=== PATIENT | female | born 1965 | race Caucasian/White ===

== ENCOUNTER 2020-10-24 18:21 | Emergency (ER) | payer MEDICAID, SELFPAY ==
[2020-10-24 18:26] VITALS: BP 116/57; PULSE 87; RESP 16; TEMP 36.3; O2SAT 95; BMI 22.6
--- NOTE | 2020-10-24 18:36 | XRR_ITS ---
PROCEDURE INFORMATION: Exam: XR Left Knee Exam date and time: 10/24/2020 6:36 PM Age: 55 years old Clinical indication: Injury or trauma; Fall; Sprain or strain; Patella or knee; Left TECHNIQUE: Imaging protocol: XR Left knee. Views: 3 views. COMPARISON: No relevant prior studies available. FINDINGS: Bones/joints: There is possibly a mildly displaced fracture lucency of anterior tibial eminence. Joint effusion present. Diffuse osseous demineralization changes. Moderate severity diffuse joint space narrowing. Soft tissues: Normal. Vasculature: Scattered atherosclerosis. Other findings: Tibiofemoral alignment is unremarkable. XR/XR knee LT 3V* [id number] IMPRESSION: 1. Fracture of the tibial plateau is suspected in the region of the tibial eminence. 2. CT left knee recommended.
--- NOTE | 2020-10-24 18:46 | W.ED.EXTPRO ---
HPI - Extremity Problem General: Chief complaint: Extremity Injury, Lower Stated complaint: Twisted L. Knee Time Seen by Provider: 10/24/20 18:36 History of Present Illness: HPI Narrative: 55-year-old female comes in today with complaints of left knee injury. On exam patient has tenderness along the lateral medial joint line. Patient is able to manipulate the knee but has some decrease in extension. Patient reports she was getting up and she twisted her knee. Patient does have a history of a left hip replacement. Patient appears well. Patient appears no acute distress. MD Complaint: joint pain Onset (ago): hour(s) Location: left (knee) Quality: sharp Relieving factors: rest Exacerbating factors: weight bearing Review of Systems General: Reports: 10 or more systems reviewed and unremarkable except in HPI and below Musc: Reports: other (twisted left knee) Physical Exam Const: COMMON NORMALS: no acute distress and patient oriented x3 GENERAL APPEARANCE: cooperative HENMT: COMMON NORMALS: normocephalic and Normal external nose present HEAD & SCALP: normal to inspection and normocephalic NOSE: Normal external nose present Eye: GENERAL EYE: appearance normal, both eyes and all related structures Neck/C-Spine: COMMON NORMALS: full ROM Chest: COMMONS NORMALS: normal inspection of the chest Resp: COMMON NORMALS: normal respiratory effort EFFORT & INSPECTION: Yes able to speak in complete sentences Cardio: COMMON NORMALS: regular rate and regular rhythm RATE: regular rate RHYTHM: regular rhythm Extremity: NARRATIVE EXTREMITY EXAM: Varicose veins, tenderness of the joint line of the left knee with minimal swelling. Distal pulses are intact. Skin is warm and dry. Decrease in extension. No obvious deformity. Patient is able to lift the leg off the floor and manipulated. Stable joint with pressure tests along each of the axis. Neuro: COMMON NORMALS: patient oriented x3 and moves all extremities Psych: COMMON NORMALS: mental status grossly normal and cooperative Skin: COMMON NORMALS: no rashes or lesions noted GENERAL SKIN EXAM: no rashes or lesions noted Course Vital Signs: Vital signs: Vital Signs Temperature 97.3 F L 10/24/20 18:26 Pulse Rate 87 10/24/20 19:00 Respiratory Rate 16 10/24/20 19:00 Blood Pressure 119/90 10/24/20 19:00 Pulse Oximetry 98 10/24/20 19:00 MDM - Extremity (Nontraumatic) MDM Narrative: Medical decision making narrative: Patient comes in today for complaints of injury to the left knee. On exam patient has tenderness to the joint line of the knee. Some decrease in the extension. Minimal swelling. No sign of redness or inflammation. Differential diagnosis includes sprain, cartilage or meniscal injury, fracture. X-ray was normal. Reviewed exam with patient with recommendations for treatment and follow-up. Patient reported understanding agreed to plan. Discharge Plan Discharge Patient Disposition: Home Clinical Impression: Injury of knee, left Qualifiers: Encounter type: initial encounter Qualified Code(s): S89.92XA - Unspecified injury of left lower leg, initial encounter Condition: Stable Prescriptions: New diclofenac potassium 50 mg tablet 50 mg PO TID PRN (Reason: pain) Qty: 12 RF: 0 Discharge Orders: Discharge ED (Routine); Ordered 10/24/20 Ordered By: Benito Tang Discharge Diet: Usual diet Discharge Activity: Increase activity as tolerated Patient Instructions: Knee Sprain (ED), Opioid Safety Activity Restrictions/Additional Instructions: Take medication as directed. Use ice on the knee on and off for the first 48 hours. After that use heat or ice either for comfort. Use an elastic bandage as needed for comfort. Increase activity to the knee as tolerated. Use crutches for ambulation if unable to bear weight on it. Follow-up with primary care in 1 week for recheck. Return to the emergency department for new concerns. Coding Level of Care Code ED Automatic Spinning Lathe Operator for Chuyita Fwruth Exam Comprehensive
[2020-10-24 19:00] VITALS: BP 119/90; PULSE 87; RESP 16; O2SAT 98
--- NOTE | 2020-10-25 11:20 | PC.NURSE ---
Attempted to call pt in regards to XR results per Dr Barreto request. Unable to reach pt, message left.
--- NOTE | 2020-10-25 11:29 | PC.NURSE ---
Pt contacted and notified that she needs to return to ED for further evaluation.
== END 2020-10-24 19:49 | disposition home or self-care (01) ==
PROVIDERS: Emergency Provider Nurse Practitioner Family
DX: S89.92XA Unspecified injury of left lower leg, initial encounter (principal); X50.1XXA Overexertion from prolonged static or awkward postures, initial encounter
CPT/HCPCS: 73562; 99283; E0114

== ENCOUNTER 2020-10-25 15:01 | Emergency (ER) | payer MEDICAID, SELFPAY ==
--- NOTE | 2020-10-25 15:08 | CT_ITS ---
WS: [id number] Exam: CT knee LT wo con* [id number] Date/Time of Exam: 10/25/2020 3:40 PM Reason For Exam: possible tibeal plateau fracture DLP: 153.[address] scans at [facility] use at least one of these dose optimization techniques: automat ed exposure control; mA and/or kV adjustment per patient size (includes targeted exams where dose is matched to clinical indication); or iterative reconstruction. Knees evaluated in the axial plane with sagittal and coronal reformatted images. A mildly depressed comminuted fracture of the lateral tibial plateau is noted. Fractures also extend into the central proximal tibia in the region of the tibial spines. The anterior tibial spine is avul sed and slightly . The distal femur is intact. There is hemarthrosis. Diffuse osteopenia. Th e fibula is intact. CT/CT knee LT wo con* [id number] IMPRESSION: 1. Comminuted slightly depressed fracture of the lateral tibial plateau. 2. Comminuted fracture of the tibial eminence with avulsion of the anterior tib ial spine. Nondisplaced fracture of the posterior tibial spine also noted. 3. Hemarthrosis.
[2020-10-25 15:20] VITALS: BP 156/80; PULSE 75; RESP 18; TEMP 36.9; O2SAT 99; BMI 22.6
--- NOTE | 2020-10-25 15:37 | ED_ITS ---
HPI - Extremity Problem General: Chief complaint: Extremity Injury, Lower Stated complaint: RECHECK FROM LAST NIGHT PER [facility]IA Time Seen by Provider: 10/25/20 15:27 History of Present Illness: HPI Narrative: Patient presents with follow-up on left knee were possibly sustained a fracture of the tibial plateau radiology recommend a CT done. Complaint: extremity pain Onset (ago): hour(s) Pain Consistency: constant Location: left and knee Severity scale (1-10): 6 Quality: aching Relieving factors: immobilization Exacerbating factors: weight bearing Associated symptoms: Reports no associated symptoms; Deny fever(s) Review of Systems Const: Denies: fever(s) or chills Musc: Reports: joint pain Psych: Denies: anxiety Physical Exam Const: COMMON NORMALS: no acute distress Extremity: LEFT LOWER EXTREMITY: Yes knee joint (Swelling pain) Psych: COMMON NORMALS: mental status grossly normal Course Vital Signs: Vital signs: Vital Signs Temperature 98.5 F 10/25/20 15:20 Pulse Rate 75 10/25/20 15:20 Respiratory Rate 18 10/25/20 15:20 Blood Pressure 156/80 10/25/20 15:20 Pulse Oximetry 99 10/25/20 15:20 Discharge Plan Discharge Prescriptions: No Action diclofenac potassium 50 mg tablet 50 mg PO TID PRN (Reason: pain) Qty: 12 RF: 0 Coding Level of Care Code ED Examiner Of Currency for Chuyita Parsons
--- NOTE | 2020-10-28 08:07 | DCPLANNER ---
game breeding farm manager had message to schedule a follow up appointment scheduled for patient with ortho. game breeding farm manager called the ortho clinic, spoke with Juani, gave clinic patients information to clinic. game breeding farm manager was told that patients information would be printed and reviewed. Clinic will call patient with appointment information.
--- NOTE | 2020-11-15 07:22 | DCPLANNER ---
Patient had a follow up appointment scheduled for 10.29.[address] Bowie at [facility] - patient did attend appointment.
== END 2020-10-25 16:57 | disposition home or self-care (01) ==
PROVIDERS: Emergency Provider Nurse Practitioner Family
DX: M25.562 Pain in left knee (principal)
CPT/HCPCS: 29530; 73700; 99283

== ENCOUNTER → 2020-11-26 13:57 | Outpatient (BNVA) | payer MEDICAID, SELFPAY | PROVIDERS: Visit Provider Orthopaedic Surgery | DX: S82.115A Nondisplaced fracture of left tibial spine, initial encounter for closed fracture (principal); X58.XXXA Exposure to other specified factors, initial encounter | CPT/HCPCS: 73562 ==

== ENCOUNTER → 2021-01-30 08:02 | Outpatient (BNVA) | payer MEDICAID, SELFPAY | PROVIDERS: PCP Nurse Practitioner Family; Referring Provider Orthopaedic Surgery; Visit Provider Specialist | DX: R20.0 Anesthesia of skin (principal); R20.2 Paresthesia of skin; M79.604 Pain in right leg; M79.605 Pain in left leg; F17.200 Nicotine dependence, unspecified, uncomplicated | CPT/HCPCS: 95886; 95909; 99202 ==

== ENCOUNTER 2021-02-20 18:19 | Emergency (ER) | payer MEDICAID, SELFPAY ==
[2021-02-20 18:25] VITALS: BP 149/105; PULSE 90; RESP 19; TEMP 35.9; O2SAT 99; BMI 22.6
[2021-02-20] MEDS: sodium chloride 0.9% 1,000 ML 999 ML IV ×2 (19:05→20:26)
--- NOTE | 2021-02-20 19:05 | ED_ITS ---
HPI - General Adult General: Chief complaint: General Medical Stated complaint: ETOH INTOX Time Seen by Provider: 02/20/21 18:31 History of Present Illness: HPI narrative: This patient presents to the emergency department via EMS. She states she is here because she thinks she needs some fluids to help with her detox and sobering up. She states she has been drinking alcohol daily for the last several days. She states she desires to quit drinking. She has had a longstanding history of recurrent drinking but not to this level. She has no thoughts of harming herself. She denies any other constitutional complaints at this time. Associated symptoms: Reports vomiting; Deny chest pain, dyspnea, headache(s), rash or palpitations Review of Systems Const: Denies: fever(s) or chills Eyes: Reports: blind spots; Denies: change in vision, blurry vision or eye discomfort ENMT: Denies: throat pain, odynophagia or nasal obstruction Card: Denies: chest pain, palpitations, irregular heart rhythm or edema Resp: Denies: dyspnea or productive cough GI: Reports: vomiting; Denies: abdominal pain, hematemesis or coffee ground emesis : Denies: flank pain, difficulty voiding or dysuria Musc: Denies: neck pain, back pain or extremity pain Skin/Breast: Denies: rash or pruritus Neuro: Denies: headache(s), numbness in extremities or sensory changes Psych: Denies: depression, mood swings, panic attacks, sleeping less, sleeping more, change in appetite, irritability, visual hallucinations, auditory hallucinations, tactile hallucinations, suicidal ideation or homicidal ideation [facility] ED PFSH: Social History Smoking and tobacco status: current some day smoker (occassionally) Physical Exam Const: COMMON NORMALS: no acute distress and patient oriented x3 OTHER: She makes good eye contact. She is very loquacious but goal-directed in her speech. HENMT: THROAT: posterior oropharynx normal Eye: COMMON NORMALS: Equal, round and reactive pupils present and EOMs intact bilaterally CONJUNCTIVA: Yes conjunctival abnormal (Injected) PUPIL: Yes Equal, round and reactive pupils present Neck/C-Spine: COMMON NORMALS: full ROM and no lymphadenopathy Chest: COMMONS NORMALS: normal inspection of the chest Resp: COMMON NORMALS: normal respiratory effort, No retractions and clear to auscultation bilaterally AUSCULTATION: clear to auscultation bilaterally Cardio: COMMON NORMALS: regular rhythm and No murmurs present (Cardio) RHYTHM: regular rhythm GI: COMMON NORMALS: Normal to inspection, nondistended, normoactive bowel sounds present, Soft to palpation and non-tender PALPATION: Yes Soft to palpation : COMMON NORMALS: Yes no CVA tenderness BLADDER/KIDNEY EXAM: Yes no CVA tenderness and Yes CVA tenderness Back/Pelvis: COMMON NORMALS: no CVA tenderness, thoracic and lumbar spine normal to inspection, no thoracic nor lumbar tenderness and thoraco-lumbar ROM normal GENERAL BACK: Yes CVA tenderness Extremity: COMMON NORMALS: normal to inspection, full ROM, capillary refill normal, no joint enlargement and no calf tenderness Neuro: COMMON NORMALS: patient oriented x3, moves all extremities, no focal motor deficits, no sensory deficits noted and gait normal CRANIAL NERVES: Yes CN normal except as noted Skin: COMMON NORMALS: no rashes or lesions noted and no wounds GENERAL SKIN EXAM: no rashes or lesions noted Course Reevaluation(s): Reevaluation #1: The patient is desires to leave the emergency department. I advised her there is probably a good idea for us to give her a little bit of fluids as well as some Pepcid to make her feel subjectively improved. We will also start her on course of Librium to help her withdrawal from alcohol. She again is stable and has had no thoughts of harming herself and her ultimate desires to go home with family. Vital Signs: Vital signs: Vital Signs Temperature 96.6 F L 02/20/21 18:25 Pulse Rate 90 02/20/21 18:25 Respiratory Rate 19 H 02/20/21 18:25 Blood Pressure 149/105 02/20/21 18:25 Pulse Oximetry 99 02/20/21 18:25 Discharge Plan Discharge Prescriptions: No Action diclofenac potassium 50 mg tablet 50 mg PO TID PRN (Reason: pain) Qty: 12 RF: 0 hydrocodone-acetaminophen 5-325 mg tablet 1 tab PO TID PRN (Reason: pain) Qty: 14 RF: 0 Coding Level of Care Code ED Mowing Machine Operator for Chg Fwd Exam Comprehensive
[2021-02-20] MEDS: famotidine 20 mg/2 mL INJ IVP (19:08)
[2021-02-20] MEDS: chlordiazePOXIDE 25 mg Capsule PO (19:27)
[2021-02-20 19:28] LABS: Basophils # 0.1 10^3/uL (0.0-0.1); Basophils % 0.7 %; Eosinophils # 0.2 10^3/uL (0.0-0.8); Eosinophils % 2.3 %; Hematocrit 43.3 % (37.0-47.0); Hemoglobin 14.6 g/dL (11.5-15.3); Lymphocytes # 3.6 10^3/uL (0.8-4.8); Lymphocytes % 41.7 %; Mean Corpuscular HGB Conc 33.7 g/dL (30.0-36.0); Mean Corpuscular Volume 91.9 fl (81-99); Mean Platelet Volume 10.2 fL (7.4-10.4); Monocytes # 0.5 10^3/uL (0.2-0.9); Monocytes % 5.5 %; Neutrophils # 4.24 10^3/uL (1.8-7.7); Neutrophils % 49.3 %; Nucleated Red Blood Cells % 0 %; Platelet Count 256 10^3/cmm (130-400); Red Blood Count 4.71 10^6/uL (4.1-5.3); Red Cell Distribution Width 15.2 % (12.1-15.1); White Blood Count 8.6 10^3/uL (4.0-10.0)
[2021-02-20 19:51] LABS: Alanine Aminotransferase 16 U/L (0-33); Albumin Level 4.3 g/dL (3.5-5.2); Alkaline Phosphatase 94 IU/L (35-105); Anion Gap 15.6 (5-19); Aspartate Amino Transferase 31 U/L (0-32); Blood Urea Nitrogen 10 mg/dL (6-20); Calcium 8.6 mg/dL (8.5-10.5); Carbon Dioxide 26 mmol/L (22-29); Chloride 104 mmol/L (98-107); Globulin 2.7 g/dL (1.3-4.6); Glomerular Filtration Rate 86.6 mL/min (90-130); Glucose 106 mg/dL (65-115); Magnesium 2.4 mg/dL (1.7-2.3); Osmolality Calculated 293 mOsm/kg (285-295); Potassium 3.6 mmol/L (3.5-5.1); Sodium 142 mmol/L (136-145); Total Bilirubin 0.3 mg/dL (0.15-1.2)
[2021-02-20 21:05] VITALS: BP 142/98
[2021-02-20 21:09] VITALS: BP 142/84; RESP 20; O2SAT 94
== END 2021-02-20 21:10 | disposition home or self-care (01) ==
PROVIDERS: Emergency Provider Emergency Medicine; PCP Nurse Practitioner Family
DX: F10.129 Alcohol abuse with intoxication, unspecified (principal); F17.210 Nicotine dependence, cigarettes, uncomplicated
CPT/HCPCS: 80053; 83735; 85025; 96361; 96374; 99283; J3490; J7030

== ENCOUNTER → 2021-03-20 14:09 | Outpatient (BNVA) | payer MEDICAID, SELFPAY | PROVIDERS: PCP Nurse Practitioner Family; Visit Provider Orthopaedic Surgery | DX: M79.604 Pain in right leg (principal); M79.605 Pain in left leg; M54.50 Low back pain, unspecified | CPT/HCPCS: 72100; 73562 ==

== ENCOUNTER 2021-04-13 16:46 | Emergency (ER) | payer MEDICAID, SELFPAY ==
[2021-04-13 16:55] VITALS: BP 152/84; PULSE 85; RESP 16; TEMP 36.7; O2SAT 97
--- NOTE | 2021-04-13 17:01 | ECG_ITS ---
[facility] Test Date: 2021-04-13 Pat Name: Tomeka Morrison Department: Room: Gender: Female Mva Reactor Operator Head: : 1965 Requested By: Amena Lawton Order Number: [id number] Misha MD: Andrea Figueredo M.D. Measurements Intervals [place] Rate: 82 P: 16 IA: 130 QRS: 121 QRSD: 116 T: -7 QT: 422 QTc: 494 Interpretive Statements SINUS RHYTHM LEFT ATRIAL ENLARGEMENT [-0.15mV P-WAVE IN V1/V2] LEFT POSTERIOR FASCICULAR BLOCK [QRS AXIS > 109, INFERIOR Q] PROBABLE INFERIOR MYOCARDIAL INFARCTION , OF INDETERMINATE AGE [35 ms Q WAVE IN II/aVF] No previous ECG available for comparison Electronically Signed On 04-14-2021 17:10:26 RETAIL ROUTE SUPERVISOR by Andrea Figueredo M.D. [id number]
--- NOTE | 2021-04-13 17:26 | ED_ITS ---
Documented by User: Amena Lawton MD 04/13/21 17:33 HPI - General Adult General: Chief complaint: Abdominal Pain Stated complaint: UPPER ABD PAIN: N/V/D Time Seen by Provider: 04/13/21 16:58 History of Present Illness: HPI narrative: Patient is a 56-year-old female with history of CAD s/p stent x2, irritable bowel syndrome followed by Dr. Spencer presenting to emergency room with worsening mid epigastric Silvestre pain. Patient tells me the last 2 months she has had intermittent abdominal cramps, with occasional constipation and diarrhea. Patient denies any melena or hematochezia. Earlier today, patient drink significant alcohol has had midepigastric dull pain. Patient describes as gnarly abdominal pain associated nausea and vomiting. Patient presents emergency room for evaluation of pain. Patient states that she has yet to follow-up with a GI doctor for further evaluation of her symptoms. Denies any chest pain, shortness breath, diaphoresis, exertional dyspnea or chest pain. Patient has no pleuritic chest pain. No extremity surgery immobilization, denies hemoptysis. No history of DVT/PE or family or personal history aneurysm in the past. Onset: chronically 2 month, currently 6 hrs Duration:ongoing Location:home Severity:moderate Review of Systems Narrative: Constitutional: No fever, no chills. HEENT: No vision changes CV: No chest pain, no palpitations PULM: no cough, no dyspnea. GI: +rachel-epigstric abdominal pain, no N/V/D. : No dysuria MSKEL: No muscle pain SKIN: No new rashes, no lesions. NEURO: No headache, no focal weakness. HEME: No visible bruises PSYCH: Normal mood PFSH ED PFSH: Medical History Abdominal cramping GERD (gastroesophageal reflux disease) Smoker Social History Smoking and tobacco status: current every day smoker Physical Exam Narrative: EXAM NARRATIVE: Head: Atraumatic Eyes: PERRL, conjunctiva without injection ENT: Mucous membrane moist NECK: Supple, ROM intact LUNGS: LCTAB, no crackles/rhonchi CV: RRR ABDOMEN: Soft, +mild epigastric/LUQ/RLQ abdominal TTP. NO guarding rebound, guarding, rigidity. No CVA tenderness to percussion. Neg Grey/Neg McBurney's point tenderness, no suprabupic tenderness to palpation. EXTREMITY: Normal ROM SKIN: No rash or erythema NEURO: Awake and alert, no focal motor deficits PSYCH: Normal mood and affect Course Vital Signs: Vital signs: Vital Signs Temperature 98.1 F 04/13/21 16:55 Pulse Rate 79 04/13/21 18:02 Respiratory Rate 20 H 04/13/21 18:02 Blood Pressure 124/76 04/13/21 18:02 Pulse Oximetry 98 04/13/21 18:02 MDM - General Adult MDM Narrative: Medical decision making narrative: 56-year-old female history of CAD s/p stents x2, IBS presenting to emergency room with acute onset of midepigastric gabriele pain. On exam, patient is afebrile, hemodynamically stable with mild tenderness palpation upper quadrants. No Grey sign. Present time, do not suspect outflow stone pathology. Work-up including CBC CM P, lipase, troponin x2, EKG Interventions include IVF, Zofran, GI cocktail, and PO challenge Case signed out to Dr. Pacheco pending workup and reassessment Lab Data: Labs: Lab Results 04/13/21 04/13/21 04/13/21 17:42 17:42 17:42 WBC 8.4 10^3/uL 10^3/ uL (4.0-10.0) RBC 4.15 10^6/uL 10^6 /uL (4.1-5.3) Hgb 13.5 g/dL g/dL (11.5-15.3) Hct 40.1 % % (37.0-47.0) MCV 96.6 fl fl (81-99) MCH 32.5 pg pg (28.0-34.0) MCHC 33.7 g/dL g/dL (30.0-36.0) RDW 16.6 % H % (12.1-15.1) Plt Count 226 10^3/cmm 10^3 /cmm (130-400) MPV 9.9 fL fL (7.4-10.4) Neut % (Auto) 57.0 % % Lymph % (Auto) 35.3 % % [place] % (Auto) 6.1 % % Eos % (Auto) 0.8 % % Baso % (Auto) 0.4 % % Neut # (Auto) 4.81 10^3/uL 10^3 /uL (1.8-7.7) Lymph # (Auto) 3.0 10^3/uL 10^3/ uL (0.8-4.8) [place] # (Auto) 0.5 10^3/uL 10^3/ uL (0.2-0.9) Eos # (Auto) 0.1 10^3/uL 10^3/ uL (0.0-0.8) Baso # (Auto) 0.0 10^3/uL 10^3/ uL (0.0-0.1) Nucleated RBC % (a uto) 0 % % Nucleated RBCs # 0.0 /100WBC /100W BC Sodium 144 mmol/L mmol/L (136-145) Potassium 3.0 mmol/L L mmol /L (3.5-5.1) Chloride 102 mmol/L mmol/L (98-107) Carbon Dioxide 26 mmol/L mmol/L (22-29) Anion Gap 19.0 (5-19) BUN 5 mg/dL L mg/dL (6-20) Creatinine 0.6 mg/dL mg/dL (0.5-0.9) GFR Calculation 103.0 mL/min mL/m in (90-130) Glucose 100 mg/dL mg/dL (65-115) Calculated Osmolal ity 295 mOsm/kg mOsm/ kg (285-295) Calcium 7.6 mg/dL L mg/dL (8.5-10.5) Magnesium Total Bilirubin 0.3 mg/dL mg/dL (0.15-1.2) AST 155 U/L H U/L (0-32) ALT 26 U/L U/L (0-33) Alkaline Phosphata se 105 IU/L IU/L (35-105) Troponin T Gen 5 n g/L 8 ng/L ng/L (0-10) Total Protein 5.9 g/dL L g/dL (6.6-8.7) Albumin 3.8 g/dL g/dL (3.5-5.2) Globulin 2.1 g/dL g/dL (1.3-4.6) Lipase 162 U/L H U/L (13-60) Urine Color Urine Appearance Urine pH Ur Specific Gravit y Urine Protein Urine Glucose (UA) Urine Ketones Urine Blood Urine Nitrate Urine Bilirubin Urine Urobilinogen Ur Leukocyte Bisi ase Urine Opiates Scre en Ur Barbiturates Sc reen Ur Phencyclidine S crn Ur Amphetamines Sc reen U Benzodiazepines Scrn Urine Cocaine Scre en U Marijuana (THC) Screen Ethyl Alcohol 04/13/21 04/13/21 04/13/21 17:42 18:01 18:01 WBC RBC Hgb Hct MCV MCH MCHC RDW Plt Count MPV Neut % (Auto) Lymph % (Auto) [place] % (Auto) Eos % (Auto) Baso % (Auto) Neut # (Auto) Lymph # (Auto) [place] # (Auto) Eos # (Auto) Baso # (Auto) Nucleated RBC % (a uto) Nucleated RBCs # Sodium Potassium Chloride Carbon Dioxide Anion Gap BUN Creatinine GFR Calculation Glucose Calculated Osmolal ity Calcium Magnesium 1.6 mg/dL L mg/dL (1.7-2.3) Total Bilirubin AST ALT Alkaline Phosphata se Troponin T Gen 5 n g/L Total Protein Albumin Globulin Lipase Urine Color Yellow (Yellow) Urine Appearance Clear (CLEAR) Urine pH 7 (5-7) Ur Specific Gravit y 1.005 (1.005-1.030) Urine Protein Neg (Negative) Urine Glucose (UA) Norm (Normal) Urine Ketones Negative (Negative) Urine Blood Neg (Negative) Urine Nitrate Negative (Negative) Urine Bilirubin Neg (Negative) Urine Urobilinogen Norm mg/dL mg/dL (Negative) Ur Leukocyte Bisi ase Negative (Negative) Urine Opiates Scre en Negative ng/mL ng /mL (Negative) Ur Barbiturates Sc reen Negative ng/mL ng /mL (Negative) Ur Phencyclidine S crn Negative ng/mL ng /mL (Negative) Ur Amphetamines Sc reen Negative ng/mL ng /mL (Negative) U Benzodiazepines Scrn Negative ng/mL ng /mL (Negative) Urine Cocaine Scre en Negative ng/mL ng /mL (Negative) U Marijuana (THC) Screen Negative ng/mL ng /mL (Negative) Ethyl Alcohol 316 mg/dL H* mg/d L (0-10) Discharge Plan Discharge Patient Disposition: Home Clinical Impression: Abdominal pain, Nausea & vomiting, Gastritis Condition: Stable Prescriptions: New Zofran 4 mg tablet 4 mg PO TID PRN (Reason: nausea and vomiting) 4 Days Qty: 12 RF: 0 Pepcid 20 mg tablet 20 mg PO BID PRN (Reason: abdominal pain) 10 Days Qty: 20 RF: 0 Maalox Advanced 1,000-60 mg tablet,chewable 1 tab PO TID PRN (Reason: abdominal pain) 7 Days Qty: 21 RF: 0 No Action metoprolol tartrate 25 mg tablet 25 mg PO BID RF: 0 pantoprazole 20 mg tablet,delayed release (DR/EC) 20 mg PO DAILY Qty: 30 RF: 0 atorvastatin 40 mg tablet 40 mg PO DAILY Qty: 30 RF: 0 aspirin [Adult Aspirin Regimen] 81 mg tablet,delayed release (DR/EC) 81 mg PO DAILY Qty: 60 RF: 0 montelukast 10 mg tablet 10 mg PO DAILY Qty: 30 RF: 0 dicyclomine 20 mg tablet 20 mg PO .q8 Qty: 30 RF: 1 Discharge Orders: Discharge ED (Routine); Ordered 04/13/21 Ordered By: Reyes Pacheco Referrals: Miguel Kunz MD [Physician] - 4-7 days Zazueta,PILAR Connors [Primary Care Provider] - 1-3 days Discharge Diet: Advance as tolerated Discharge Activity: Resume usual activity Patient Instructions: Abdominal Pain (ED) Activity Restrictions/Additional Instructions: Please come back if you have any worsening abdominal pain, fever or chills, nausea or vomiting, diarrhea, blood in the stool, inability hold down liquid or solids, or any new concerning complaints. Our director of casework department will have you follow-up with Surgery [facility] to see if an endoscopy is needed to look at your stomach. Medications as directed. Coding Level of Care Code ED Compliance Monitor for Chg Fwd Documented by User: Reyes Pacheco DO 04/13/21 19:33 HPI - General Adult General: Chief complaint: Abdominal Pain Stated complaint: UPPER ABD PAIN: N/V/D Time Seen by Provider: 04/13/21 16:58 PFSH ED PFSH: Medical History Abdominal cramping GERD (gastroesophageal reflux disease) Smoker Social History Smoking and tobacco status: current every day smoker Course Vital Signs: Vital signs: Vital Signs Temperature 98.1 F 04/13/21 16:55 Pulse Rate 79 04/13/21 18:02 Respiratory Rate 20 H 04/13/21 18:02 Blood Pressure 124/76 04/13/21 18:02 Pulse Oximetry 98 04/13/21 18:02 MDM - General Adult MDM Narrative: Medical decision making narrative: 56-year-old female checked out to me by Dr. Lawton at shift change. This lady is a daily drinker of late. She has epigastric pain, improved with GI cocktail. She was given Zofran, and has not vomited here. Her potassium is 3.0, calcium is low. Magnesium is mildly low. Urine drug screen is negative. Alcohol is 315. She has no leukocytosis or fever. No significant elevation in her liver enzymes save a mildly elevated AST from drinking. She has a mildly elevated lipase questionably from vomiting versus alcoholic pancreatitis. She will be allowed home on liquid diet, to abstain from alcohol, Carafate and PPI for treatment as well as Zofran for nausea. She needs to follow-up with an endoscopist. Lab Data: Labs: Lab Results 04/13/21 04/13/21 04/13/21 17:42 17:42 17:42 WBC 8.4 10^3/uL 10^3/ uL (4.0-10.0) RBC 4.15 10^6/uL 10^6 /uL (4.1-5.3) Hgb 13.5 g/dL g/dL (11.5-15.3) Hct 40.1 % % (37.0-47.0) MCV 96.6 fl fl (81-99) MCH 32.5 pg pg (28.0-34.0) MCHC 33.7 g/dL g/dL (30.0-36.0) RDW 16.6 % H % (12.1-15.1) Plt Count 226 10^3/cmm 10^3 /cmm (130-400) MPV 9.9 fL fL (7.4-10.4) Neut % (Auto) 57.0 % % Lymph % (Auto) 35.3 % % [place] % (Auto) 6.1 % % Eos % (Auto) 0.8 % % Baso % (Auto) 0.4 % % Neut # (Auto) 4.81 10^3/uL 10^3 /uL (1.8-7.7) Lymph # (Auto) 3.0 10^3/uL 10^3/ uL (0.8-4.8) [place] # (Auto) 0.5 10^3/uL 10^3/ uL (0.2-0.9) Eos # (Auto) 0.1 10^3/uL 10^3/ uL (0.0-0.8) Baso # (Auto) 0.0 10^3/uL 10^3/ uL (0.0-0.1) Nucleated RBC % (a uto) 0 % % Nucleated RBCs # 0.0 /100WBC /100W BC Sodium 144 mmol/L mmol/L (136-145) Potassium 3.0 mmol/L L mmol /L (3.5-5.1) Chloride 102 mmol/L mmol/L (98-107) Carbon Dioxide 26 mmol/L mmol/L (22-29) Anion Gap 19.0 (5-19) BUN 5 mg/dL L mg/dL (6-20) Creatinine 0.6 mg/dL mg/dL (0.5-0.9) GFR Calculation 103.0 mL/min mL/m in (90-130) Glucose 100 mg/dL mg/dL (65-115) Calculated Osmolal ity 295 mOsm/kg mOsm/ kg (285-295) Calcium 7.6 mg/dL L mg/dL (8.5-10.5) Magnesium Total Bilirubin 0.3 mg/dL mg/dL (0.15-1.2) AST 155 U/L H U/L (0-32) ALT 26 U/L U/L (0-33) Alkaline Phosphata se 105 IU/L IU/L (35-105) Troponin T Gen 5 n g/L 8 ng/L ng/L (0-10) Total Protein 5.9 g/dL L g/dL (6.6-8.7) Albumin 3.8 g/dL g/dL (3.5-5.2) Globulin 2.1 g/dL g/dL (1.3-4.6) Lipase 162 U/L H U/L (13-60) Urine Color Urine Appearance Urine pH Ur Specific Gravit y Urine Protein Urine Glucose (UA) Urine Ketones Urine Blood Urine Nitrate Urine Bilirubin Urine Urobilinogen Ur Leukocyte Bisi ase Urine Opiates Scre en Ur Barbiturates Sc reen Ur Phencyclidine S crn Ur Amphetamines Sc reen U Benzodiazepines Scrn Urine Cocaine Scre en U Marijuana (THC) Screen Ethyl Alcohol 04/13/21 04/13/21 04/13/21 17:42 18:01 18:01 WBC RBC Hgb Hct MCV MCH MCHC RDW Plt Count MPV Neut % (Auto) Lymph % (Auto) [place] % (Auto) Eos % (Auto) Baso % (Auto) Neut # (Auto) Lymph # (Auto) [place] # (Auto) Eos # (Auto) Baso # (Auto) Nucleated RBC % (a uto) Nucleated RBCs # Sodium Potassium Chloride Carbon Dioxide Anion Gap BUN Creatinine GFR Calculation Glucose Calculated Osmolal ity Calcium Magnesium 1.6 mg/dL L mg/dL (1.7-2.3) Total Bilirubin AST ALT Alkaline Phosphata se Troponin T Gen 5 n g/L Total Protein Albumin Globulin Lipase Urine Color Yellow (Yellow) Urine Appearance Clear (CLEAR) Urine pH 7 (5-7) Ur Specific Gravit y 1.005 (1.005-1.030) Urine Protein Neg (Negative) Urine Glucose (UA) Norm (Normal) Urine Ketones Negative (Negative) Urine Blood Neg (Negative) Urine Nitrate Negative (Negative) Urine Bilirubin Neg (Negative) Urine Urobilinogen Norm mg/dL mg/dL (Negative) Ur Leukocyte Bisi ase Negative (Negative) Urine Opiates Scre en Negative ng/mL ng /mL (Negative) Ur Barbiturates Sc reen Negative ng/mL ng /mL (Negative) Ur Phencyclidine S crn Negative ng/mL ng /mL (Negative) Ur Amphetamines Sc reen Negative ng/mL ng /mL (Negative) U Benzodiazepines Scrn Negative ng/mL ng /mL (Negative) Urine Cocaine Scre en Negative ng/mL ng /mL (Negative) U Marijuana (THC) Screen Negative ng/mL ng /mL (Negative) Ethyl Alcohol 316 mg/dL H* mg/d L (0-10) Discharge Plan Discharge Patient Disposition: Home Clinical Impression: Abdominal pain, Nausea & vomiting, Gastritis Condition: Stable Prescriptions: New Zofran 4 mg tablet 4 mg PO TID PRN (Reason: nausea and vomiting) 4 Days Qty: 12 RF: 0 Pepcid 20 mg tablet 20 mg PO BID PRN (Reason: abdominal pain) 10 Days Qty: 20 RF: 0 Maalox Advanced 1,000-60 mg tablet,chewable 1 tab PO TID PRN (Reason: abdominal pain) 7 Days Qty: 21 RF: 0 No Action metoprolol tartrate 25 mg tablet 25 mg PO BID RF: 0 pantoprazole 20 mg tablet,delayed release (DR/EC) 20 mg PO DAILY Qty: 30 RF: 0 atorvastatin 40 mg tablet 40 mg PO DAILY Qty: 30 RF: 0 aspirin [Adult Aspirin Regimen] 81 mg tablet,delayed release (DR/EC) 81 mg PO DAILY Qty: 60 RF: 0 montelukast 10 mg tablet 10 mg PO DAILY Qty: 30 RF: 0 dicyclomine 20 mg tablet 20 mg PO .q8 Qty: 30 RF: 1 Discharge Orders: Discharge ED (Routine); Ordered 04/13/21 Ordered By: Reyes Pacheco Referrals: Miguel Kunz MD [Physician] - 4-7 days Zazueta,PILAR Connors [Primary Care Provider] - 1-3 days Discharge Diet: Advance as tolerated Discharge Activity: Resume usual activity Patient Instructions: Abdominal Pain (ED) Activity Restrictions/Additional Instructions: Please come back if you have any worsening abdominal pain, fever or chills, nausea or vomiting, diarrhea, blood in the stool, inability hold down liquid or solids, or any new concerning complaints. Our director of casework department will have you follow-up with Surgery [facility] to see if an endoscopy is needed to look at your stomach. Medications as directed. Coding Level of Care Code ED Compliance Monitor for Chuyita Parsons
[2021-04-13 17:53] LABS: Basophils % 0.4 %; Eosinophils # 0.1 10^3/uL (0.0-0.8); Eosinophils % 0.8 %; Hematocrit 40.1 % (37.0-47.0); Hemoglobin 13.5 g/dL (11.5-15.3); Lymphocytes % 35.3 %; Mean Corpuscular HGB Conc 33.7 g/dL (30.0-36.0); Mean Corpuscular Hemoglobin 32.5 pg (28.0-34.0); Mean Corpuscular Volume 96.6 fl (81-99); Mean Platelet Volume 9.9 fL (7.4-10.4); Monocytes # 0.5 10^3/uL (0.2-0.9); Monocytes % 6.1 %; Neutrophils # 4.81 10^3/uL (1.8-7.7); Nucleated Red Blood Cells % 0 %; Platelet Count 226 10^3/cmm (130-400); Red Blood Count 4.15 10^6/uL (4.1-5.3); Red Cell Distribution Width 16.6 % (12.1-15.1); White Blood Count 8.4 10^3/uL (4.0-10.0)
[2021-04-13] MEDS: sodium chloride 0.9% 1,000 ML 999 ML IV (17:55)
[2021-04-13] MEDS: ondansetron 2 mg/ML SDV 2 mL 4 MG IVP (17:55)
[2021-04-13 18:02] VITALS: BP 124/76; PULSE 79; RESP 20; O2SAT 98
[2021-04-13 18:20] LABS: Add Urine Microscopic? NO; Charge for UA Resulting for Rev
[2021-04-13 18:23] LABS: Bilirubin Urine Neg (Negative); Blood Urine Neg (Negative); Glucose Urine UA Norm (Normal); Ketones Urine Negative (Negative); Leukocyte Esterase Urine Negative (Negative); Nitrate Urine Negative (Negative); Protein Urine Neg (Negative); Specific Gravity, Urine 1.005 (1.005-1.030); Urine Appearance Clear (CLEAR); Urine Color Yellow (Yellow); Urobilinogen Urine Norm (Negative); pH Urine 7 (5-7)
[2021-04-13 18:24] LABS: Troponin T (5th) Once 8 ng/L (0-10)
[2021-04-13 18:28] LABS: Alanine Aminotransferase 26 U/L (0-33); Albumin Level 3.8 g/dL (3.5-5.2); Alkaline Phosphatase 105 IU/L (35-105); Aspartate Amino Transferase 155 U/L (0-32); Blood Urea Nitrogen 5 mg/dL (6-20); Calcium 7.6 mg/dL (8.5-10.5); Carbon Dioxide 26 mmol/L (22-29); Chloride 102 mmol/L (98-107); Globulin 2.1 g/dL (1.3-4.6); Glucose 100 mg/dL (65-115); Lipase 162 U/L (13-60); Osmolality Calculated 295 mOsm/kg (285-295); Sodium 144 mmol/L (136-145); Total Bilirubin 0.3 mg/dL (0.15-1.2); Total Protein 5.9 g/dL (6.6-8.7)
[2021-04-13 18:50] LABS: Magnesium 1.6 mg/dL (1.7-2.3)
[2021-04-13 18:50] LABS: Amphetamines Screen Urine Negative (Negative); Barbiturates Screen Urine Negative (Negative); Benzodiazepines Screen Urine Negative (Negative); Cocaine Screen Urine Negative (Negative); Opiate Screen Urine Negative (Negative); PCP Screen Urine Negative (Negative); THC Screen Urine Negative (Negative)
[2021-04-13 19:11] LABS: Alcohol Level 316 mg/dL (0-10)
[2021-04-13] MEDS: calcium gluconate 0.1 gm/mL 10% SDV 10mL 1 GM IVP (19:53)
[2021-04-13] MEDS: potassium chloride oral liq 20 mEq/15 mL UDC 40 MEQ PO (19:54)
[2021-04-13 20:01] LABS: Troponin 5 2HR 7.43 ng/L (0-10)
[2021-04-13 20:45] VITALS: BP 122/78; PULSE 80; RESP 18; O2SAT 100
--- NOTE | 2021-04-14 07:31 | DCPLANNER ---
agency development manager had message to schedule a follow up appointment for patient with general surgery. agency development manager emailed patients information to both Valerie and Isabel at [facility] General Surgery / ENT clinic. Patients information will be printed and reviewed. Clinic will call patient with appointment information.
--- NOTE | 2021-04-17 07:58 | DCPLANNER ---
Patient has a follow up appointment scheduled for , April 17, 2021 at 1:[address] Poe, at [facility] General Surgery. Clinic will call patient with appointment information.
--- NOTE | 2021-05-08 14:00 | DCPLANNER ---
Patient had a follow up appointment scheduled with general surgery - patient did attend appointment.
== END 2021-04-13 20:40 | disposition home or self-care (01) ==
PROVIDERS: Emergency Medicine; Emergency Provider Emergency Medicine; PCP Nurse Practitioner Family
DX: K29.70 Gastritis, unspecified, without bleeding (principal); Z79.82 Long term (current) use of aspirin; F17.210 Nicotine dependence, cigarettes, uncomplicated
CPT/HCPCS: 36415; 80053; 80306; 80307; 81003; 83690; 83735; 84484; 85025; 93005; 96361; 96374; 96375; 99284; J0610; J2405; J7030

== ENCOUNTER → 2021-05-26 10:21 | Outpatient (BNVA) | payer MEDICAID, SELFPAY | PROVIDERS: PCP Nurse Practitioner Family; Visit Provider Surgery | DX: Z11.52 Encounter for screening for COVID-19 (principal) | CPT/HCPCS: 87635 ==

== ENCOUNTER 2021-06-24 10:06 | Outpatient (CLI) | payer MEDICAID, SELFPAY ==
--- NOTE | 2021-06-24 10:15 | US_ITS ---
WS: [id number] ULTRASOUND ABDOMEN LIMITED CLINICAL INFORMATION: R10.9 - Unspecified abdominal pain COMPARISON: None. FINDINGS: Liver Size: Upper limits of normal Craniocaudal length: 15.7 cm. Echogenicity: Normal. Surface nodularity: None. Mass (size and location): None. Bile ducts Intrahepatic ducts: Normal. Common bile duct diameter: 0.4 cm. Gallbladder Normal. Gallstones: None. Gallbladder sludge: None. Gallbladder wall thickening: None. Pericholecystic fluid: None. Sonographic Grey sign: Absent. Pancreas Normal as visualized. Right kidney: Normal. Hydronephrosis: None. Size: 10.3 cm x 5.3 cm x 3.9 cm. Abdominal aorta and IVC Visualized portions are normal. Ascites: None. US/US gall bladder 77823 IMPRESSION: 1. Liver size upper limits of normal. 2. Normal gallbladder. Normal common bile duct. 3. No hydronephrosis in RIGHT kidney.
== END 2021-06-24 10:07 | disposition home or self-care (01) ==
LOC: RAD 10:09
PROVIDERS: PCP Family Medicine Adult Medicine; Visit Provider Surgery
DX: R10.9 Unspecified abdominal pain (principal)
CPT/HCPCS: 76705

== ENCOUNTER → 2021-06-26 09:29 | Outpatient (BNVA) | payer MEDICAID, SELFPAY | PROVIDERS: PCP Family Medicine Adult Medicine; Visit Provider Family Medicine Adult Medicine | DX: E83.42 Hypomagnesemia (principal); E78.5 Hyperlipidemia, unspecified; E87.6 Hypokalemia; J86.9 Pyothorax without fistula | CPT/HCPCS: 80053; 80061; 83735; 85025 ==

== ENCOUNTER → 2021-07-07 09:58 | Outpatient (BNVA) | payer MEDICAID, SELFPAY | PROVIDERS: PCP Family Medicine Adult Medicine; Visit Provider Surgery | DX: Z20.822 Contact with and (suspected) exposure to COVID-19 (principal) | CPT/HCPCS: 87635 ==

== ENCOUNTER 2021-07-10 06:05 | Day surgery (SDC) | payer MEDICAID, SELFPAY ==
[2021-07-10 06:41] VITALS: BP 187/117; PULSE 80; RESP 18; TEMP 36.8; O2SAT 99
[2021-07-10] MEDS: sodium chloride 0.9% 1,000 ML 30 ML IV (06:44)
--- NOTE | 2021-07-10 07:00 | ANES.PREANE2 ---
Pre-Anesthetic Assessment Height/Weight: Height 1.63 m Weight 59.874 kg Temp Pulse Resp BP Pulse Ox 98.3 F 80 18 187/117 99 07/10/21 06:41 07/10/21 06:41 07/10/21 06:41 07/10/21 06:41 07/10/21 06:41 Preop Diagnosis: Abdominal pain Operation Date: 07/10/21 07:30 Proposed Procedures p EGD/Colon 86672 K21.9(Not Applicable) - Yaw Poe MD s Colonoscopy 62500 Z12.11(Not Applicable) - Yaw Poe MD Familial anesthetic complications: none Was Beta Carly taken within 24 hours: Yes Was Clonidine taken within 24 hours: N/A Last intake: Intake Last Liquid Date 07/09/21 Last Liquid Time 22:30 Last Solid Date 07/08/21 Last Solid Time 18:00 Social Tobacco 1/2 pack(s) per day 40+ pack years Exam alert, oriented x 3, clear to auscultation bilaterally and regular rate & rhythm Airway Submandibular: within normal limits Cervical ROM: within normal limits Mallampati: Class II Dentition: full Pulmonary Chronic Obstructive Pulmonary Disease and Exertional Dyspnea CV/HEM Coronary Artery Disease (PTCA 2016 x3) and Hypertension None reported Hepatic None reported GI Gastroesophageal Reflux Disease Metabolic None reported Musc/skel Lower Back Pain and Osteoarthritis/DJD Neuropsych Anxiety and Depression Anesthetic Plan ASA status: 3 Anesthesia: MAC Risk of > 500 ml blood loss (7ml/kg in children): No Medications/Allergies Home Medications Medication Instructions Recorded Confirmed Last Taken Type albuterol sulfate 90 mcg/actuation 2 puff INHALATION Q6H PRN #8.5 g 06/26/21 07/08/21 07/09/21 Rx aerosol inhaler (ProAir HFA) aspirin 81 mg tablet,delayed 81 mg PO DAILY #90 tab 06/26/21 07/08/21 07/09/21 Rx release (Adult Aspirin Regimen) atorvastatin 40 mg tablet 40 mg PO DAILY #30 tab 06/26/21 07/08/21 07/09/21 Rx dicyclomine 20 mg tablet 20 mg PO Q8H PRN #30 tab 06/26/21 07/08/21 06/26/21 Rx diphenhydramine HCl 25 mg tablet 25 mg PO TID PRN #90 tab 06/26/21 07/08/21 07/09/21 Rx ipratropium bromide 17 1 puff INHALATION QID PRN #12.9 g 06/26/21 07/08/21 07/09/21 Rx mcg/actuation HFA aerosol inhaler (Atrovent HFA) loratadine 10 mg tablet 10 mg PO DAILY #90 tab 06/26/21 07/08/21 07/09/21 Rx metoprolol tartrate 25 mg tablet 25 mg PO BID #60 tab 06/26/21 07/08/21 07/10/21 03:00 Rx nitroglycerin 0.4 mg sublingual 0.4 mg SUBLINGUAL Q5M PRN #10 tab 06/26/21 07/08/21 Unknown Rx tablet pantoprazole 20 mg tablet,delayed 20 mg PO DAILY PRN #30 tab 06/26/21 07/08/21 07/09/21 Rx release nebulizers #1 ea 06/30/21 07/08/21 07/09/21 Rx Allergies Allergy/AdvReac Type Severity Reaction Status Date / Time No Known Allergies Allergy Verified 06/26/21 08:28 Current Medications Generic Name Dose Route Start Last Admin Trade Name Freq PRN Reason Stop Dose Admin Sodium Chloride 1,000 mls @ 30 mls/hr 07/10/21 06:30 07/10/21 06:44 Sodium Chloride 0.9% IV 30 mls/hr .Q24H MACIEJ Administration PFSH Anesthesia Medical History Abdominal cramping Allergic rhinitis due to allergen CAD, multiple vessel 09/23/2015 3 stents placed Chronic low back pain with bilateral sciatica COPD (chronic obstructive pulmonary disease) Empyema GERD (gastroesophageal reflux disease) Hyperlipidemia Hypokalemia Hypomagnesemia IBS (irritable bowel syndrome) Smoker Surgical History History of lumpectomy of left breast Social History Smoking and tobacco status: current some day smoker Data Anesthesia Cardiac Studies: No Data to Display
--- NOTE | 2021-07-10 07:35 | P.HP_ITS ---
Same Day Surgery H&P Indication for Procedure/HPI DATE OF PROCEDURE: July 10, 2021 CHIEF COMPLAINT/INDICATIONFOR SURGICAL PROCEDURE: Bowel issues PREOP DIAGNOSIS: Abdominal pain PLANNED PROCEDURE: Operation Date: 07/10/21 07:30 Proposed Procedures p EGD/Colon 63870 K21.9(Not Applicable) - Yaw Poe MD s Colonoscopy 97577 Z12.11(Not Applicable) - Yaw Poe MD 04/24/2021 This is a pleasant 56 years old female patient complains of cramping abdominal pain particularly in the center of the abdomen associated with vomiting in the past.? Patient reports history of IBS and she still have her gallbladder.? Denies any other constitutional symptoms.? Per history patient never had a colonoscopy before. 07/10/2021 Patient comes today for EGD and colonoscopy ROS All systems have been reviewed negative except as per the above or per problem list Medications/Allergies* Allergies/Adverse Reactions Allergy/AdvReac Type Severity Reaction Status Date / Time No Known Allergies Allergy Verified 07/10/21 07:36 Current Medications: Generic Name Dose Route Start Last Admin Trade Name Freq PRN Reason Stop Dose Admin Sodium Chloride 1,000 mls @ 30 mls/hr 07/10/21 06:30 07/10/21 06:44 Sodium Chloride 0.9% IV 30 mls/hr .Q24H MACIEJ Administration Pertinent History/Comorbid Conditions* Medical History Abdominal cramping Allergic rhinitis due to allergen CAD, multiple vessel 09/23/2015 3 stents placed Chronic low back pain with bilateral sciatica COPD (chronic obstructive pulmonary disease) Empyema GERD (gastroesophageal reflux disease) Hyperlipidemia Hypokalemia Hypomagnesemia IBS (irritable bowel syndrome) Smoker Surgical History (Updated 06/26/21 @ 07:25 by Duglas Spencer MD) History of lumpectomy of left breast Social History Smoking and tobacco status: current some day smoker Pertinent Exam Findings alert, oriented x 3, regular rate & rhythm and procedure specific exam findings (Abdominal examination nontender nondistended soft) Recommendations Surgery/Procedure today (EGD and colonoscopy with possible biopsy) Coding Level of Care Code Acute Recruiter Account Manager for Yohannesg Jaqueline
[2021-07-10 08:09] VITALS: BP 156/98; PULSE 86; RESP 16; TEMP 36.1; O2SAT 97
[2021-07-10 08:24] VITALS: BP 178/118; PULSE 83; RESP 18; O2SAT 99
--- NOTE | 2021-07-10 19:12 | ANE.PACU2 ---
Inpatient post-anesthesia follow up: Airway intact: Yes Vital signs: Temperature 97 F Pulse Rate 83 Respiratory Rate 18 Blood Pressure 178/118 Pulse Oximetry 99 Oxygen Delivery Me thod Room Air Oxygen Flow Rate Fraction of Inspir ed Oxygen Hydration adequate: Yes Nausea and vomiting: No Pain level: 1 Mental status: Baseline
== END 2021-07-10 08:35 | disposition home or self-care (01) ==
PROVIDERS: PCP Family Medicine Adult Medicine; Visit Provider Surgery
PROC: 0DJ08ZZ Inspection of Upper Intestinal Tract, Via Natural or Artificial Opening Endoscopic (ICD-10-PCS; CPT 43235; principal; 2021-07-10 07:30)
PROC: 0DJD8ZZ Inspection of Lower Intestinal Tract, Via Natural or Artificial Opening Endoscopic (ICD-10-PCS; CPT 45378; 2021-07-10 07:30)
DX: Z12.11 Encounter for screening for malignant neoplasm of colon (principal); K21.9 Gastro-esophageal reflux disease without esophagitis; K57.30 Diverticulosis of large intestine without perforation or abscess without bleeding; K21.00 Gastro-esophageal reflux disease with esophagitis, without bleeding; K44.9 Diaphragmatic hernia without obstruction or gangrene; K29.70 Gastritis, unspecified, without bleeding; K29.80 Duodenitis without bleeding; F17.210 Nicotine dependence, cigarettes, uncomplicated; J44.9 Chronic obstructive pulmonary disease, unspecified; I25.10 Atherosclerotic heart disease of native coronary artery without angina pectoris; Z95.5 Presence of coronary angioplasty implant and graft; I10 Essential (primary) hypertension
CPT/HCPCS: 43239; 45378; 88305; J2704; J7030

== ENCOUNTER → 2021-07-15 11:02 | Outpatient (BNVA) | payer MEDICAID, SELFPAY | PROVIDERS: PCP Family Medicine Adult Medicine; Visit Provider Orthopaedic Surgery | DX: M54.41 Lumbago with sciatica, right side (principal); M54.42 Lumbago with sciatica, left side; G89.29 Other chronic pain; M48.062 Spinal stenosis, lumbar region with neurogenic claudication; M54.50 Low back pain, unspecified | CPT/HCPCS: 72110 ==

== ENCOUNTER → 2021-07-25 13:43 | Outpatient (BNVA) | payer MEDICAID, SELFPAY | PROVIDERS: PCP Family Medicine Adult Medicine; Visit Provider Registered Nurse Neonatal Intensive Care | DX: N39.0 Urinary tract infection, site not specified (principal) | CPT/HCPCS: 81000 ==

== ENCOUNTER 2021-09-09 19:17 | Emergency (ER) | payer MEDICAID, SELFPAY ==
[2021-09-09 19:39] VITALS: BP 147/83; PULSE 102; RESP 16; TEMP 37.2; O2SAT 98; BMI 23.1
[2021-09-09 20:32] LABS: Basophils # 0.1 10^3/uL (0.0-0.1); Basophils % 0.6 %; Eosinophils # 0.2 10^3/uL (0.0-0.8); Eosinophils % 1.9 %; Hematocrit 43.4 % (37.0-47.0); Hemoglobin 14.9 g/dL (11.5-15.3); Lymphocytes # 2.9 10^3/uL (0.8-4.8); Lymphocytes % 27.8 %; Mean Corpuscular HGB Conc 34.3 g/dL (30.0-36.0); Mean Corpuscular Hemoglobin 32.8 pg (28.0-34.0); Mean Corpuscular Volume 95.6 fl (81-99); Mean Platelet Volume 9.6 fL (7.4-10.4); Monocytes # 0.8 10^3/uL (0.2-0.9); Monocytes % 7.3 %; Neutrophils # 6.53 10^3/uL (1.8-7.7); Neutrophils % 61.9 %; Nucleated Red Blood Cells % 0 %; Platelet Count 289 10^3/cmm (130-400); Red Blood Count 4.54 10^6/uL (4.1-5.3); Red Cell Distribution Width 16.8 % (12.1-15.1); White Blood Count 10.5 10^3/uL (4.0-10.0)
[2021-09-09 20:46] LABS: Alanine Aminotransferase 23 U/L (0-33); Albumin Level 4.1 g/dL (3.5-5.2); Alkaline Phosphatase 142 IU/L (35-105); Anion Gap 19.6 (5-19); Aspartate Amino Transferase 66 U/L (0-32); Blood Urea Nitrogen 9 mg/dL (6-20); Calcium 8.9 mg/dL (8.5-10.5); Carbon Dioxide 23 mmol/L (22-29); Chloride 100 mmol/L (98-107); Globulin 3.5 g/dL (1.3-4.6); Glucose 117 mg/dL (65-115); Lipase 126 U/L (13-60); Osmolality Calculated 288 mOsm/kg (285-295); Potassium 3.6 mmol/L (3.5-5.1); Sodium 139 mmol/L (136-145); Total Bilirubin 0.3 mg/dL (0.15-1.2); Total Protein 7.6 g/dL (6.6-8.7)
[2021-09-09 21:16] LABS: Urine Color Yellow (Yellow)
[2021-09-09 21:17] LABS: Bilirubin Urine Neg (Negative); Blood Urine 2+ (Negative); Glucose Urine UA Norm (Normal); Ketones Urine Negative (Negative); Leukocyte Esterase Urine 2+ (Negative); Nitrate Urine Negative (Negative); Protein Urine Neg (Negative); Specific Gravity, Urine 1.005 (1.005-1.030); Urine Appearance SL Hazy (CLEAR); Urobilinogen Urine Norm (Negative); pH Urine 6 (5-7)
[2021-09-09 21:18] LABS: Add Urine Culture? Yes; Add Urine Microscopic? YES; Bacteria Urine 2+ /hpf; RBC Urine 0-4 /hpf (0-2); Squamous Epithelial Cell Urine 0-4 /hpf (0-5); WBC Urine 55-80 /hpf (0-5)
[2021-09-09 21:30] VITALS: BP 145/96; PULSE 99; RESP 16; O2SAT 97
--- NOTE | 2021-09-09 21:36 | CTR_ITS ---
PROCEDURE INFORMATION: Exam: CT Abdomen And Pelvis With Contrast Exam date and time: 09/09/2021 9:56 PM Age: 56 years old Clinical indication: Abdominal pain; Prior surgery; Surgery type: Csection; Patient HX: C/O epigastric pain x 1 week. ; Additional info: Abd pain TECHNIQUE: Imaging protocol: Computed tomography of the abdomen and pelvis with contrast. Radiation optimization: All CT scans at this facility use at least one of these dose optimization techniques: automated exposure control; mA and/or kV adjustment per patient size (includes targeted exams where dose is matched to clinical indication); or iterative reconstruction. Contrast material: OMNI 350; Contrast volume: 95 ml; Contrast route: INTRAVENOUS (IV); COMPARISON: CR XR lumbar spine min 4V [id number] 07/15/2021 11:10 AM RADIATION DOSE METRICS: Total DLP (mGy-cm): 985.07 FINDINGS: Lungs: There is right lower lobe pulmonary cyst. Liver: There is fatty infiltration of the liver. There is a subcentimeter low-attenuation lesion of the liver which is too small to accurately characterize but may represent a cyst. Gallbladder and bile ducts: Gallbladder is normal. Pancreas: Pancreas is normal. Spleen: Spleen is normal. Adrenal glands: Adrenals are normal. Kidneys and ureters: There is a subcentimeter low-attenuation lesion/lesions, of the left kidney which are too small to accurately characterize by CT. Stomach and bowel: There is severe thickening of the 2nd and 3rd portion of the duodenum with Kirsty duodenal fat stranding. There is a nonspecific but nonobstructive bowel gas pattern. Diverticulosis without diverticulitis. Appendix: No evidence of appendicitis. Intraperitoneal space: Unremarkable. No free air. No significant fluid collection. Vasculature: Mild aortic atherosclerosis with mild ectasia. Lymph nodes: Unremarkable. No enlarged lymph nodes. Urinary bladder: Unremarkable as visualized. Reproductive: Unremarkable as visualized. Bones/joints: There is a left hip prosthesis which obscures portions of the pelvis due to streak artifact. Soft tissues: Unremarkable. CT/CT abdomen pelvis w con* [id number] IMPRESSION: 1. Duodenitis of the 2nd and 3rd portions of the duodenum versus neoplastic/lymphoma involvement of the duodenal wall. Impression. 2. Fatty infiltration of the liver. 3. There is a nonspecific but nonobstructive bowel gas pattern. 4. Diverticulosis without diverticulitis. COMMENTS: Consistent with the [employer]'s Incidental Findings Committee white paper (J Am Shelley Radiol 2018): Any incidental renal lesion less than 1 cm or classified as too small to characterize, or any incidental cystic renal lesion characterized as simple-appearing, is likely benign. No follow-up imaging is recommended for these lesions per consensus recommendations based on imaging criteria.
--- NOTE | 2021-09-09 21:37 | W.ED.ABDPA2 ---
HPI - Abdominal Pain General: Chief Complaint: Abdominal Pain Stated Complaint: Gallbladder attack Time Seen by Provider: 09/09/21 19:48 Source: patient Mode of arrival: ambulatory Limitations: no limitations History of Present Illness: 56-year-old female who states that she is a chronic alcoholic she had an EGD a few months ago that showed an alcoholic gastritis she states that over the last few days she been having epigastric abdominal pain. States been sharp in nature denies any worsening proving factors states pain is currently a 6 out of 10 she is concerned it could be her gallbladder she had no fever no vomiting or diarrhea Associated Symptoms: Denies chills, diarrhea, dysuria, fever(s), nausea and vomiting Review of Systems Const: Denies: fever(s), chills, body aches or change in appetite Eyes: Denies: blurry vision or eye discomfort ENMT: Denies: throat pain or dental pain Card: Denies: chest pain Resp: Denies: dyspnea GI: Denies: abdominal pain, nausea, vomiting or diarrhea : Denies: dysuria Musc: Denies: neck pain or back pain Skin/Breast: Denies: rash Neuro: Denies: headache(s) Psych: Denies: depression Dillon/Lymph: Denies: easy bruising All/Imm: Denies: urticaria PFSH ED PFSH: Medical History Abdominal cramping Allergic rhinitis due to allergen CAD, multiple vessel 09/23/2015 3 stents placed Chronic low back pain with bilateral sciatica COPD (chronic obstructive pulmonary disease) Empyema GERD (gastroesophageal reflux disease) Hyperlipidemia Hypokalemia Hypomagnesemia IBS (irritable bowel syndrome) Smoker Surgical History History of colonoscopy History of esophagogastroduodenoscopy History of lumpectomy of left breast Social History Smoking and tobacco status: current some day smoker Physical Exam Const: COMMON NORMALS: no acute distress, patient oriented x3 and healthy appearing HENMT: COMMON NORMALS: normocephalic and atraumatic HEAD & SCALP: normocephalic and atraumatic Eye: COMMON NORMALS: Equal, round and reactive pupils present and EOMs intact bilaterally PUPIL: Yes Equal, round and reactive pupils present Neck/C-Spine: COMMON NORMALS: full ROM and supple Chest: COMMONS NORMALS: normal inspection of the chest and normal palpation of entire chest wall Resp: COMMON NORMALS: normal respiratory effort, No retractions, No use of accessory muscles and clear to auscultation bilaterally AUSCULTATION: clear to auscultation bilaterally Cardio: COMMON NORMALS: regular rate, regular rhythm and No murmurs present (Cardio) RATE: regular rate RHYTHM: regular rhythm GI: COMMON NORMALS: Normal to inspection, nondistended, normoactive bowel sounds present, Soft to palpation and no masses PALPATION: Yes Soft to palpation OTHER: epigastric tenderness Extremity: COMMON NORMALS: normal to inspection and full ROM Neuro: COMMON NORMALS: patient oriented x3, moves all extremities and no focal motor deficits Psych: COMMON NORMALS: mental status grossly normal, Normal thought process present and cooperative THOUGHT PROCESS: Normal thought process present Skin: COMMON NORMALS: no rashes or lesions noted and no wounds GENERAL SKIN EXAM: no rashes or lesions noted Course Vital Signs: Vital signs: Vital Signs Temperature 98.9 F 09/09/21 19:39 Pulse Rate 92 09/09/21 22:30 Respiratory Rate 17 09/09/21 22:30 Blood Pressure 136/83 09/09/21 22:30 Pulse Oximetry 92 09/09/21 22:30 MDM - Abdominal Pain Medical Decision Making Patient presents here with abdominal pain likely has an alcoholic gastritis along with a duodenitis. Increase her Protonix to 40 start her on clarithromycin pain meds nausea medicine I did not instruct her to stop drinking she is to follow-up with Dr. Poe again return if worsening she understands agrees to plan. Lab Data : 09/09/21 20:05 09/09/21 20:05 Labs/Radiology: Radiology Impressions Abdomen/Pelvis CT 09/09/21 21:36 IMPRESSION: 1. Duodenitis of the 2nd and 3rd portions of the duodenum versus neoplastic/lymphoma involvement of the duodenal wall. Impression. 2. Fatty infiltration of the liver. 3. There is a nonspecific but nonobstructive bowel gas pattern. 4. Diverticulosis without diverticulitis. COMMENTS: Consistent with the [employer]'s Incidental Findings Committee white paper (J Am Shelley Radiol 2018): Any incidental renal lesion less than 1 cm or classified as too small to characterize, or any incidental cystic renal lesion characterized as simple-appearing, is likely benign. No follow-up imaging is recommended for these lesions per consensus recommendations based on imaging criteria. Laboratory Results WBC 10.5 10^3/uL (4.0-10.0) H 09/09/21 20:05 RBC 4.54 10^6/uL (4.1-5.3) 09/09/21 20:05 Hgb 14.9 g/dL (11.5-15.3) 09/09/21 20:05 Hct 43.4 % (37.0-47.0) 09/09/21 20:05 MCV 95.6 fl (81-99) 09/09/21 20:05 MCH 32.8 pg (28.0-34.0) 09/09/21 20:05 MCHC 34.3 g/dL (30.0-36.0) 09/09/21 20:05 RDW 16.8 % (12.1-15.1) H 09/09/21 20:05 Plt Count 289 10^3/cmm (130-400) 09/09/21 20:05 MPV 9.6 fL (7.4-10.4) 09/09/21 20:05 Neut % (Auto) 61.9 % 09/09/21 20:05 Lymph % (Auto) 27.8 % 09/09/21 20:05 Armstrong % (Auto) 7.3 % 09/09/21 20:05 Eos % (Auto) 1.9 % 09/09/21 20:05 Baso % (Auto) 0.6 % 09/09/21 20:05 Neut # (Auto) 6.53 10^3/uL (1.8-7.7) 09/09/21 20:05 Lymph # (Auto) 2.9 10^3/uL (0.8-4.8) 09/09/21 20:05 Armstrong # (Auto) 0.8 10^3/uL (0.2-0.9) 09/09/21 20:05 Eos # (Auto) 0.2 10^3/uL (0.0-0.8) 09/09/21 20:05 Baso # (Auto) 0.1 10^3/uL (0.0-0.1) 09/09/21 20:05 Nucleated RBC % (auto) 0 % 09/09/21 20:05 Nucleated RBCs # 0.0 /100WBC 09/09/21 20:05 Sodium 139 mmol/L (136-145) 09/09/21 20:05 Potassium 3.6 mmol/L (3.5-5.1) 09/09/21 20:05 Chloride 100 mmol/L (98-107) 09/09/21 20:05 Carbon Dioxide 23 mmol/L (22-29) 09/09/21 20:05 Anion Gap 19.6 (5-19) H 09/09/21 20:05 BUN 9 mg/dL (6-20) 09/09/21 20:05 Creatinine 0.6 mg/dL (0.5-0.9) 09/09/21 20:05 GFR Calculation 103.0 mL/min (90-130) 09/09/21 20:05 Glucose 117 mg/dL (65-115) H 09/09/21 20:05 Calculated Osmolality 288 mOsm/kg (285-295) 09/09/21 20:05 Calcium 8.9 mg/dL (8.5-10.5) 09/09/21 20:05 Total Bilirubin 0.3 mg/dL (0.15-1.2) 09/09/21 20:05 AST 66 U/L (0-32) H 09/09/21 20:05 ALT 23 U/L (0-33) 09/09/21 20:05 Alkaline Phosphatase 142 IU/L (35-105) H 09/09/21 20:05 Total Protein 7.6 g/dL (6.6-8.7) 09/09/21 20:05 Albumin 4.1 g/dL (3.5-5.2) 09/09/21 20:05 Globulin 3.5 g/dL (1.3-4.6) 09/09/21 20:05 Lipase 126 U/L (13-60) H 09/09/21 20:05 Urine Color Yellow (Yellow) 09/09/21 20:05 Urine Appearance Sl hazy (CLEAR) 09/09/21 20:05 Urine pH 6 (5-7) 09/09/21 20:05 Ur Specific [place] 1.005 (1.005-1.030) 09/09/21 20:05 Urine Protein Neg (Negative) 05/03/22 20:05 Urine Glucose (UA) Norm (Normal) 09/09/21 20:05 Urine Ketones Negative (Negative) 09/09/21 20:05 Urine Blood 2+ (Negative) H 09/09/21 20:05 Urine Nitrate Negative (Negative) 09/09/21 20:05 Urine Bilirubin Neg (Negative) 09/09/21 20:05 Urine Urobilinogen Norm mg/dL (Negative) 09/09/21 20:05 Ur Leukocyte Esterase 2+ (Negative) H 09/09/21 20:05 Urine RBC 0-4 /hpf (0-2) H 09/09/21 20:05 Urine WBC 55-80 /hpf (0-5) H 09/09/21 20:05 Ur Squamous Epith Cells 0-4 /hpf (0-5) H 09/09/21 20:05 Amorphous Sediment Not Reportable 09/09/21 20:05 Urine Bacteria 2+ /hpf (NONE) H 09/09/21 20:05 Ethyl Alcohol 304 mg/dL (0-10) H* 09/09/21 20:05 Discharge Plan Discharge Patient Disposition: Home Clinical Impression: Duodenitis Condition: Stable Prescriptions: New hydrocodone-acetaminophen 5-325 mg tablet 1 tab PO Q6H PRN (Reason: pain) Qty: 14 0RF ondansetron 4 mg tablet,disintegrating 4 mg PO Q6H PRN (Reason: nausea and vomiting) Qty: 14 0RF clarithromycin 500 mg tablet 500 mg PO BID 10 Days Qty: 20 0RF Discontinued pantoprazole 20 mg tablet,delayed release (DR/EC) 20 mg PO DAILY PRN (Reason: esophagitis) Qty: 30 5RF No Action Atrovent HFA 17 mcg/actuation HFA aerosol inhaler 1 puff inhalation QID PRN (Reason: shortness of breath or wheezing) Qty: 12.9 5RF albuterol sulfate [ProAir HFA] 90 mcg/actuation HFA aerosol inhaler 2 puff inhalation Q6H PRN (Reason: shortness of breath or wheezing) Qty: 8.5 5RF aspirin [Adult Aspirin Regimen] 81 mg tablet,delayed release (DR/EC) 81 mg PO DAILY Qty: 90 3RF Hold Instructions: Resume on 07/15/21. atorvastatin 40 mg tablet 40 mg PO DAILY Qty: 30 5RF dicyclomine 20 mg tablet 20 mg PO Q8H PRN (Reason: abdominal cramps) Qty: 30 3RF metoprolol tartrate 25 mg tablet 25 mg PO BID Qty: 60 11RF diphenhydramine HCl 25 mg tablet 25 mg PO TID PRN (Reason: allergies or itching) Qty: 90 3RF Rx Instructions: 1 or two tabs at bedtime loratadine 10 mg tablet 10 mg PO DAILY Qty: 90 1RF nitroglycerin 0.4 mg tablet, sublingual 0.4 mg sublingual Q5M PRN (Reason: chest pain) Qty: 10 0RF Rx Instructions: do not exceed 3 doses per episode nitrofurantoin monohyd/m-cryst [Macrobid] 100 mg capsule 100 mg PO Q12H 5 Days Qty: 10 0RF Rx Instructions: must administer with a meal/food (DME) nebulizers Misc See Rx Instructions .Route Qty: 1 0RF Rx Instructions: As directed, use every 4-6 hours, as needed. Discharge Orders: Discharge ED (Routine); Ordered 09/09/21 Ordered By: Shefali Canseco Referrals: Duglas Spencer MD [Primary Care Provider] - Yaw Poe MD [Physician] - 1-3 days Discharge Diet: Advance as tolerated Discharge Activity: Resume usual activity Patient Instructions: Duodenitis (ED), Opioid Safety Coding Level of Care Code ED Studio Designer for g Fwd Exam Comprehensive
[2021-09-09] MEDS: iohexol 350 mg/mL 100 mL Btl IV (21:54)
[2021-09-09 22:05] VITALS: RESP 17; O2SAT 99
[2021-09-09] MEDS: ondansetron 2 mg/ML SDV 2 mL 4 MG IVP (22:05)
[2021-09-09] MEDS: morphine 4 mg/mL SDV 1 mL IVP (22:05)
[2021-09-09] MEDS: lidocaine 2% viscous 15 ML, aluminum-mag hydrox-simethicon 30 ML, sucralfate oral liq 1 GM PO (22:05)
[2021-09-09 22:25] LABS: Alcohol Level 304 mg/dL (0-10)
[2021-09-09 22:30] VITALS: BP 136/83; PULSE 92; RESP 17; O2SAT 92
[2021-09-09 23:08] VITALS: BP 116/72; PULSE 108; RESP 17; O2SAT 97
--- NOTE | 2021-09-10 15:58 | DCPLANNER ---
Addendum entered by Cha Sanders 09/25/21 14:24: Patient had a follow u appointment scheduled with general surgery - patient did attend appointment. Original Note: molding manager had message to schedule a follow up appointment for patient with general surgery. molding manager sent patients information to the front office staff at general surgery. Patients information will be printed and reviewed. Clinic will call patient with appointment information.
== END 2021-09-09 23:10 | disposition home or self-care (01) ==
PROVIDERS: Physician Assistant; Emergency Provider Emergency Medicine; PCP Family Medicine Adult Medicine
DX: K29.80 Duodenitis without bleeding (principal); Z79.82 Long term (current) use of aspirin; F10.20 Alcohol dependence, uncomplicated; Y90.8 Blood alcohol level of 240 mg/100 ml or more
CPT/HCPCS: 74177; 80053; 80307; 81001; 83690; 85025; 87086; 96374; 96375; 99284; J2270; J2405; Q9967

== ENCOUNTER → 2021-09-17 11:26 | Outpatient (BNVA) | payer MEDICAID, SELFPAY | PROVIDERS: PCP Family Medicine Adult Medicine; Visit Provider Surgery | DX: Z09 Encounter for follow-up examination after completed treatment for conditions other than malignant neoplasm (principal); R10.13 Epigastric pain | CPT/HCPCS: 99213 ==

== ENCOUNTER → 2021-10-22 08:08 | Outpatient (BNVA) | payer MEDICAID, SELFPAY | PROVIDERS: PCP Family Medicine Adult Medicine; Visit Provider Surgery | DX: R10.9 Unspecified abdominal pain (principal) | CPT/HCPCS: 99213 ==

== ENCOUNTER → 2021-11-04 10:34 | Outpatient (BNVA) | payer MEDICAID, SELFPAY | PROVIDERS: PCP Family Medicine Adult Medicine; Visit Provider Internal Medicine Cardiovascular Disease | DX: I25.10 Atherosclerotic heart disease of native coronary artery without angina pectoris (principal); E78.5 Hyperlipidemia, unspecified; J44.9 Chronic obstructive pulmonary disease, unspecified; K21.9 Gastro-esophageal reflux disease without esophagitis; F10.10 Alcohol abuse, uncomplicated; F17.200 Nicotine dependence, unspecified, uncomplicated | CPT/HCPCS: 93005; 99204 ==

== ENCOUNTER 2021-12-05 09:05 | Outpatient (CLI) | payer MEDICAID, SELFPAY ==
--- NOTE | 2021-12-05 10:00 | NM_ITS ---
WS: [id number] NUCLEAR MEDICINE HIDA SCAN WITH GALLBLADDER EJECTION FRACTION HISTORY: R10.9 - Unspecified abdominal pain COMPARISON: CT 09/09/2021 TECHNIQUE: The patient was intravenously injected with 7.3 mCi of TC99m Mebrofenin. Immediate imaging over the right upper quadrant was followed by 5 minute image and additional images for a total of 60 minutes. Normal uptake of radiotracer throughout the liver. Activity identified in the gallbladder at 30 minutes and well distended by 60 minutes. Activity in the proximal small bowel was seen by 15 minutes. Good washout of the radiotracer from the liver by 60 minutes. The patient then drank 8 ounces of Ensure Plus. Ejection fraction at 73 minutes was 73%. Normal GB ej ection fraction is 35-75%. Post fatty meal symptoms: None. NM/NM hepatobiliary w phar* [id number] IMPRESSION: 1. Normal HIDA scan. 2. Normal gallbladder ejection fraction.
== END 2021-12-05 09:06 | disposition home or self-care (01) ==
LOC: RAD 09:11
PROVIDERS: PCP Family Medicine Adult Medicine; Visit Provider Surgery
DX: R10.9 Unspecified abdominal pain (principal)
CPT/HCPCS: 78227; A9537

== ENCOUNTER → 2021-12-29 15:40 | Outpatient (BNVA) | payer MEDICAID, SELFPAY | PROVIDERS: PCP Family Medicine Adult Medicine; Visit Provider Obstetrics & Gynecology | DX: Z12.4 Encounter for screening for malignant neoplasm of cervix (principal); Z12.39 Encounter for other screening for malignant neoplasm of breast; Z01.419 Encounter for gynecological examination (general) (routine) without abnormal findings | CPT/HCPCS: 87624 ==

== ENCOUNTER → 2021-12-31 10:46 | Outpatient (BNVA) | payer MEDICAID, SELFPAY | PROVIDERS: PCP Family Medicine Adult Medicine; Visit Provider Surgery | DX: Z09 Encounter for follow-up examination after completed treatment for conditions other than malignant neoplasm (principal); R10.9 Unspecified abdominal pain | CPT/HCPCS: 99213 ==

== ENCOUNTER 2022-01-01 12:48 | Outpatient (CLI) | payer MEDICAID, SELFPAY ==
--- NOTE | 2022-01-01 13:30 | USCV_ITS ---
Tomeka Morrison Age: 56 Gender: F : 1965 Exam Date: 01/01/2022 13:51 Ordering Phys: Yaw Poe MD Technologist: Exam Location: [facility] [place] Indication: abd pain post eating Type of Exam: Mesenteric Artery 12 Ounces Of ensure Time of Ingestion: Minutes Post-Prandial: Pre-Prandial Post-Prandial SUPERIOR MESENTERIC ARTERY Aorta @ SMA: 71 cm/s 71 cm/s Celiac Artery: 75 cm/s 154 cm/s Hepatic Artery: 65 cm/s 201 cm/s SMA Prox 171 cm/s 254 cm/s SMA Mid: 191 cm/s 221 cm/s SMA Distal: 191 cm/s 199 cm/s ARISTIDES Prox: 104 cm/s 199 cm/s Findings: The resting velocities in the celiac, superior mesenteric and inferior mesenteric arteries are less than 200 cm/s, in the proximal segment of this arteries. The postprandial velocities in these arteries are found to be greater than 20% of the resting velocities, at the proximal segments of these arteries. Mid and distally SMA were found to have less than 20% increase in the resting velocities Conclusions Possibly no significant stenosis in the proximal segments of the celiac, SMA and ARISTIDES arteries. Blunted postprandial velocity response in the mid and distal segment of the superior mesenteric artery may suggest hemodynamically significant stenosis. However since the resting velocities were in the near normal range, the significance of this is questionable. Consider CTA to better evaluate the mesenteric arteries, if clinically indicated Dr Robert Bowen MD FAC (Electronically Signed) Final Date: 02 January 2022 11:39 S
== END 2022-01-01 12:49 | disposition home or self-care (01) ==
LOC: RAD 12:49
PROVIDERS: PCP Family Medicine Adult Medicine; Visit Provider Surgery
DX: R10.9 Unspecified abdominal pain (principal)
CPT/HCPCS: 93975

== ENCOUNTER 2022-01-09 12:01 | Outpatient (CLI) | payer MEDICAID, SELFPAY ==
--- NOTE | 2022-01-09 12:10 | MM_ITS ---
WS: [id number] VIEWS: MLO and CC views both breasts. 3D digital tomosynthesis is also included in this exam. No priors. Findings: 1 cm nodular density seen in the anterior medial left breast. There may be microcalcifications in thi s lesion. No architectural distortion. No other discrete lesions were identified in either breast. T he breasts are heterogeneously dense. Compression spot views with regional ultrasound of the left jasmin ast would be indicated for further workup. MM/[place] [id number] Impression: BI-RADS: 0-Incomplete: Need additional imaging evaluation FOLLOW-UP: See Report This mammogram was also analyzed by the Computer Aided Detection System R2 Imag e General Road Supervisor.
== END 2022-01-09 12:02 | disposition home or self-care (01) ==
PROVIDERS: PCP Family Medicine Adult Medicine; Visit Provider Obstetrics & Gynecology
DX: Z12.31 Encounter for screening mammogram for malignant neoplasm of breast (principal)
CPT/HCPCS: 77063; 77067

== ENCOUNTER → 2022-02-13 13:35 | Outpatient (BNVA) | payer MEDICAID, SELFPAY | PROVIDERS: PCP Family Medicine Adult Medicine; Visit Provider Obstetrics & Gynecology | DX: R87.610 Atypical squamous cells of undetermined significance on cytologic smear of cervix (ASC-US) (principal); R87.810 Cervical high risk human papillomavirus (HPV) DNA test positive | CPT/HCPCS: 88305 ==

== ENCOUNTER 2022-02-16 | Outpatient (CLI) | payer MEDICAID, SELFPAY | END 2022-02-16 23:00 | disposition home or self-care (01) | LOC: RAD 03-10 01:30 | PROVIDERS: PCP Family Medicine Adult Medicine; Visit Provider Obstetrics & Gynecology | DX: Z09 Encounter for follow-up examination after completed treatment for conditions other than malignant neoplasm (principal) | CPT/HCPCS: 99212 ==

== ENCOUNTER → 2022-02-17 11:16 | Outpatient (BNVA) | payer MEDICAID, SELFPAY | PROVIDERS: PCP Family Medicine Adult Medicine; Visit Provider Internal Medicine Cardiovascular Disease | DX: I25.10 Atherosclerotic heart disease of native coronary artery without angina pectoris (principal); E78.5 Hyperlipidemia, unspecified; J44.9 Chronic obstructive pulmonary disease, unspecified; K21.9 Gastro-esophageal reflux disease without esophagitis; I10 Essential (primary) hypertension; F17.200 Nicotine dependence, unspecified, uncomplicated | CPT/HCPCS: 99213; 99214 ==

== ENCOUNTER → 2022-04-07 09:44 | Outpatient (BNVA) | payer MEDICAID, SELFPAY | PROVIDERS: PCP Family Medicine Adult Medicine; Visit Provider Family Medicine Adult Medicine | DX: I10 Essential (primary) hypertension (principal); I25.10 Atherosclerotic heart disease of native coronary artery without angina pectoris; F10.10 Alcohol abuse, uncomplicated; E78.5 Hyperlipidemia, unspecified; J30.9 Allergic rhinitis, unspecified; R10.9 Unspecified abdominal pain; J44.9 Chronic obstructive pulmonary disease, unspecified; G47.00 Insomnia, unspecified | CPT/HCPCS: 80053; 80061; 84443; 85025 ==

== ENCOUNTER → 2022-04-09 10:25 | Outpatient (BNVA) | payer MEDICAID, SELFPAY | PROVIDERS: PCP Family Medicine Adult Medicine; Visit Provider Orthopaedic Surgery | DX: M48.062 Spinal stenosis, lumbar region with neurogenic claudication (principal); M47.816 Spondylosis without myelopathy or radiculopathy, lumbar region | CPT/HCPCS: 72110; 99213 ==

== ENCOUNTER 2022-12-17 08:31 | Outpatient (RCR) | payer MEDICAID, SELFPAY | END 2023-01-07 23:59 | disposition home or self-care (01) | LOC: SPT 08:31 | PROVIDERS: Visit Provider Orthopaedic Surgery | DX: M54.50 Low back pain, unspecified (principal); G89.29 Other chronic pain | CPT/HCPCS: 97161 ==

== ENCOUNTER 2023-02-07 06:00 | Outpatient (RCR) | payer MEDICAID, SELFPAY | END 2023-03-09 23:59 | disposition home or self-care (01) | LOC: SPT 06:00 | PROVIDERS: PCP Family Medicine Adult Medicine; Visit Provider Orthopaedic Surgery | DX: M54.50 Low back pain, unspecified (principal); G89.29 Other chronic pain | CPT/HCPCS: 97110 ==

== ENCOUNTER 2023-03-10 06:00 | Outpatient (RCR) | payer MEDICAID, SELFPAY | END 2023-03-16 23:59 | disposition home or self-care (01) | LOC: SPT 06:00 | PROVIDERS: PCP Family Medicine Adult Medicine; Visit Provider Orthopaedic Surgery | DX: M54.50 Low back pain, unspecified (principal); G89.29 Other chronic pain | CPT/HCPCS: 97110 ==

== ENCOUNTER → 2023-03-16 11:31 | Outpatient (BNVA) | payer MEDICAID, SELFPAY | PROVIDERS: PCP Family Medicine Adult Medicine; Visit Provider Internal Medicine Cardiovascular Disease | DX: I25.10 Atherosclerotic heart disease of native coronary artery without angina pectoris (principal); I10 Essential (primary) hypertension; E78.5 Hyperlipidemia, unspecified; J44.9 Chronic obstructive pulmonary disease, unspecified; F17.200 Nicotine dependence, unspecified, uncomplicated | CPT/HCPCS: 99214 ==

== ENCOUNTER → 2023-04-15 08:34 | Outpatient (BNVA) | payer MEDICAID, SELFPAY | PROVIDERS: PCP Family Medicine Adult Medicine; Visit Provider Family Medicine Adult Medicine | DX: K92.1 Melena (principal); F10.10 Alcohol abuse, uncomplicated; I25.10 Atherosclerotic heart disease of native coronary artery without angina pectoris; E78.5 Hyperlipidemia, unspecified; I10 Essential (primary) hypertension; F33.2 Major depressive disorder, recurrent severe without psychotic features; J43.1 Panlobular emphysema; F17.200 Nicotine dependence, unspecified, uncomplicated | CPT/HCPCS: 80053; 80061; 84443; 85025 ==

== ENCOUNTER 2023-04-16 08:46 | Outpatient (CLI) | payer MEDICAID, SELFPAY ==
[2023-04-16 09:19] VITALS: BMI 21.4
--- NOTE | 2023-04-16 09:19 | ECG_ITS ---
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 Interpretive Statements NAME OF STUDY: EXERCISE SESTAMIBI STRESS TEST INDICATION: Athrosclerotic Heart Disease PROCEDURE: The baseline electrocardiogram showed sinus tachycardia with a rate of [address]-T changes. At the baseline, the patient's blood pressure was 162/92 mm Hg with a heart rate of 114. The patient exercised for 4 minutes and 52 seconds on a standard Asaf protocol. Patient attained a maximum heart rate of 168 beats per minute(104% of the maximum predicted heart rate) with a blood pressure at the peak exercise of 180/90 mm Hg. The EKG at the peak exercise revealed more prominent, diffuse ST-T changes. Patient did not have any chest pain or any significant arrhythmis with the exercise Sestamibi was injected 1 minute prior to the peak exercise During the recovery phase, there were no new changes. Blood pressure at the end of the recovery phase was 142/93 mm Hg with a heart rate of 99 per minute. CONCLUSION: 1. Nonspecific ST-T changes with the treadmill exercise 2. No exercise-induced chest pain or cardiac arrhythmia 3. Impaired exercise tolerance, attained a maximum of 7.0 METs 4. Sestamibi/Sestamibi perfusion results pending; see separate report. Electronically Signed On 04-23-2023 11:15:11 SURGICAL AIDE by Robert Bowen M.D. [id number]
--- NOTE | 2023-04-16 09:20 | NMCV_ITS ---
NM gracie perf SPECT r/s* [id number] Tomeka Morrison Age: 58 Gender: F : 1965 Exam Date: 04/16/2023 10:23 Ordering Phys: Robert Bowen MD ([email or web address]) Technologist: SHAHIDA Wilson Exam Location: [facility] Indications: ATHEROSCLEROTIC HEART DISEASE STRESS TEST Please [facility] for [facility] IMAGE PROTOCOL Rest/Stress 1 Exercise Day Radiopharmaceutical Dose (mCi) Administration Site Administered by Rest: Tc-99m 10.4 IV SHAHIDA Harvey Sestamibi Stress:Tc-99m 32.5 IV SHAHIDA Harvey Sestamimadhu Rest: 16-Apr-2023 60 Discovery 630 Stress: 16-Apr-2023 15 Discovery 630 Radiopharmaceutical was injected at 98 % maximum heart rate. Images obtained in supine and prone position. SPECT RESULTS Technical Quality: Excellent Raw Data Analysis: Normal Image Corrections: No attenuation or motion correction applied Summed Stress Score: 5 Summed Rest Score: 0 Summed Difference Score: 5 PERFUSION FINDINGS Moderate area of moderately decreased tracer uptake was noted in the basal and mid inferolateral and mid anterolateral region. FUNCTIONAL RESULTS (calculated via Gated SPECT) Stress Image LV EF (%): 67 Stress EDV (mL):70 TID: 1.14 Stress ESV (mL):23 FUNCTIONAL FINDINGS: Segmental wall motion analysis revealing no gross wall motion abnormalities. The transient ischemic dilatation ratio was slightly elevated to 1.14 IMPRESSIONS 1. Myocardial perfusion imaging revealing moderate area of reversible defect involving the inferolateral knee and anterolateral region, suggestive of ischemia in the distribution of the left circumflex artery. 2. Normal LV ejection fraction of 67%. 3. LV wall motion analysis revealing no gross wall motion abnormalities. 4. Normal LV volume No similar previous studies are available for comparison Dr Robert Bowen MD [facility] (Electronically Signed) Final Date: 16 April 2023 13:58 S
[2023-04-16] MEDS: metoprolol tartrate 1 mg/1 mL SDV 5 mL 5 MG IV (11:13)
[2023-04-16 11:19] VITALS: BP 142/90; PULSE 99
== END 2023-04-16 08:47 | disposition home or self-care (01) ==
PROVIDERS: PCP Family Medicine Adult Medicine; Visit Provider Internal Medicine Cardiovascular Disease
DX: I25.10 Atherosclerotic heart disease of native coronary artery without angina pectoris (principal)
CPT/HCPCS: 36415; 78452; 93017; 96375; A9500; J3490

== ENCOUNTER → 2023-04-22 10:05 | Outpatient (BNVA) | payer MEDICAID, SELFPAY | PROVIDERS: PCP Family Medicine Adult Medicine; Visit Provider Internal Medicine Cardiovascular Disease | DX: I25.118 Atherosclerotic heart disease of native coronary artery with other forms of angina pectoris (principal); M79.604 Pain in right leg; M79.605 Pain in left leg; F17.200 Nicotine dependence, unspecified, uncomplicated; E78.2 Mixed hyperlipidemia; I10 Essential (primary) hypertension; R06.02 Shortness of breath | CPT/HCPCS: 99214 ==

== ENCOUNTER 2023-04-29 14:16 | Outpatient (CLI) | payer MEDICAID, SELFPAY ==
--- NOTE | 2023-04-29 14:30 | MR_ITS ---
WS: [id number] MRI LUMBAR SPINE NONCONTRAST HISTORY: M48.062 - Spinal stenosis, lumbar region with neurogenic ... COMPARISON: None available. TECHNIQUE: Sagittal and axial multisequence imaging is submitted. Central disc protrusion at C5-6 encroaching upon the ventral thecal sac. Straightening of the normal lumbar lordosis. 3 mm retrolisthesis of L2 and L3. Disc spaces are diffusely desiccated. No marrow edema or fracture. Conus terminates normally at L1-2 disc level. L1-L2: Mild annular disc bulging. No stenosis. L2-L3: Mild annular disc bulging encroaching upon the subarticular recesses. Slightly greater contact on the traversing LEFT L3 nerve root. Mild facet arthritis. L3-L4: Moderate RIGHT paracentral disc protrusion with encroachment and deformity of the RIGHT latera l thecal sac and nerve root contact. Greatest contact involving the traversing RIGHT L4 nerve root. T here is additional central and mild LEFT subarticular recess encroachment and facet arthritis. Mild c entral, subarticular recess and bilateral foraminal stenosis. L4-L5: Mild annular disc bulging encroaching upon the ventral thecal sac and subarticular recesses. M oderate ligamentum flavum and facet arthritis. Fluid in the facet joints. Disc contacts the traversin g L5 nerve roots. Mild central, subarticular recess and bilateral foraminal stenosis. L5-S1: Mild annular disc bulging with facet arthritis. Mild disc encroachment upon the exiting RIGHT L5 nerve root. Infrarenal abdominal aortic aneurysm 3.1 cm. IMPRESSION: 1. L3-4: Moderate sized RIGHT paracentral disc protrusion contacting the RIGHT lateral thecal sac and the traversing RIGHT L4 nerve root. 2. L3-4: Mild central, bilateral subarticular recess and foraminal stenosis. 3. L4-5: Mild central, subarticular recess and bilateral foraminal stenosis. Mild disc contact on the traversing L5 nerve roots. 4. Mild disc encroachment upon the exiting RIGHT L5 nerve root. 5. Infrarenal abdominal aortic aneurysm 3.1 cm.
== END 2023-04-29 14:17 | disposition home or self-care (01) ==
LOC: RAD 14:16
PROVIDERS: PCP Family Medicine Adult Medicine; Visit Provider Orthopaedic Surgery
DX: M48.062 Spinal stenosis, lumbar region with neurogenic claudication (principal); M51.26 Other intervertebral disc displacement, lumbar region
CPT/HCPCS: 72148

== ENCOUNTER 2023-05-04 09:01 | Outpatient (CLI) | payer MEDICAID, SELFPAY ==
--- NOTE | 2023-05-04 09:15 | USCV_ITS ---
Tomeka Morrison Age: 58 Gender: F : 1965 Exam Date: 05/04/2023 09:13 Ordering Phys: Robert Bowen MD ([email or web address]) Technologist: Gray Owusu Exam Location: [facility] [place] Indication: leg pain Risk Factors: ex smoker Previous Vascular Surgery: RIGHT LEFT BP: 140.0 / 80.00 BP: 140.0/ 80.00 0 0 Waveform Velocity (cm/s) Velocity (cm/s) Waveform Biphasic 85.4 Iliac Prox 75.3 Biphasic Biphasic Iliac Mid Biphasic 87.8 71.7 Biphasic 74.6 Iliac Distal 66.7 Biphasic Biphasic 83.9 PACKER DENTURE 78.8 Biphasic Biphasic 88.9 SFA Prox 80.9 Biphasic Biphasic 79.7 SFA Mid 82.4 Biphasic Biphasic 91.6 SFA Dist 80.9 Biphasic Biphasic 59.5 POP 51.1 Biphasic Biphasic 54.0 SMELTER OPERATOR 36.8 Biphasic Biphasic 55.4 DPA 50.1 Biphasic 1.0 LYNNE 1.0 FINDINGS Intimal thickening the iliac and femoral arteries bilaterally. Biphasic arterial Doppler waveforms bilaterally. Normal arterial Doppler flow velocities bilaterally Resting LYNNE 1.0 bilaterally. CONCLUSIONS No evidence of any significant arterial obstruction, based on the above findings. Dr Robert Bowen MD [facility] (Electronically Signed) Final Date: 05 May 2023 00:01 S
--- NOTE | 2023-05-04 11:00 | USCV_ITS ---
Tomeka Morrison Age: 58 Gender: F : 1965 Exam Date: 05/04/2023 09:38 Ordering Phys: Robert Bowen MD ([email or web address]) Technologist: Gray Owusu [place] [facility] [place]: sob BP: 140 / 80 HR: 70 Rhythm: Sinus Technical Quality: Adequate MEASUREMENTS (Male / Female) Normal Values 2D ECHO LV Diastolic Diameter PLAX 3.5 cm 4.2 - 5.9 / 3.9 - 5.3 cm LV Systolic Diameter PLAX 2.0 cm IVS Diastolic Thickness 1.5 cm 0.6 - 1.0 / 0.6 - 0.9 cm IVS Systolic Thickness 1.3 cm LVPW Diastolic Thickness 1.6 cm 0.6 - 1.0 / 0.6 - 0.9 cm LVPW Systolic Thickness 1.4 cm LVOT Diameter 2.0 cm LV Ejection Fraction 2D Teich 76.4 % LV Ejection Fraction MOD 2C 59.2 % LV Ejection Fraction 2C AL 59.1 % LA Diameter 3.5 cm IVC Diameter 2.0 cm DOPPLER AV Peak Velocity 136.0 cm/s LVOT Peak Velocity 112.0 cm/s AV Area Cont Eq vti 2.7 cm squared AV Area Cont Eq pk 2.5 cm squared MV Area PHT 3.3 cm squared Mitral E to A Ratio 1.3 MV E' Velocity 68.5 cm/s Mitral E to MV E' Ratio 8.9 Mitral E to LV E' Lateral Ratio 9.5 Mitral E to LV E' Septal Ratio 8.4 TR Peak Velocity 217.3 cm/s TR Peak Gradient 18.9 mmHg Right Atrial Pressure 3.0 mmHg Pulmonary Artery Systolic Pressu 21.9 mmHg RV Acceleration Time 0.2 s FINDINGS Left Ventricle Normal left ventricular size and systolic function, EF 63 %. Mild to moderate left ventricular hypertrophy. No regional wall motion abnormalities. Grade III/IV diastolic dysfunction (restrictive filling pattern), severely elevated filling pressures. Right Ventricle The right ventricle is normal in size and function. Right Atrium The right atrium is normal in size. Left Atrium Mildly increased left atrial size. Mitral Valve Mild mitral valve regurgitation. Thickened mitral valve. Aortic Valve No gross abnormalities noted Tricuspid Valve No gross abnormalities noted Pulmonic Valve Pulmonic valve not well visualized. Pericardium Normal pericardium without effusion. Aorta Normal ascending aorta dimension. IVC The inferior vena cava appears normal. CONCLUSIONS Normal left ventricular size and systolic function, EF 63 %. Mild to moderate left ventricular hypertrophy. No regional wall motion abnormalities. Grade III/IV diastolic dysfunction (restrictive filling pattern), severely elevated filling pressures. Mildly increased left atrial size. Mild mitral valve regurgitation. Thickened mitral valve. There is no pericardial effusion. There are no intracardiac masses. No similar previous studies are available for comparison Dr Robert Bowen MD [facility] (Electronically Signed) Final Date: 05 May 2023 00:12 S
== END 2023-05-04 09:02 | disposition home or self-care (01) ==
LOC: RAD 09:01
PROVIDERS: PCP Family Medicine Adult Medicine; Visit Provider Internal Medicine Cardiovascular Disease
DX: R07.9 Chest pain, unspecified (principal); R06.02 Shortness of breath; R06.09 Other forms of dyspnea; I73.9 Peripheral vascular disease, unspecified; I05.9 Rheumatic mitral valve disease, unspecified; I05.1 Rheumatic mitral insufficiency; M79.605 Pain in left leg; M79.604 Pain in right leg
CPT/HCPCS: 93306; 93925

== ENCOUNTER 2023-06-29 05:50 | Outpatient (CLI) | payer MEDICAID, SELFPAY ==
[2023-06-29] VITALS (13 sets, daily range): BP systolic 107–133; BP diastolic 63–89; PULSE 66–98; RESP 13–19; TEMP 36.7–36.8; O2SAT 93–99; BMI 21.9
--- NOTE | 2023-06-29 06:00 | XACV_ITS ---
Exam Room: 2 Gender: Female : 1965 Any Known Allergies: No known allergies Exam Priority: Routine Procedure(s): Procedure Description: Diagnostic procedure Procedure Description: PCI procedure Procedure Description: Left Heart Catheterization Procedure Description: PTCA Procedure Description: Miscellaneous Procedure Description: ACT Procedure Description: Coronary Angiography Andrés BEAVER; Diagnostic Cath Status: Elective Diagnostic Findings * The left main is a medium caliber short vessel with no significant stenotic lesions. * The left anterior descending artery is a medium caliber vessel which appears to wrap around the LV apex. Proximal patient requires at least 2 midnights stay, for further evaluation and management of his condition segment of the artery was found to have diffuse irregular narrowing of 20 to 30%. Just distal to the second diagonal branch, there was a and segmental narrowing of around 40%. The first and the second diagonal branch es were found to have 40 to 50% diffuse tubular narrowing in the proximal segments. * The left circumflex artery is a small to medium caliber nondominant vessel which was found to have around 40% tubular narrowing involving the ostium. The distal artery appears to bifurcate. Just before the bifurcation, there was a segmental narrowing of around 50%. One of the terminal bifurcation branches also was found to have 30 to 40% tubular narrowing distally. * The right coronary artery is a medium to large caliber dominant vessel which was found to have long since stented area involving the proximal and mid segment of the artery. Right after the first RV branch, there was a high-grade in-stent stenosis of around 95%. The distal stented segment was found to have 20 to 30% diffuse irregular narrowing. The PLV branch of the artery was found to have an area of high-grade stenosis of around 90% at the mid segment. PCI Status: Elective PCI Indication: Other Interventional Findings * Mid Right Coronary Artery:95% in-stent restenosis treated with a MDT NC EUPHORA RX 3.63H29ZX BALLOON. 0% residual stenosis, ARNOL: 3 flow. * PLV: 90% stenosis treated with a AB TREK 2.25X12 RX BALLOON. 0% residual stenosis, ARNOL: 3 flow. * Procedure details: We engaged RCA with JR4 guide catheter. IV heparin was administered to maintain anticoagulation. 0.014 run-through guidewire was used to cross the stenosis and was put in distal vessel. First dilated PLV stenosis with 2.25 x 12 mm semicompliant balloon. As it is small caliber vessel, we decided not to put a stent. We then turned our attention to severe mid RCA in-stent restenosis. We used 3.75 x 15 mm NC balloon to dilate the ISR at high pressure. This resulted in excellent stent expansion and no residual stenosis. We decided not to restent the vessel. Guidewire and guide catheter were removed. Patient left the Security Operations Analyst in a stable condition.. Conclusions 1. 58-year-old white female with history of coronary disease, status post multiple PCI's of the right coronary artery, present with increasing episodes of chest pains. She had a Myocardial perfusion imaging which revealed a moderate area of reversible defect in the inferolateral region. In view of the patient's ongoing symptoms, in order to further evaluate her coronary status, a cardiac catheterization was recommended. She underwent left heart catheterization with left and right coronary angiogram today. The findings are as follows. 2. 1. High-grade in-stent stenosis of around 95% in the mid RCA and another high-grade lesion of around 90% at the mid segment of the PLV branch of the right coronary artery. Mild to moderate diffuse disease in the other vessels. LVEDP 23 mmHg. 3. Based on the above angiographic findings, it was thought to be appropriate to consider PCI of the RCA lesions. I reviewed and discussed the case with Dr. Figueredo. Dr. Figueredo concurred with the plan. At this point, Dr. Figueredo took cover further management of this patient. 4. S/p successful revascularization of severe mid RCA ISR with balloon angioplasty and of severe PLV stenosis with balloon angioplasty. 5. PLV was treated with a Balloon. 6. Mid Right Coronary Artery was treated with a Balloon. Recommendations * Dual antiplatetelet therapy with aspirin and plavix. * High intenisty statin therapy. * Outpatient cardiology follow up in 2-4 weeks. Interventional RX Recommendation: PCI w/o planned CABG Diagnostic RX Recommendation: PCI w/o planned CABG Anticoagulation: Heparin LV EDP: 23 mmHg Left Ventriculography Findings: * LV gram was not performed since the patient had normal LV ejection fraction by echocardiogram. LVEDP was 23 mmHg. Pressures Phase:Rest AO : 104 / 63 ( 81 ) @ 7:32:00 AM 102 / 62 ( 81 ) @ 7:41:00 AM 138 / 107 ( 100 ) @ 7:43:00 AM 139 / 59 ( 86 ) @ 7:43:00 AM 137 / 78 ( 102 ) @ 7:56:00 AM 122 / 80 ( 98 ) @ 8:04:00 AM 126 / 77 ( 97 ) @ 8:08:00 AM LV : 136 / 8 / 23 @ 7:43:00 AM 137 / 7 / 23 @ 7:43:00 AM Valves Phase:DefaultPhase AV : 0.0 @ 8:18:44 AM 0.0 @ 8:18:44 AM AV Mean Gradient: 0.0 @ 8:18:44 AM 0.0 @ 8:18:44 AM Clinical Evaluation EBL: 5mL-10mL Procedural Details Procedure Consent Obtained. Admit Source: Out Patient. Pre-Procedure Time Out. Identified patient by full name and date of as verbalized by the patient/guarantor. Does the consent match the physician's order: Yes. Accurate & Complete Informed Consent: Yes. Inpatient/Outpatient History & Physical on Chart: Yes. If H&P is completed, is and addenduem needed: Yes; If yes, is the addendum complete: Yes. Visualize and Verify Site with Patient/Guarantor: N/A. Relevant Radiology Images available: N/A. Pre-op teaching completed and patient verbalized understanding. The risks, benefits, and alternatives of sedation and/or procedure were discussed by physician. The patient agrees to continue. Procedure started. [facility] Clinical Fraility Score: 3: Managing Well. Security Operations Analyst Indications: Worsening Angina. Chest Pain Symptom Assessment: Typical Angina Symptoms. Cardiovascular Instability: Yes, if yes, Persistant Ischemic Symptoms. Correct patient, site and procedure confirmed by cath team. Current diagnosis: Chest Pain. PERRLA. Strong, equal hand tools administrator bilaterally. Lungs clear x 5 lobes. IV Site on Arrival: 20 gauge in the left forearm. IV Fluids: 0.9% NaCl at KVO. 0 mL infused prior to photographic laboratory supervisor. Pre Procedural Pulses: right radial was 3+. Pre Procedural Pulses: bilateral dorsalis pedis was 2+. Oxygen started at 2liters/min via nasal canula. right groin was prepped with chloroprep then draped in the usual sterile fashion. right radial was prepped with chloroprep then draped in the usual sterile fashion. Baseline sample Acquired. HR: 82 BPM. Physician notified. Physician arrived. Physician scrubbed in. Immediate Pre-Procedure Time Out. Correct Patient: Yes; Correct Procedure: Yes; Correct Site: Yes; Correct Patient Position: Yes; Correct Supplies: Yes; Dried Flammable Prep: Yes; Blood Products Available: N/A;. Lidocaine 1% infiltrated to the right radial. Arterial access obtained. A 5 omani Ray catheter in over exchange wire. Multiple views taken of left coronary artery. Catheter redirected to the RCA. Catheter removed over the exchange wire. A 5 omani JR4 catheter in over wire. EDP Sample taken: LV 136/8,23; HR: 77 BPM; SpO2: 100%. Pullback taken: LV 137/7,23; AO 138/107(100); Mean: 0mmHg, Peak to Peak: 0mmHg, SEP: 17sec/min; HR: 75 BPM; SpO2: 100%. Catheter advanced across the LV. Catheter out. Side port of sheath flushed periodically to maintain patency. Dr Figueredo arrived to reivew films. Dr. Figueredo scrubbed in to perform intervention. 6 omani JR 4 guide catheter was inserted over the wire. Runthrough guidewire was advanced through the guide catheter to lesion in the PLV. Balloon inserted to lesion in the PLV. Inflation number : 1 A AB TREK 2.25X12 RX BALLOON was prepped and advanced across the PLV , then inflated to 6 JANELLE for 0:16 seconds. Inflation number: 2 The AB TREK 2.25X12 RX BALLOON was reinflated across the PLV, to 6 JANELLE for 0:11 seconds. Inflation number: 3 The AB TREK 2.25X12 RX BALLOON was reinflated across the PLV, to 8 JANELLE for 0:16 seconds. Inflation number: 4 The AB TREK 2.25X12 RX BALLOON was reinflated across the PLV, to 12 JANELLE for 0:15 seconds. Balloon out. Results checked. Balloon inserted to lesion in the mid RCA. Inflation number : 1 A MDT NC EUPHORA RX 3.54I35KR BALLOON was prepped and advanced across the Mid RCA , then inflated to 16 JANELLE for 0:24 seconds. Inflation number: 2 The MDT NC EUPHORA RX 3.15X46ZP BALLOON was reinflated across the Mid RCA, to 16 JANELLE for 0:12 seconds. Results checked. Balloon out. Results checked. Wire out. Results checked. ACT drawn. Results 351 seconds. Therapeutic limits - pre-heparin administration 90-150 seconds and monitoring heparin during a vascular procedure >250 seconds. Guide catheter out. Physician scrubbed out. A TR Band was successful obtaining hemostatsis at the Right Radial artery insertion site. Post Procedure: Pulses reassessed and unchanged. PERRLA. Strong, equal hand tools administrator bilaterally. No VTE prophylaxis required. Medication's Wasted: Other = Fentanyl 50 mcg. Medication's Wasted: Nitro = 49.9 mg. Medication's Wasted: Lidocaine 1% = 3 mL. Total IV fluids: 300 mL. Post-op diagnosis: Severe ISR of Mid RCA S/P successful balloon angioplasty, Severe PLV stenosis S/P successful ballon angioplasty. Complications: none. Estimated blood loss: 5mL-10mL. Responsiveness - Normal response to verbal stimuli; alert and oriented, PERRLA. Airway - Unaffected, no intervention required; spontaneous ventilation. Circulation: W/N/L, pulses unchanged. Nausea/Vomiting: No. Procedure completed. Patient transferred by wheelchair to CPRU. Vital chart was stopped. Access Site Site: Right Radial artery Sheath Size: 6 Fr Hemostasis Method: TR Band Hemostasis Success: Successful Procedure Medications Start: 7:21 AM Stop: 7:21 AM Medication: Fentanyl Amount: 25 mcg Route: I.V. Start: 7:24 AM Stop: 7:24 AM Medication: Versed Amount: 1 mg Route: I.V. Start: 7:29 AM Stop: 7:29 AM Medication: Verapamil Amount: 5 mg Route: I.A. Start: 7:29 AM Stop: 7:29 AM Medication: Nitrogylcerin Amount: 100 mcg Route: I.A. Start: 7:30 AM Stop: 7:30 AM Medication: 0.9% Saline Amount: 250 ml Route: I.V. bolus Start: 7:35 AM Stop: 7:35 AM Medication: Heparin Amount: 5000 units Route: I.V. Start: 7:36 AM Stop: 7:36 AM Medication: Versed Amount: 1 mg Route: I.V. Start: 7:43 AM Stop: 7:43 AM Medication: Fentanyl Amount: 25 mcg Route: I.V. Start: 7:56 AM Stop: 7:56 AM Medication: Heparin Amount: 1000 units Route: I.V. Start: 8:15 AM Stop: 8:15 AM Medication: Plavix Amount: 600 mg Route: P.O. I, the attending physician, have reviewed and verified all procedure medications. Yes, all medications given per verbal order History/Risk Factors Hypertension: Yes Dyslipidemia: Yes Peripheral Arterial Disease (PAD): No Myocardial Infarction (NH): No Obesity: No Renal Disease: No Tobacco Use: Current/Recent(w/in 1 year) Prior Interventions PCI: Yes CABG: No Valve Surgery: No Report Signatures Interventional Workflow Finalized by Andrea Figueredo MD on 07/04/2023 11:58 AM Diagnostic Workflow Finalized by Dr Robert Bowen MD [facility] on 06/30/2023 08:21 AM
[2023-06-29] MEDS: diphenhydrAMINE 50 mg Capsule PO (06:15)
[2023-06-29 06:17] LABS: Basophils # 0.1 10^3/uL (0.0-0.1); Basophils % 0.4 %; Eosinophils # 1.1 10^3/uL (0.0-0.8); Eosinophils % 8.2 %; Hematocrit 38.5 % (36-47); Lymphocytes # 1.8 10^3/uL (0.8-4.8); Lymphocytes % 13.2 %; Mean Corpuscular HGB Conc 33.2 g/dL (30-55); Mean Corpuscular Hemoglobin 32.7 pg (27-33); Mean Corpuscular Volume 98.5 fl (85-98); Mean Platelet Volume 8.8 fL (7.4-10.4); Monocytes # 0.8 10^3/uL (0.2-0.9); Neutrophils # 9.84 10^3/uL (1.8-7.7); Neutrophils % 71.3 %; Nucleated Red Blood Cells % 0 %; Platelet Count 745 10^3/cmm (157-399); Red Blood Count 3.91 10^6/uL (3.85-5.65); White Blood Count 13.82 10^3/uL (3.29-11.43)
[2023-06-29 06:35] LABS: Anion Gap 16.9 (5-19); Blood Urea Nitrogen 8 mg/dL (6-20); Calcium 9.4 mg/dL (8.5-10.5); Carbon Dioxide 26 mmol/L (22-29); Chloride 100 mmol/L (98-107); Glomerular Filtration Rate 102.3 mL/min (90-130); Glucose 93 mg/dL (65-115); Osmolality Calculated 286 mOsm/kg (285-295); Potassium 3.9 mmol/L (3.5-5.1); Sodium 139 mmol/L (136-145)
--- NOTE | 2023-06-29 07:08 | PM.HP ---
Providers/Chief Complaint Admitting Physician: JEREMIAS Bowen MD Primary Care Provider: Duglas Spencer MD Chief Complaint: R94.39 History of Present Illness Tomeka Morrison is a 58 year old female with a history of atherosclerotic heart diseas, status post PCI with multiple stents in the right coronary artery, presents with complaints of chest pain. She had a Myocardial perfusion imaging in April which revealed a moderate area of reversible defect in the distribution of the left circumflex artery. Her LV ejection fraction was normal. Patient is known to have high blood pressure, dyslipidemia, COPD, GERD and diverticulitis. In view of her recurrent episodes of ongoing chest symptoms, in order to further evaluate her coronary status, a cardiac catheterization was recommended. She denies any fever or chills. No cough. She has some symptoms of ulcerative colitis. Her most recent coronary angiogram was done in 2015 and was found to have a total occlusion of the right coronary artery with a fairly good collaterals. She also was found to have a 60 to 70% lesion in the left anterior descending artery. Review of Systems Narrative: CONSTITUTIONAL: No fever or chills. EYES: No blurring of vision or other visual disturbances lately. ENT: No hoarseness of voice, auditory disturbances or sore throat. CARDIOVASCULAR: As mentioned above. RESPIRATORY: History of COPD GASTROINTESTINAL: History of ulcerative colitis and irritable bowel syndrome. GENITOURINARY: No dysuria or hematuria. INTEGUMENTARY: No skin rashes or history of skin cancer. NEURO: No transient ischemic attacks or amaurosis. PSYCHIATRIC: No history of psychosis or major depression. HEMATOLOGIC: No bleeding disorders or significant anemia. ENDOCRINE: No history of polyuria or polydipsia. MUSCULOSKELETAL: No recent joint pain or swelling. ALLERGY/IMMUNOLOGY: As mentioned above. Medications/Allergies Home Medications Medication Instructions Recorded Confirmed Last Taken Type aspirin 81 mg tablet,delayed 81 mg PO DAILY circulation #90 tabs 06/26/21 06/28/23 06/29/23 03:30 Rx release (Adult Aspirin Regimen) nebulizers #1 ea 06/30/21 06/28/23 07/09/21 Rx lisinopril 40 mg tablet 40 mg PO DAILY #90 tabs 12/16/22 06/29/23 06/29/23 03:30 Rx metoprolol tartrate 25 mg tablet 25 mg PO BID #180 tabs 01/15/23 06/28/2324 05:20 Rx pantoprazole 40 mg granules 40 mg PO BID acid reflux #60 ea 02/03/23 06/28/23 06/29/23 05:20 Rx delayed-release for susp in packet trazodone 100 mg tablet 100 mg PO DAILY PRN insomnia 30 02/03/23 06/28/23 Unknown Rx days #30 tabs nitroglycerin 0.4 mg sublingual 0.4 mg sublingual Q5M PRN chest 03/16/23 06/28/23 Unknown Rx tablet pain #50 tabs isosorbide mononitrate 30 mg 30 mg PO DAILY #30 tabs 04/22/23 06/28/23 06/29/23 05:20 Rx tablet,extended release 24 hr amlodipine 2.5 mg tablet 2.5 mg PO DAILY #30 tabs 06/04/23 06/28/23 06/29/23 05:20 Rx albuterol sulfate 90 mcg/actuation 2 puff inhalation Q6H PRN 06/17/23 06/28/23 Unknown Rx aerosol inhaler (ProAir HFA) shortness of breath or wheezing #8.5 grams atorvastatin 40 mg tablet 40 mg PO DAILY cholesterol 06/17/23 06/28/23 06/29/23 03:30 Rx medication #30 tabs dicyclomine 20 mg tablet 20 mg PO QID PRN abdominal 06/17/23 06/29/23 06/29/23 05:20 Rx discomfort #120 tabs ipratropium 0.5 mg-albuterol 3 mg 3 ml inhalation Q8H PRN shortness 06/17/23 06/28/23 Unknown Rx (2.5 mg base)/3 mL nebulization of breath or wheezing #180 mL soln ipratropium bromide 17 1 puff inhalation QID PRN 06/17/23 06/28/23 Unknown Rx mcg/actuation HFA aerosol inhaler shortness of breath or wheezing (Atrovent HFA) #12.9 grams Allergies Allergy/AdvReac Type Severity Reaction Status Date / Time No Known Allergies Allergy Verified 06/28/23 12:19 PFSH Acute PFSH: Medical History Elevated blood pressure reading with diagnosis of hypertension Hematochezia Lumbar stenosis with neurogenic claudication Abdominal cramping MDD (major depressive disorder), recurrent severe, without psychosis Chronic intestinal ischemic syndrome smoker Alcohol abuse Allergic rhinitis due to allergen Hyperlipidemia COPD (chronic obstructive pulmonary disease) CAD, multiple vessel 09/23/2015 3 stents placed Empyema IBS (irritable bowel syndrome) GERD (gastroesophageal reflux disease) Smoker Surgical History H/O section x2 History of lung surgery right History of PTCA History of colonoscopy Dr Poe EGD-Colon 02/2022 History of esophagogastroduodenoscopy 02/2022 Dr. Poe History of lumpectomy of left breast Family History Father CAD (coronary artery disease) Hypertension Heart disease Mother CAD (coronary artery disease) massive [place] at 65 - Hypertension Grandmother Dementia Brother Heart disease Denies family history of Colon cancer Ovarian cancer Diabetes Clotting disorder Hyperlipidemia Chronic kidney disease (CKD) Breast cancer Suicide Anesthesia complication Bleeding disorder Lung disease Cancer Uterine cancer Thyroid disease Stroke Social History Smoking and tobacco/nicotine status: current every day tobacco/nicotine user Substance/Drug Use: never Vitals/I&O/Wt Last Vital Signs Temp 98.0 F 06/29/23 06:20 Pulse 98 06/29/23 06:20 Resp 17 06/29/23 06:20 BP 125/89 06/29/23 06:20 Pulse Ox 99 06/29/23 06:20 O2 Del Method Room Air 06/29/23 06:20 Weight last 48 hrs Weight 128 lb Physical Exam Narrative: GENERAL: The patient is alert and oriented times three. Not in any acute distress. HEENT: No significant pallor, icterus or lymphadenopathy.Oral cavity: There are no mucous membrane lesions. NECK: Trachea appears to be central. No masses noted. No JVD or thyromegaly appreciated. RESPIRATORY: Chest is symmetrical. No intercostals muscle retraction or any accessory muscle activation. There is no chest wall tenderness. Breath sounds are heard bilaterally. No rales or rhonchi heard. No evidence of any consolidation. BREASTS: Deferred. HEART: The heart sounds are normal. No S3 or S4. No significant murmurs. No pericardial rub ABDOMEN: No vessel pulsations or distention. No tenderness. No organomegaly appreciated. Bowel sounds are normally heard. : Deferred. RECTAL: Deferred. LYMPHATIC: No lymphadenopathy noted in the neck. EXTREMITIES: No edema or cyanosis. No clubbing. MUSCULOSKELETAL: No acute joint deformities or swelling SKIN: There are no significant rashes or ecchymosis NEUROPSYCHIATRIC: The patient is alert and oriented x3. Appears to be in a good mood. No tremors or rigidity noted. Data 06/29/23 06:07 06/29/23 06:07 Other Labs: Laboratory Last Values WBC 13.82 10^3/uL (3.29-11.43) H 06/29/23 06:07 RBC 3.91 10^6/uL (3.85-5.65) 06/29/23 06:07 Hgb 12.80 g/dL (11.27-16.99) 06/29/23 06:07 Hct 38.5 % (36-47) 06/29/23 06:07 MCV 98.5 fl (85-98) H 06/29/23 06:07 MCH 32.7 pg (27-33) 06/29/23 06:07 MCHC 33.2 g/dL (30-55) 06/29/23 06:07 RDW 18.0 % (12.1-15.1) H 06/29/23 06:07 Plt Count 745 10^3/cmm (157-399) H 06/29/23 06:07 MPV 8.8 fL (7.4-10.4) 06/29/23 06:07 Neut % (Auto) 71.3 % 06/29/23 06:07 Lymph % (Auto) 13.2 % 06/29/23 06:07 [place] % (Auto) 6.0 % 06/29/23 06:07 Eos % (Auto) 8.2 % 06/29/23 06:07 Baso % (Auto) 0.4 % 06/29/23 06:07 Neut # (Auto) 9.84 10^3/uL (1.8-7.7) H 06/29/23 06:07 Lymph # (Auto) 1.8 10^3/uL (0.8-4.8) 06/29/23 06:07 [place] # (Auto) 0.8 10^3/uL (0.2-0.9) 06/29/23 06:07 Eos # (Auto) 1.1 10^3/uL (0.0-0.8) H 06/29/23 06:07 Baso # (Auto) 0.1 10^3/uL (0.0-0.1) 06/29/23 06:07 Nucleated RBC % (auto) 0 % 06/29/23 06:07 Nucleated RBCs # 0.0 /100WBC 06/29/23 06:07 Sodium 139 mmol/L (136-145) 06/29/23 06:07 Potassium 3.9 mmol/L (3.5-5.1) 06/29/23 06:07 Chloride 100 mmol/L (98-107) 06/29/23 06:07 Carbon Dioxide 26 mmol/L (22-29) 06/29/23 06:07 Anion Gap 16.9 (5-19) 06/29/23 06:07 BUN 8 mg/dL (6-20) 06/29/23 06:07 Creatinine 0.6 mg/dL (0.5-0.9) 06/29/23 06:07 GFR Calculation 102.3 mL/min (90-130) 06/29/23 06:07 Glucose 93 mg/dL (65-115) 06/29/23 06:07 Calculated Osmolality 286 mOsm/kg (285-295) 06/29/23 06:07 Calcium 9.4 mg/dL (8.5-10.5) 06/29/23 06:07 Other data: Echocardiogram on 05/05/2023 Normal left ventricular size and systolic function, EF 63 %. Mild to moderate left ventricular hypertrophy. No regional wall motion abnormalities. Grade III/IV diastolic dysfunction (restrictive filling pattern), severely elevated filling pressures. Mildly increased left atrial size. Mild mitral valve regurgitation. Thickened mitral valve. There is no pericardial effusion. There are no intracardiac masses. No similar previous studies are available for comparison Myocardial perfusion imaging ordered 04/16/2023 1. Myocardial perfusion imaging revealing moderate area of reversible defect involving the inferolateral knee and anterolateral region, suggestive of ischemia in the distribution of the left circumflex artery. 2. Normal LV ejection fraction of 67%. 3. LV wall motion analysis revealing no gross wall motion abnormalities. 4. Normal LV volume No similar previous studies are available for comparison A&P Assessment and plan (1) Atherosclerotic heart disease of [place] coronary artery with other forms of angina pectoris: In view of the patient's ongoing symptoms, abnormal Myocardial perfusion imaging and multiple risk factors, in order to further evaluate the coronary status, a repeat cardiac realization would be appropriate. The risk of bleeding, hematoma, vascular injury, myocardial infarction, myocardial perforation, malignant cardiac arrhythmias ,CVA, renal failure and other concomitant complications were explained in detail. Patient understood this well and consented to proceed. (2) Elevated blood pressure reading with diagnosis of hypertension: Currently normotensive. Will continue on the current medication. (3) Hyperlipidemia: May continue on the current medications. Qualifiers: Hyperlipidemia type: mixed hyperlipidemia Qualified Code(s): E78.2 - Mixed hyperlipidemia (4) Smoker: Once again patient is strongly advised to quit smoking (5) IBS (irritable bowel syndrome): Patient has been having a abdominal pain lately. No hematemesis or melena. Qualifiers: Irritable bowel syndrome type: unspecified Qualified Code(s): K58.9 - Irritable bowel syndrome without diarrhea (6) Diverticulosis large intestine w/o perforation or abscess w/bleeding: This might be causing the elevated white cell count and the platelet count. Symptoms are stable. Plan Based on the angiogram findings, further management decisions will be made. She will be kept on the current medication for the time being. Her labs from this morning was reviewed. She has an elevated white cell count of 13.82 thousand most likely from the ulcerative colitis. She also has an elevated platelet count. These were discussed with the patient. Attestations Medical Necessity Statement*: Patient may require a midnight stay for further management of her condition. Coding Level of Care Code Acute Code for [facility] Diagnoses Atherosclerotic heart disease of [place] coronary artery with other forms of angina pectoris I25.118 Elevated blood pressure reading with diagnosis of hypertension I10 Mixed hyperlipidemia E78.2 Hyperlipidemia type: mixed hyperlipidemia Smoker F17.200 Irritable bowel syndrome, unspecified type K58.9 Irritable bowel syndrome type: unspecified Diverticulosis large intestine w/o perforation or abscess w/bleeding K57.31
--- NOTE | 2023-06-29 07:15 | W.PM.OPSUD ---
Surgery/Procedure H&P Update DATE OF PROCEDURE: June 29, 2023 DATE H&P PERFORMED: 06/29/23 H&P UPDATE INFORMATION: I have reviewed H&P completed within last 30 days, I have examined patient prior to procedure and No changes to prior documentation PREOP DIAGNOSIS: Atherosclerotic heart disease PRIMARY INDICATION FOR PROCEDURE: Ongoing chest pain, abnormal Myocardial perfusion imaging, multiple PCI's. PLANNED PROCEDURE: Operation Date: 06/29/23 07:00 Proposed Procedures p [facility] [id number],R07.9,R07.9,R94.39(Left) - Robert Bowen MD PATIENT REASSESSED PRIOR TO SEDATION, WITH NO CHANGE NOTED: Yes PHYSICAL EXAM: alert, oriented x 3, clear to auscultation bilaterally and regular rate & rhythm AIRWAY EVAL/ANESTHESIA PLAN: normal airway, see other exam findings, ASA III, Monitored Anesthesia, Local Anesthesia, Risks, benefits & alternatives of sedation and/or procedure discussed and Patient agrees to continue as planned
[2023-06-29] MEDS: atorvastatin 40 mg Tablet PO (09:39)
[2023-06-29] MEDS: pantoprazole DR 40 mg Tablet PO ×2 (09:39→17:37)
[2023-06-29] MEDS: dicyclomine 20 mg Tablet PO ×3 (09:39→20:53)
--- NOTE | 2023-06-29 10:07 | PC.NURSE ---
Patient did not want to take her morning medications: Amlodipine, Lisinopril, metoprolol, aspirin, and Isosorbide, that were on her MAR because she took them this morning at home prior to coming into cath lab radiology technician.
--- NOTE | 2023-06-29 14:57 | PC.NURSE ---
Patient presented to [facility] from [facility] with a right radial TR-band. Air is removed from the TR-band as follows: 1ml at 1045, 2ml's at 1110, 2ml's at 1130, 2ml's at 1200, 2ml's at 1220, 2ml's 1330, 2ml's at 1400. TR-band is removed at 1445 and a 2 x 2 and occusive dressing is applied. No hematoma is noted. Patient tolerated well.
--- NOTE | 2023-06-29 16:33 | PC.NURSE ---
Dr Bowen is notified that patient is having abdominal pain from her diverticulitis. She normally will take a Tylenol and Ibuprofen together if the pain get moderate to severe. Dr Bowen ordered for Tylenol 325mg and Ibuprofen 400mg Q6H PRN abdominal pain. Orders entered.
[2023-06-29] MEDS: ibuprofen 200 mg Tablet 400 MG PO ×2 (16:41→20:53)
[2023-06-29] MEDS: acetaminophen 325 mg Tablet PO ×2 (16:41→20:53)
[2023-06-29] MEDS: metoprolol tartrate 25 mg Tablet PO (17:38)
[2023-06-29] MEDS: trazodone 100 mg Tablet PO (20:53)
[2023-06-30 02:08] VITALS: BP 140/79; PULSE 83; RESP 20; O2SAT 94
[2023-06-30] MEDS: dicyclomine 20 mg Tablet PO ×2 (04:01→09:10)
[2023-06-30] MEDS: ibuprofen 200 mg Tablet 400 MG PO ×2 (04:02→09:10)
[2023-06-30 06:00] VITALS: PULSE 79
[2023-06-30 06:13] VITALS: BP 152/67; PULSE 73; RESP 18; TEMP 36.6; O2SAT 96
[2023-06-30] MEDS: pantoprazole DR 40 mg Tablet PO (06:32)
[2023-06-30] MEDS: lisinopril 20 mg Tablet 40 MG PO (06:32)
[2023-06-30] MEDS: aspirin 81 mg EC Tablet PO (06:32)
[2023-06-30] MEDS: clopidogrel 75 mg Tablet PO (09:03)
[2023-06-30] MEDS: isosorbide mononitrate ER 30 mg Tablet PO (09:03)
[2023-06-30] MEDS: amlodipine 5 mg Tablet 2.5 MG PO (09:03)
[2023-06-30] MEDS: metoprolol tartrate 25 mg Tablet PO (09:03)
[2023-06-30 09:14] VITALS: BP 131/60; PULSE 96; TEMP 36.6
--- NOTE | 2023-06-30 09:49 | P.PN_ITS ---
Subjective 2 Subjective: Patient is admitted to hospital following the coronary intervention for close monitoring and management. Patient underwent cardiac realization followed by PCI of the right coronary artery lesions. Post procedure course was uneventful. She did not have any hematoma bleeding from the radial arterial puncture site. The vital signs remained stable. Has not had any recurrence of chest pain. She had some stomach issues because of the ulcerative colitis. Currently her symptoms are much better. Medications: Medication Review Details: Current Medications Acetaminophen (Acetaminophen 325 Mg Tablet) 325 mg PO Q6H PRN PRN Reason: MILD PAIN Last Admin: 06/29/23 20:53 Dose: 325 mg Albuterol/Ipratropium (Ipratropium-Albuterol 3 Ml Neb) 3 ml INHALATION Q8H PRN PRN Reason: shortness of breath or wheezing Amlodipine Besylate (Amlodipine 5 Mg Tablet) 2.5 mg PO DAILY [facility] Last Admin: 06/30/23 09:03 Dose: 2.5 mg Aspirin (Aspirin 81 Mg Ec Tablet) 81 mg PO DAILY [facility] Last Admin: 06/30/23 06:32 Dose: 81 mg Atorvastatin Calcium (Atorvastatin 40 Mg Tablet) 40 mg PO DAILY [facility] Last Admin: 06/30/23 09:04 Dose: Not Given Clopidogrel Bisulfate (Clopidogrel 75 Mg Tablet) 75 mg PO DAILY [facility] Last Admin: 06/30/23 09:03 Dose: 75 mg Dicyclomine HCl (Dicyclomine 20 Mg Tablet) 20 mg PO QID PRN PRN Reason: abdominal discomfort Last Admin: 06/30/23 09:10 Dose: 20 mg Ibuprofen (Ibuprofen 200 Mg Tablet) 400 mg PO Q6H PRN PRN Reason: MODERATE PAIN Last Admin: 06/30/23 09:10 Dose: 400 mg Isosorbide Mononitrate (Isosorbide Mononitrate Er 30 Mg Tablet) 30 mg PO DAILY [facility] Last Admin: 06/30/23 09:03 Dose: 30 mg Lisinopril (Lisinopril 20 Mg Tablet) 40 mg PO DAILY [facility] Last Admin: 06/30/23 06:32 Dose: 40 mg Metoprolol Tartrate (Metoprolol Tartrate 25 Mg Tablet) 25 mg PO BID [facility] Last Admin: 06/30/23 09:03 Dose: 25 mg Nitroglycerin (Nitroglycerin 0.4 Mg Sublingual Tablet) 0.4 mg SUBLINGUAL Q5M PRN PRN Reason: chest pain Pantoprazole Sodium (Pantoprazole Dr 40 Mg Tablet) 40 mg PO BID [facility] Last Admin: 06/30/23 06:32 Dose: 40 mg Trazodone HCl (Trazodone 100 Mg Tablet) 100 mg PO DAILY PRN PRN Reason: insomnia Last Admin: 06/29/23 20:53 Dose: 100 mg Vitals/I&O/Wt Last Vital Signs Temp 97.9 F 06/30/23 09:14 Pulse 96 06/30/23 09:14 Resp 18 06/30/23 06:13 BP 131/60 06/30/23 09:14 Pulse Ox 96 06/30/23 06:13 O2 Del Method Room Air 06/29/23 16:15 Weight last 48 hrs Weight 128 lb Physical Exam 2 Narrative: GENERAL: The patient is alert and oriented times three. Not in any acute distress. HEENT: No significant pallor, icterus or lymphadenopathy.Oral cavity: There are no mucous membrane lesions. NECK: Trachea appears to be central. No masses noted. No JVD or thyromegaly appreciated. RESPIRATORY: Chest is symmetrical. No intercostals muscle retraction or any accessory muscle activation. There is no chest wall tenderness. Breath sounds are heard bilaterally. No rales or rhonchi heard. No evidence of any consolidation. BREASTS: Deferred. HEART: The heart sounds are normal. No S3 or S4. No significant murmurs. No pericardial rub ABDOMEN: No vessel pulsations or distention. No tenderness. No organomegaly appreciated. Bowel sounds are normally heard. : Deferred. RECTAL: Deferred. LYMPHATIC: No lymphadenopathy noted in the neck. EXTREMITIES: No hematoma at the radial arterial puncture site. Good radial pulse. MUSCULOSKELETAL: No acute joint deformities or swelling SKIN: There are no significant rashes or ecchymosis NEUROPSYCHIATRIC: The patient is alert and oriented x3. Appears to be in a good mood. No tremors or rigidity noted. Data 06/29/23 06:07 06/29/23 06:07 A&P Assessment and plan (1) Atherosclerotic heart disease of [place] coronary artery with other forms of angina pectoris: Patient went cardiac colorization yesterday. She was found to have high-grade lesions in the right coronary artery as mentioned before. She had a mild to moderate diffuse disease in the other vessels. LVEDP was 23 mmHg. She underwent PCI of the RCA lesions. Currently remaining stable. (2) Elevated blood pressure reading with diagnosis of hypertension: Currently normotensive. Will continue on the current medication. (3) Hyperlipidemia: May continue on the current medications. Qualifiers: Hyperlipidemia type: mixed hyperlipidemia Qualified Code(s): E78.2 - Mixed hyperlipidemia (4) Smoker: Once again patient is strongly advised to quit smoking (5) IBS (irritable bowel syndrome): Patient has been having a abdominal pain lately. No hematemesis or melena. Qualifiers: Irritable bowel syndrome type: unspecified Qualified Code(s): K58.9 - Irritable bowel syndrome without diarrhea (6) Diverticulosis large intestine w/o perforation or abscess w/bleeding: This might be causing the elevated white cell count and the platelet count. Symptoms are stable. Plan Patient advised to continue taking the Plavix. [facility] will [facility]. Patient will be seen byme as scheduled Patient is advised to continue the medications as mentioned above. The importance of compliance to diet, medications and exercise were discussed. In the event of the patient developing chest pain ,unusual palpitations or any new symptoms, is advised to contact me or come to the hospital. Attestations 2 Medical Necessity Statement*: Discharge home today Coding Level of Care Code 60897 Diagnoses Atherosclerotic heart disease of [place] coronary artery with other forms of angina pectoris I25.118 Elevated blood pressure reading with diagnosis of hypertension I10 Mixed hyperlipidemia E78.2 Hyperlipidemia type: mixed hyperlipidemia Smoker F17.200 Irritable bowel syndrome, unspecified type K58.9 Irritable bowel syndrome type: unspecified Diverticulosis large intestine w/o perforation or abscess w/bleeding K57.31
--- NOTE | 2023-06-30 09:53 | PC.NURSE ---
pt stated she has chronic abdominal cramps and pains and takes bentyl with ibuprofen.
[2023-06-30 10:20] LABS: Anion Gap 9.5 (5-19); Blood Urea Nitrogen 7 mg/dL (6-20); Calcium 8.4 mg/dL (8.5-10.5); Carbon Dioxide 25 mmol/L (22-29); Chloride 103 mmol/L (98-107); Glomerular Filtration Rate 126.3 mL/min (90-130); Glucose 138 mg/dL (65-115); Osmolality Calculated 278 mOsm/kg (285-295); Potassium 3.5 mmol/L (3.5-5.1); Sodium 134 mmol/L (136-145)
[2023-06-30 11:40] VITALS: BP 103/61; PULSE 69; RESP 16; TEMP 36.6; O2SAT 96
== END 2023-06-30 11:41 | disposition home or self-care (01) ==
LOC: CCL 05:51 → CSU 09:04
PROVIDERS: Internal Medicine; PCP Family Medicine Adult Medicine; Visit Provider Internal Medicine Cardiovascular Disease
DX: I25.118 Atherosclerotic heart disease of native coronary artery with other forms of angina pectoris (principal); I10 Essential (primary) hypertension; E78.2 Mixed hyperlipidemia; F17.200 Nicotine dependence, unspecified, uncomplicated; K58.9 Irritable bowel syndrome, unspecified; K57.31 Diverticulosis of large intestine without perforation or abscess with bleeding; Z95.5 Presence of coronary angioplasty implant and graft; J44.9 Chronic obstructive pulmonary disease, unspecified; Z79.82 Long term (current) use of aspirin
CPT/HCPCS: 36415; 80048; 85025; 85347; 92920; 93458; 96365; 96367; 96376; 99152; 99153; C1725; C1769; C1887; C1894; J1644; J2250; J3010; J3490; J7030; Q0163; Q9967

== ENCOUNTER → 2023-07-05 10:14 | Outpatient (BNVA) | payer MEDICAID, SELFPAY | PROVIDERS: PCP Family Medicine Adult Medicine; Visit Provider Internal Medicine Cardiovascular Disease | DX: I25.118 Atherosclerotic heart disease of native coronary artery with other forms of angina pectoris (principal); I10 Essential (primary) hypertension; E78.2 Mixed hyperlipidemia; F17.200 Nicotine dependence, unspecified, uncomplicated | CPT/HCPCS: 36415; 80048; 80061; 99213 ==

== ENCOUNTER 2023-07-29 09:35 | Emergency (ER) | payer MEDICAID, SELFPAY ==
[2023-07-29] VITALS (8 sets, daily range): BP systolic 98–121; BP diastolic 61–87; PULSE 81–102; RESP 17–18; TEMP 36.7; O2SAT 93–98; BMI 21.1
[2023-07-29] MEDS: ondansetron 2 mg/ML SDV 2 mL 4 MG IVP (11:16)
[2023-07-29] MEDS: sodium chloride 0.9% 1,000 ML 999 ML IV (11:16)
[2023-07-29 11:35] LABS: Basophils # 0.1 10^3/uL (0.0-0.1); Basophils % 0.4 %; Eosinophils # 0.5 10^3/uL (0.0-0.8); Eosinophils % 3.7 %; Hematocrit 38.1 % (36-47); Lymphocytes # 1.5 10^3/uL (0.8-4.8); Lymphocytes % 10.8 %; Mean Corpuscular HGB Conc 33.1 g/dL (30-55); Mean Corpuscular Hemoglobin 31.1 pg (27-33); Mean Corpuscular Volume 94.1 fl (85-98); Mean Platelet Volume 8.5 fL (7.4-10.4); Monocytes # 0.8 10^3/uL (0.2-0.9); Monocytes % 5.5 %; Neutrophils # 10.69 10^3/uL (1.8-7.7); Neutrophils % 78.5 %; Nucleated Red Blood Cells % 0 %; Platelet Count 859 10^3/cmm (157-399); Red Blood Count 4.05 10^6/uL (3.85-5.65); Red Cell Distribution Width 16.2 % (12.1-15.1); White Blood Count 13.63 10^3/uL (3.29-11.43)
--- NOTE | 2023-07-29 11:46 | ED_ITS ---
HPI - Abdominal Pain 2 General: Chief Complaint: Abdominal Pain Stated Complaint: abd pain Time Seen by Provider: 07/29/23 10:39 History of Present Illness: Patient been having diffuse abdominal pain sometimes on her left sometimes on her right she has been having bloating cramping and tightness all for about the last 2 weeks. Patient says she does have a history of diverticulitis. She reports bloating and needing to pass gas but being unable to. Patient has good bowel sounds present patient is recently had 3 cardiac stents placed by Dr. Bowen. Review of Systems 2 General: Reports: 10 or more systems reviewed and unremarkable except in HPI and below PFSH ED 2 PFSH: Medical History Lumbar stenosis with neurogenic claudication Abdominal cramping Diverticulosis large intestine w/o perforation or abscess w/bleeding 07/10/2021 EGD gastritis duodenitis and hiatal hernia. Colonoscopy showed diverticulosis. Gastritis and duodenitis 07/10/2021 EGD gastritis duodenitis and hiatal hernia. Colonoscopy showed diverticulosis. 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 Poe History of lumpectomy of left breast Family History Father CAD (coronary artery disease) Hypertension Heart disease Mother CAD (coronary artery disease) massive [place] at 65 - Hypertension Grandmother Dementia Brother Heart disease Denies family history of Colon cancer Ovarian cancer Diabetes Clotting disorder Hyperlipidemia Chronic kidney disease (CKD) Breast cancer Suicide Anesthesia complication Bleeding disorder Lung disease Cancer Uterine cancer Thyroid disease Stroke Social History Smoking and tobacco/nicotine status: current every day tobacco/nicotine user Substance/Drug Use: never Physical Exam 2 Const: COMMON NORMALS: no acute distress, average body habitus, patient oriented x3, no limitations, healthy appearing, alert and well nourished HENMT: COMMON NORMALS: normocephalic, atraumatic, hearing grossly normal bilaterally, external ears normal, Normal external nose present, moist oral mucous membranes and oropharynx normal HEAD & SCALP: normocephalic and atraumatic NOSE: Normal external nose present EXTERNAL EAR: Yes external ears normal Neck/C-Spine: COMMON NORMALS: no JVD Chest: COMMONS NORMALS: normal inspection of the chest and normal palpation of entire chest wall Resp: COMMON NORMALS: normal respiratory effort, No retractions, No use of accessory muscles and clear to auscultation bilaterally AUSCULTATION: clear to auscultation bilaterally Cardio: COMMON NORMALS: no JVD, regular rate, regular rhythm, S1 normal heart sound present, S2 normal heart sound present, No gallops present (Cardio), No clicks present (Cardio) and No rub (Cardio) RATE: regular rate RHYTHM: r egular rhythm HEART SOUNDS: S1 normal heart sound present and S2 normal heart sound present GI: COMMON NORMALS: Normal to inspection, nondistended, normoactive bowel sounds present, Soft to palpation, No hepatosplenomegaly present and no masses; negative for non-tender (Mildly diffusely tender) PALPATION: Yes Soft to palpation and Yes No hepatosplenomegaly present Neuro: COMMON NORMALS: patient oriented x3 SENSORIUM/ORIENTATION: Yes alert Course 2 Vital Signs: Vital signs: Vital Signs Temperature 98.0 F 07/29/23 09:52 Pulse Rate 102 H 07/29/23 14:45 Respiratory Rate 18 07/29/23 11:32 Blood Pressure 113/74 07/29/23 14:45 Pulse Oximetry 96 07/29/23 14:45 Oxygen Delivery Me thod Room Air 07/29/23 14:30 MDM - Abdominal Pain Medical Decision Making Patient had blood work that included CBC CMP lipase. Patient's white count was elevated at 13.6 platelets 859, lipase is about 900, abdomen pelvis CT scan with contrast showed numerous masses most likely cystic involving head of the pancreas suggestive of acute or chronic pancreatitis also showed lung infiltrates and effusions. These results was discussed with the patient. Patient was given Toradol Zofran and fluid bolus was feeling much better. Patient be discharged home to follow-up with PCP and repeat CT scan of abdomen pelvis. Differential Diagnosis Likely abdominal pain; Unlikely acute appendicitis, calculus of kidney, constipation, diverticulitis, endometriosis, gastroenteritis, pancreatitis or small bowel obstruction Medical Records I reviewed the patient's medical records. Lab Data I reviewed the patient's lab results. 07/29/23 11:18 07/29/23 11:18 Labs/Radiology: Radiology Impressions Abdomen/Pelvis CT 07/29/23 12:21 IMPRESSION: 1. Numerous masses mostly cystic involving the head of the pancreas with pancreatic calcifications. There is biliary dilatation as well as pancreatic ductal dilatation. Edema and fluid surrounding the pancreas extending into the pelvis. Thickening of the proximal duodenum. These findings are possibly related to pancreatitis likely both acute and chronic with the fluid collections likely being pseudocysts and/or abscesses. However, extensive adenopathy as well as soft tissue density surrounding the upper mesenteric vessels could be indicative of a neoplastic process. 2. Thickening of the medial diaphragmatic crura bilaterally. This could be due to inflammatory changes in infection although neoplastic involvement cannot be excluded. 3. Lung infiltrates and effusions. Laboratory Results WBC 13.63 10^3/uL (3.29-11.43) H 07/29/23 11:18 RBC 4.05 10^6/uL (3.85-5.65) 07/29/23 11:18 Hgb 12.60 g/dL (11.27-16.99) 07/29/23 11:18 Hct 38.1 % (36-47) 07/29/23 11:18 MCV 94.1 fl (85-98) 07/29/23 11:18 MCH 31.1 pg (27-33) 07/29/23 11:18 MCHC 33.1 g/dL (30-55) 07/29/23 11:18 RDW 16.2 % (12.1-15.1) H 07/29/23 11:18 Plt Count 859 10^3/cmm (157-399) H 07/29/23 11:18 MPV 8.5 fL (7.4-10.4) 07/29/23 11:18 Neut % (Auto) 78.5 % 07/29/23 11:18 Lymph % (Auto) 10.8 % 07/29/23 11:18 Ocean % (Auto) 5.5 % 07/29/23 11:18 Eos % (Auto) 3.7 % 07/29/23 11:18 Baso % (Auto) 0.4 % 07/29/23 11:18 Neut # (Auto) 10.69 10^3/uL (1.8-7.7) H 07/29/23 11:18 Lymph # (Auto) 1.5 10^3/uL (0.8-4.8) 07/29/23 11:18 Ocean # (Auto) 0.8 10^3/uL (0.2-0.9) 07/29/23 11:18 Eos # (Auto) 0.5 10^3/uL (0.0-0.8) 07/29/23 11:18 Baso # (Auto) 0.1 10^3/uL (0.0-0.1) 07/29/23 11:18 Nucleated RBC % (auto) 0 % 07/29/23 11:18 Nucleated RBCs # 0.0 /100WBC 07/29/23 11:18 Sodium 135 mmol/L (136-145) L 07/29/23 11:18 Potassium 4.1 mmol/L (3.5-5.1) 07/29/23 11:18 Chloride 95 mmol/L (98-107) L 07/29/23 11:18 Carbon Dioxide 27 mmol/L (22-29) 07/29/23 11:18 Anion Gap 17.1 (5-19) 07/29/23 11:18 BUN 11 mg/dL (6-20) 07/29/23 11:18 Creatinine 0.5 mg/dL (0.5-0.9) 07/29/23 11:18 GFR Calculation 126.3 mL/min (90-130) 07/29/23 11:18 Glucose 102 mg/dL (65-115) 07/29/23 11:18 Calculated Osmolality 280 mOsm/kg (285-295) L 07/29/23 11:18 Calcium 8.7 mg/dL (8.5-10.5) 07/29/23 11:18 Magnesium 1.8 mg/dL (1.7-2.3) 07/29/23 11:18 Total Bilirubin 0.3 mg/dL (0.15-1.2) 07/29/23 11:18 AST 13 U/L (0-32) 07/29/23 11:18 ALT 9 U/L (0-33) 07/29/23 11:18 Alkaline Phosphatase 205 U/L (35-105) H 07/29/23 11:18 Total Protein 6.2 g/dL (6.6-8.7) L 07/29/23 11:18 Albumin 3.0 g/dL (3.5-5.2) L 07/29/23 11:18 Globulin 3.2 g/dL (1.3-4.6) 07/29/23 11:18 Lipase 965 U/L (13-60) H 07/29/23 11:18 Urine Color Yellow (Yellow) 07/29/23 12:17 Urine Appearance Sl hazy (CLEAR) A 07/29/23 12:17 Urine pH 7 (5-7) 07/29/23 12:17 Ur Specific Thurmond 1.005 (1.005-1.030) 07/29/23 12:17 Urine Protein Trace (Negative) 07/29/23 12:17 Urine Glucose (UA) Norm (Normal) 07/29/23 12:17 Urine Ketones 1+ (Negative) H 07/29/23 12:17 Urine Blood Neg (Negative) 07/29/23 12:17 Urine Nitrate Negative (Negative) 07/29/23 12:17 Urine Bilirubin Neg (Negative) 07/29/23 12:17 Urine Urobilinogen 1 mg/dL (Negative) H 07/29/23 12:17 Ur Leukocyte Esterase 1+ (Negative) H 07/29/23 12:17 Urine RBC None /hpf (0-2) 07/29/23 12:17 Urine WBC 0-4 /hpf (0-5) H 07/29/23 12:17 Ur Squamous Epith Cells 10-15 /hpf (0-5) H 07/29/23 12:17 Amorphous Sediment Not Reportable 07/29/23 12:17 Urine Bacteria None /hpf (NONE) 07/29/23 12:17 Urine Mucus None /hpf 07/29/23 12:17 All radiology interpretation(s) finalized by discharge Discharge Plan Discharge Patient Disposition: Home Clinical Impression: Acute on chronic pancreatitis Abdominal pain Qualifiers: Abdominal location: upper abdomen, unspecified Qualified Code(s): R10.10 - Upper abdominal pain, unspecified Condition: Stable Prescriptions: New hydrocodone-acetaminophen 5-325 mg tablet 1 tab PO Q6H PRN (Reason: pain) Qty: 14 0RF ondansetron HCl 4 mg tablet 4 mg PO Q8H PRN (Reason: nausea and vomiting) Qty: 14 0RF Bactrim DS 800-160 mg tablet 1 tab PO BID Qty: 14 0RF No Action nitroglycerin 0.4 mg tablet, sublingual 0.4 mg sublingual Q5M PRN (Reason: chest pain) Qty: 50 3RF Rx Instructions: do not exceed 3 doses per episode isosorbide mononitrate 30 mg tablet extended release 24 hr 30 mg PO DAILY Qty: 30 5RF (DME) nebulizers Misc See Rx Instructions .Route Qty: 1 0RF Rx Instructions: As directed, use every 4-6 hours, as needed. lisinopril 40 mg tablet 40 mg PO DAILY Qty: 90 3RF metoprolol tartrate 25 mg tablet 25 mg PO BID Qty: 180 3RF albuterol sulfate [ProAir HFA] 90 mcg/actuation HFA aerosol inhaler 2 puff inhalation Q6H PRN (Reason: shortness of breath or wheezing) Qty: 8.5 5RF dicyclomine 20 mg tablet 20 mg PO QID PRN (Reason: abdominal discomfort) Qty: 120 3RF Atrovent HFA 17 mcg/actuation HFA aerosol inhaler 1 puff inhalation QID PRN (Reason: shortness of breath or wheezing) Qty: 12.9 5RF ipratropium-albuterol 0.5 mg-3 mg(2.5 mg base)/3 mL solution for nebulization 3 ml inhalation Q8H PRN (Reason: shortness of breath or wheezing) Qty: 180 3RF prasugrel [Effient] 10 mg tablet 10 mg PO DAILY Qty: 30 0RF Rx Instructions: please let us know if insurance does not cover pantoprazole 40 mg tablet,delayed release (DR/EC) 40 mg PO BID atorvastatin 40 mg tablet 40 mg PO DAILY PRN (Reason: cholesterol medication) amlodipine 2.5 mg tablet 2.5 mg PO DAILY Adult Aspirin Regimen 81 mg tablet,delayed release (DR/EC) 81 mg PO QAM trazodone 100 mg tablet 100 mg PO BEDTIME PRN (Reason: insomnia) Discharge Orders: Discharge ED (Routine); Ordered 07/29/23 Ordered By: Rafael Buck Referrals: Duglas Spencer MD [Primary Care Provider] - 1 week Patient Instructions: Abdominal Pain (ED), Opioid Safety, Pain Management Activity Restrictions/Additional Instructions: Your lab work in ER revealed an elevated lipase suggestive of pancreatitis, your contrasted CT scan of the abdomen pelvis showed multiple cysts in calcifications in your pancreas suggestive for acute on chronic pancreatitis. Also showed your diaphragm is irritated and he may possibly have a little bit of pneumonia. It is suggested that once treatment for these is finished you have a repeat contrasted CT scan of your abdomen pelvis to make for sure this improves. Otherwise please follow-up with your family practitioner within the next 7 to 10 days for further evaluation and treatment. Coding Level of Care Code ED Basket Person for Chuyita Parsons
[2023-07-29 11:52] LABS: Alanine Aminotransferase 9 U/L (0-33); Alkaline Phosphatase 205 U/L (35-105); Anion Gap 17.1 (5-19); Aspartate Amino Transferase 13 U/L (0-32); Blood Urea Nitrogen 11 mg/dL (6-20); Calcium 8.7 mg/dL (8.5-10.5); Carbon Dioxide 27 mmol/L (22-29); Chloride 95 mmol/L (98-107); Creatinine Clr Calc Pharmacy 105.4491; Globulin 3.2 g/dL (1.3-4.6); Glomerular Filtration Rate 126.3 mL/min (90-130); Glucose 102 mg/dL (65-115); Magnesium 1.8 mg/dL (1.7-2.3); Osmolality Calculated 280 mOsm/kg (285-295); Potassium 4.1 mmol/L (3.5-5.1); Sodium 135 mmol/L (136-145); Total Bilirubin 0.3 mg/dL (0.15-1.2); Total Protein 6.2 g/dL (6.6-8.7)
[2023-07-29] MEDS: ketorolac 30 mg/mL INJ IVP (11:54)
[2023-07-29 11:59] LABS: Lipase 965 U/L (13-60)
--- NOTE | 2023-07-29 12:21 | CTR_ITS ---
PROCEDURE INFORMATION: Exam: CT Abdomen And Pelvis With Contrast Exam date and time: 07/29/2023 12:38 PM Age: 58 years old Clinical indication: Abdominal pain; Generalized; Prior surgery; Surgery date: 6+ months; Surgery type: C sections; Additional info: Abd pain, elevated lipase, HX diverticulitis TECHNIQUE: Imaging protocol: Computed tomography of the abdomen and pelvis with contrast. Radiation optimization: All CT scans at this facility use at least one of these dose optimization techniques: automated exposure control; mA and/or kV adjustment per patient size (includes targeted exams where dose is matched to clinical indication); or iterative reconstruction. Contrast material: OMNI 350; Contrast volume: 100 ml; Contrast route: INTRAVENOUS (IV); COMPARISON: CT abdomen pelvis w con* [id number] 09/09/2021 9:56 PM RADIATION DOSE METRICS: Total DLP (mGy-cm): 358.68 FINDINGS: Lungs: Small bilateral basilar pleural effusions. New infiltrate noted involving the right lower lobe with a stable incompletely seen bullae are cyst involving the right lower lobe measuring least 37 x 15 mm. Mild infiltrate possibly subsegmental atelectasis in the left base. Diaphragm: There is thickening noted of both diaphragmatic crura in their medial aspect. Liver: Fatty minimally enlarged liver at 180 mm. Fatty infiltration of the liver. Gallbladder and bile ducts: There is intrahepatic biliary dilatation as well as extrahepatic biliary dilatation to [address] evidence of gallstones. Pancreas: Pancreatic head calcifications. Spleen: Normal. No splenomegaly. Adrenal glands: Normal. No mass. Kidneys and ureters: Normal. No hydronephrosis. Stomach and bowel: There is diffuse thickening noted of the duodenal bulb and proximal duodenum. Fluid collection volvulus in a process of the pancreas measuring 14 x 12 mm. Diverticula without diverticulitis. Appendix: No evidence of appendicitis. Intraperitoneal space: Diffuse inflammatory changes in the upper abdomen. The pancreas itself has a dilated pancreatic duct measuring up to 7 mm as well as a mass lesion noted involving the head of the pancreas mostly cystic measuring 27 x 23 mm. Fluid is seen in the right paracolic gutter with fluid in the pelvis. Vasculature: Calcifications of a slightly aneurysmal aorta measuring 32 x 33 mm this is increased in size since the previous exam. Soft tissue density is now seen anterior to the proximal aorta in the abdomen surrounding the celiac and less the superior mesenteric artery. Lymph nodes: Numerous lymph nodes are seen surrounding the pancreas head. Urinary bladder: Unremarkable as visualized. Reproductive: Unremarkable as visualized. Bones/joints: Stable spine. Stable left hip replacement. Soft tissues: Unremarkable. CT/CT abdomen pelvis w con* [id number] IMPRESSION: 1. Numerous masses mostly cystic involving the head of the pancreas with pancreatic calcifications. There is biliary dilatation as well as pancreatic ductal dilatation. Edema and fluid surrounding the pancreas extending into the pelvis. Thickening of the proximal duodenum. These findings are possibly related to pancreatitis likely both acute and chronic with the fluid collections likely being pseudocysts and/or abscesses. However, extensive adenopathy as well as soft tissue density surrounding the upper mesenteric vessels could be indicative of a neoplastic process. 2. Thickening of the medial diaphragmatic crura bilaterally. This could be due to inflammatory changes in infection although neoplastic involvement cannot be excluded. 3. Lung infiltrates and effusions.
[2023-07-29] MEDS: iohexol 350 mg/mL 500 mL Btl (per mL) IV (12:39)
[2023-07-29 12:50] LABS: Add Urine Microscopic? YES; Bilirubin Urine Neg (Negative); Blood Urine Neg (Negative); Glucose Urine UA Norm (Normal); Ketones Urine 1+ (Negative); Leukocyte Esterase Urine 1+ (Negative); Nitrate Urine Negative (Negative); Protein Urine Trace (Negative); Specific Gravity, Urine 1.005 (1.005-1.030); Urine Appearance SL Hazy (CLEAR); Urine Color Yellow (Yellow); Urobilinogen Urine 1 mg/dL (Negative); pH Urine 7 (5-7)
[2023-07-29 12:53] LABS: Add Urine Culture? No; WBC Urine 0-4 /hpf (0-5)
== END 2023-07-29 14:46 | disposition home or self-care (01) ==
PROVIDERS: Emergency Provider Emergency Medicine; PCP Family Medicine Adult Medicine
DX: K86.1 Other chronic pancreatitis (principal); R10.10 Upper abdominal pain, unspecified; Z79.82 Long term (current) use of aspirin; Z72.0 Tobacco use; E78.5 Hyperlipidemia, unspecified; J44.9 Chronic obstructive pulmonary disease, unspecified; I25.10 Atherosclerotic heart disease of native coronary artery without angina pectoris
CPT/HCPCS: 74177; 80053; 81001; 83690; 83735; 85025; 96374; 96375; 99285; J1885; J2405; J7030; Q9967

== ENCOUNTER 2023-08-08 16:25 | Emergency (ER) | payer MEDICAID, SELFPAY ==
[2023-08-08 16:47] VITALS: BP 115/72; PULSE 111; RESP 17; TEMP 36.6; O2SAT 100; BMI 19.2
[2023-08-08 16:59] LABS: Basophils # 0.1 10^3/uL (0.0-0.1); Basophils % 0.4 %; Eosinophils # 0.6 10^3/uL (0.0-0.8); Hematocrit 34.3 % (36-47); Lymphocytes # 2.5 10^3/uL (0.8-4.8); Lymphocytes % 12.4 %; Mean Corpuscular HGB Conc 32.7 g/dL (30-55); Mean Corpuscular Hemoglobin 30.4 pg (27-33); Mean Corpuscular Volume 93.2 fl (85-98); Mean Platelet Volume 8.3 fL (7.4-10.4); Monocytes # 1.1 10^3/uL (0.2-0.9); Monocytes % 5.4 %; Neutrophils # 15.61 10^3/uL (1.8-7.7); Neutrophils % 76.4 %; Nucleated Red Blood Cells % 0 %; Platelet Count 1101 10^3/cmm (157-399); Red Blood Count 3.68 10^6/uL (3.85-5.65); White Blood Count 20.42 10^3/uL (3.29-11.43)
[2023-08-08 17:17] LABS: Alanine Aminotransferase 52 U/L (0-33); Albumin Level 3.1 g/dL (3.5-5.2); Anion Gap 18.5 (5-19); Aspartate Amino Transferase 166 U/L (0-32); Blood Urea Nitrogen 14 mg/dL (6-20); Carbon Dioxide 21 mmol/L (22-29); Chloride 98 mmol/L (98-107); Creatinine Clr Calc Pharmacy 63.5199; Globulin 3.6 g/dL (1.3-4.6); Glomerular Filtration Rate 73.4 mL/min (90-130); Glucose 103 mg/dL (65-115); Osmolality Calculated 277 mOsm/kg (285-295); Potassium 4.5 mmol/L (3.5-5.1); Sodium 133 mmol/L (136-145); Total Bilirubin 0.7 mg/dL (0.15-1.2); Total Protein 6.7 g/dL (6.6-8.7)
[2023-08-08 17:43] LABS: Lipase 1614 U/L (13-60)
[2023-08-08 17:44] LABS: Alkaline Phosphatase 1641 U/L (35-105)
--- NOTE | 2023-08-08 18:21 | CTR_ITS ---
PROCEDURE INFORMATION: Exam: CT Abdomen And Pelvis With Contrast Exam date and time: 08/08/2023 6:57 PM Age: 58 years old Clinical indication: Abdominal pain; Prior surgery; Surgery date: 6+ months; Surgery type: RT lung. Lumpectomy. Csection. Qamar. Patient HX: C/O epigastric pain. Recent history of pancreatitis. ; Additional info: Epigastric pain HX of pancreatitis TECHNIQUE: Imaging protocol: Computed tomography of the abdomen and pelvis with contrast. Radiation optimization: All CT scans at this facility use at least one of these dose optimization techniques: automated exposure control; mA and/or kV adjustment per patient size (includes targeted exams where dose is matched to clinical indication); or iterative reconstruction. Contrast material: OMNI 350; Contrast volume: 80 ml; Contrast route: INTRAVENOUS (IV); COMPARISON: CT abdomen pelvis w con* [id number] 07/29/2023 12:38 PM RADIATION DOSE METRICS: Total DLP (mGy-cm): 314.09 FINDINGS: Pleural spaces: Small right-sided pleural effusion. Liver: Normal. No mass. Gallbladder and bile ducts: See Pancreas finding. Pancreas: Multiple cystic structures within the head of the pancreas are again demonstrated measuring up to 2.7 x 3.6 cm, previously 2.8 x 2.0 cm. There is persistent dilatation of the pancreatic duct likely secondary to a large calcification in the pancreatic duct in the head of the pancreas measuring up to 9 mm. There is intrahepatic and extrahepatic biliary ductal dilatation which may be due to obstruction secondary to the pancreatic head cystic mass. Extensive fat stranding adjacent to the pancreas which can be seen the setting of pancreatitis. There is a large irregular loculated fluid collection along the posteromedial aspect of the abdominal pleura measuring at least 13.3 x 5.7 x 1.9 cm concerning for abscess. Spleen: Normal. No splenomegaly. Adrenal glands: Normal. No mass. Kidneys and ureters: Normal. No hydronephrosis. Stomach and bowel: Unremarkable. No obstruction. No mucosal thickening. Appendix: The appendix is not visualized but there are no secondary signs of acute appendicitis. Intraperitoneal space: Unremarkable. No free air. No significant fluid collection. Retroperitoneal space: Extensive retroperitoneal fat stranding and irregular fluid which appears to have progressed since the prior examination. Vasculature: Unremarkable. No abdominal aortic aneurysm. Lymph nodes: Unremarkable. No enlarged lymph nodes. Urinary bladder: Unremarkable as visualized. Reproductive: Unremarkable as visualized. Bones/joints: Unremarkable. No acute fracture. Soft tissues: Unremarkable. CT/CT abdomen pelvis w con* [id number] IMPRESSION: 1. Multiple cystic structures within the head of the pancreas are again demonstrated measuring up to 2.7 x 3.6 cm, previously 2.8 x 2.0 cm. 2. There is persistent dilatation of the pancreatic duct likely secondary to a large calcification in the pancreatic duct in the head of the pancreas measuring up to 9 mm. There is intrahepatic and extrahepatic biliary ductal dilatation which may be due to obstruction secondary to the pancreatic head cystic mass. 3. Extensive fat stranding adjacent to the pancreas which can be seen the setting of pancreatitis. 4. There is a large irregular loculated fluid collection along the posteromedial aspect of the abdominal pleura measuring at least 13.3 x 5.7 x 1.9 cm concerning for abscess.
[2023-08-08] MEDS: ondansetron 2 mg/ML SDV 2 mL 4 MG IVP (18:42)
[2023-08-08] MEDS: morphine 4 mg/mL SDV 1 mL IVP ×2 (18:43→20:56)
--- NOTE | 2023-08-08 18:43 | W.ED.ABDPA2 ---
HPI - Abdominal Pain General: Chief Complaint: Abdominal Pain Stated Complaint: abn pain / N Time Seen by Provider: 08/08/23 18:04 History of Present Illness: 58-year-old female seen previously 1 week ago and diagnosed with pancreatitis. At that point, liver enzymes are normal, and although she was given the option of admission, she elected to try to go home on a liquid diet and antibiotics. She returns with continued pain. She has had some vomiting, which is improved with antiemetics at home. She denies significant fever. She denies diarrhea. Pain is epigastric and radiates around her belly into her back. She has had the symptoms before, but without improvement, wanted to come in for reevaluation. Associated Symptoms: Reports nausea and vomiting; Denies chills and fever(s) Review of Systems Const: Denies: fever(s) or chills Eyes: Denies: change in vision ENMT: Denies: throat pain Card: Denies: chest pain or palpitations Resp: Denies: dyspnea or productive cough GI: Reports: abdominal pain, nausea and vomiting : Denies: difficulty voiding Musc: Reports: back pain Neuro: Denies: headache(s) PFSH ED PFSH: Medical History Diverticulosis large intestine w/o perforation or abscess w/bleeding 07/10/2021 EGD gastritis duodenitis and hiatal hernia. Colonoscopy showed diverticulosis. Pancreatic pseudocyst/cyst Intra-abdominal lymphadenopathy Lumbar stenosis with neurogenic claudication Abdominal cramping Gastritis and duodenitis 07/10/2021 EGD gastritis duodenitis and hiatal hernia. Colonoscopy showed diverticulosis. Hematochezia MDD (major depressive disorder), recurrent severe, without psychosis Chronic intestinal ischemic syndrome smoker Alcohol abuse She states that she stopped in June 2023. Allergic rhinitis due to allergen Hyperlipidemia COPD (chronic obstructive pulmonary disease) CAD, multiple vessel 09/23/2015 3 stents placed, 06/30/2023 angioplasty x 2 Empyema IBS (irritable bowel syndrome) GERD (gastroesophageal reflux disease) Smoker Surgical History H/O section x2 History of lung surgery right History of PTCA History of colonoscopy Dr Poe EGD-Colon 02/2022 History of esophagogastroduodenoscopy 02/2022 Dr. Poe History of lumpectomy of left breast Family History Father CAD (coronary artery disease) Hypertension Heart disease Mother CAD (coronary artery disease) massive [place] at 65 - Hypertension Grandmother Dementia Brother Heart disease Denies family history of Colon cancer Ovarian cancer Diabetes Clotting disorder Hyperlipidemia Chronic kidney disease (CKD) Breast cancer Suicide Anesthesia complication Bleeding disorder Lung disease Cancer Uterine cancer Thyroid disease Stroke Social History Smoking and tobacco/nicotine status: current every day tobacco/nicotine user Substance/Drug Use: never Physical Exam Const: GENERAL APPEARANCE: cooperative and ill appearing ORIENTATION/CONSCIOUSNESS: Yes awake, Yes oriented to person, Yes oriented to place and Yes oriented to time HENMT: COMMON NORMALS: normocephalic, atraumatic and Normal external nose present HEAD & SCALP: normocephalic and atraumatic FACE & SINUS: normal facial exam and face symmetric NOSE: Normal external nose present Eye: COMMON NORMALS: Equal, round and reactive pupils present and EOMs intact bilaterally PUPIL: Yes Equal, round and reactive pupils present Neck/C-Spine: GENERAL: Yes trachea midline Chest: CHEST: Yes Symmetrical chest wall rise Resp: COMMON NORMALS: No retractions, No use of accessory muscles and clear to auscultation bilaterally EFFORT & INSPECTION: Yes tachypneic AUSCULTATION: clear to auscultation bilaterally Cardio: COMMON NORMALS: regular rate and regular rhythm RATE: regular rate RHYTHM: regular rhythm GI: COMMON NORMALS: Normal to inspection, nondistended, normoactive bowel sounds present and Soft to palpation PALPATION: Yes Soft to palpation, Yes Tenderness to palpation present (GI) and Yes Guarding due to palpation present (GI) Extremity: COMMON NORMALS: no pedal edema Neuro: ARNOLD COMA SCALE: document GCS findings Arnold coma scale eye opening: Spontaneous Arnold coma scale verbal response: Orientated Shubert coma scale motor response: Obey commands Arnold coma scale total score: 15 SENSORIUM/ORIENTATION: Yes oriented to person, Yes oriented to place and Yes oriented to time SENSORY EXAM: Yes extremities (intact) Psych: COMMON NORMALS: speech normal SPEECH: Yes normal speech Skin: COMMON NORMALS: no rashes or lesions noted GENERAL SKIN EXAM: no rashes or lesions noted Course Vital Signs: Vital signs: Vital Signs Temperature 97.9 F 08/08/23 16:47 Pulse Rate 91 08/08/23 21:30 Respiratory Rate 16 08/08/23 21:30 Blood Pressure 97/56 08/08/23 21:30 Pulse Oximetry 100 08/08/23 21:30 Oxygen Delivery Me thod Room Air 08/08/23 21:30 MDM - Abdominal Pain Medical Decision Making Patient with a history of pancreatitis recently presents with continued symptoms despite liquid diet, and antibiotics at home. She is afebrile. Vitals have been stable. Heart rate 90s, blood pressure 100s systolic. White blood cell count is 20. Hemoglobin is 11. Platelet count 1000. CRP is significantly elevated at 113. INR is 1. Lactic acid is 1.8. Urinalysis is not remarkable. CT shows a 13 cm irregular loculated fluid collection between the pancreas and right kidney. There is extensive fat stranding adjacent to the pancreas. There is a cystic structure within the head of the pancreas Caroline ring 2.7 x 3.6 cm. She has received a sepsis bolus, Zosyn. She is on maintenance fluid currently. Pain controlled with morphine. We do not have gastroenterology or interventional radiology at this facility. We have had called out to multiple facilities, and the nearest accepting facility capable of taking care of this patient as the [facility]. They have accepted in transfer. She will go tonight if possible. Lab Data 08/08/23 16:45 08/08/23 16:45 Labs/Radiology: Radiology Impressions Abdomen/Pelvis CT 08/08/23 18:21 IMPRESSION: 1. Multiple cystic structures within the head of the pancreas are again demonstrated measuring up to 2.7 x 3.6 cm, previously 2.8 x 2.0 cm. 2. There is persistent dilatation of the pancreatic duct likely secondary to a large calcification in the pancreatic duct in the head of the pancreas measuring up to 9 mm. There is intrahepatic and extrahepatic biliary ductal dilatation which may be due to obstruction secondary to the pancreatic head cystic mass. 3. Extensive fat stranding adjacent to the pancreas which can be seen the setting of pancreatitis. 4. There is a large irregular loculated fluid collection along the posteromedial aspect of the abdominal pleura measuring at least 13.3 x 5.7 x 1.9 cm concerning for abscess. Laboratory Results WBC 20.42 10^3/uL (3.29-11.43) H 03/31/24 16:45 RBC 3.68 10^6/uL (3.85-5.65) L 08/08/23 16:45 Hgb 11.20 g/dL (11.27-16.99) L 08/08/23 16:45 Hct 34.3 % (36-47) L 08/08/23 16:45 MCV 93.2 fl (85-98) 08/08/23 16:45 MCH 30.4 pg (27-33) 08/08/23 16:45 MCHC 32.7 g/dL (30-55) 08/08/23 16:45 RDW 16.0 % (12.1-15.1) H 08/08/23 16:45 Plt Count 1101 10^3/cmm (157-399) H 08/08/23 16:45 MPV 8.3 fL (7.4-10.4) 08/08/23 16:45 Neut % (Auto) 76.4 % 08/08/23 16:45 Lymph % (Auto) 12.4 % 08/08/23 16:45 [place] % (Auto) 5.4 % 08/08/23 16:45 Eos % (Auto) 3.0 % 08/08/23 16:45 Baso % (Auto) 0.4 % 08/08/23 16:45 Neut # (Auto) 15.61 10^3/uL (1.8-7.7) H 08/08/23 16:45 Lymph # (Auto) 2.5 10^3/uL (0.8-4.8) 08/08/23 16:45 [place] # (Auto) 1.1 10^3/uL (0.2-0.9) H 08/08/23 16:45 Eos # (Auto) 0.6 10^3/uL (0.0-0.8) 08/08/23 16:45 Baso # (Auto) 0.1 10^3/uL (0.0-0.1) 08/08/23 16:45 Nucleated RBC % (auto) 0 % 08/08/23 16:45 Nucleated RBCs # 0.0 /100WBC 08/08/23 16:45 PT 13.50 SECONDS (12.1-14.9) 08/08/23 16:40 INR 1.00 (0.8-1.2) 08/08/23 16:40 Sodium 133 mmol/L (136-145) L 08/08/23 16:45 Potassium 4.5 mmol/L (3.5-5.1) 08/08/23 16:45 Chloride 98 mmol/L (98-107) 08/08/23 16:45 Carbon Dioxide 21 mmol/L (22-29) L 08/08/23 16:45 Anion Gap 18.5 (5-19) 08/08/23 16:45 BUN 14 mg/dL (6-20) 08/08/23 16:45 Creatinine 0.8 mg/dL (0.5-0.9) 08/08/23 16:45 GFR Calculation 73.4 mL/min (90-130) L 08/08/23 16:45 Glucose 103 mg/dL (65-115) 08/08/23 16:45 Calculated Osmolality 277 mOsm/kg (285-295) L 08/08/23 16:45 Lactic Acid 1.8 mmol/L (0.5-2.2) 08/08/23 16:40 Calcium 9.0 mg/dL (8.5-10.5) 08/08/23 16:45 Total Bilirubin 0.7 mg/dL (0.15-1.2) 08/08/23 16:45 AST 166 U/L (0-32) H 08/08/23 16:45 ALT 52 U/L (0-33) H 08/08/23 16:45 Alkaline Phosphatase 1641 U/L (35-105) H* 08/08/23 16:45 C-Reactive Protein 113.2 mg/L (0.0-4.9) H 08/08/23 16:40 Total Protein 6.7 g/dL (6.6-8.7) 08/08/23 16:45 Albumin 3.1 g/dL (3.5-5.2) L 08/08/23 16:45 Globulin 3.6 g/dL (1.3-4.6) 08/08/23 16:45 Triglycerides 231 mg/dL (0-150) H 08/08/23 16:40 Cholesterol 193 mg/dL (0-200) 08/08/23 16:40 LDL Cholesterol, Calc 126 mg/dL (50-129) 08/08/23 16:40 HDL Cholesterol 21 mg/dL (60-100) L 08/08/23 16:40 LDL/HDL Ratio 6.00 RATIO (0.00-3.22) H 08/08/23 16:40 Cholesterol/HDL Ratio 9.19 mg/dL (0.0-4.40) H 08/08/23 16:40 Lipase 1614 U/L (13-60) H 08/08/23 16:45 Urine Color Yellow (Yellow) 08/08/23 18:22 Urine Appearance Hazy (CLEAR) A 08/08/23 18:22 Urine pH 5 (5-7) 08/08/23 18:22 Ur Specific [place] 1.010 (1.005-1.030) 08/08/23 18:22 Urine Protein Trace (Negative) 08/08/23 18:22 Urine Glucose (UA) Norm (Normal) 08/08/23 18:22 Urine Ketones 1+ (Negative) H 08/08/23 18:22 Urine Blood Neg (Negative) 08/08/23 18:22 Urine Nitrate Negative (Negative) 08/08/23 18:22 Urine Bilirubin 1+ (Negative) H 08/08/23 18:22 Urine Urobilinogen 4 mg/dL (Negative) H 08/08/23 18:22 Ur Leukocyte Esterase Trace (Negative) H 08/08/23 18:22 Urine RBC 0-4 /hpf (0-2) H 08/08/23 18:22 Urine WBC 0-4 /hpf (0-5) H 08/08/23 18:22 Ur Squamous Epith Cells 15-25 /hpf (0-5) H 08/08/23 18:22 Amorphous Sediment Trace /hpf 08/08/23 18:22 Urine Bacteria 1+ /hpf (NONE) H 08/08/23 18:22 Hyaline Casts 5-10 /lpf H 08/08/23 18:22 Urine Mucus 2+ /hpf 08/08/23 18:22 All radiology interpretation(s) finalized by discharge Critical Care Time Critical Care Time: Critical Care Time: Yes Total Critical Care Time: 40 Attestation: This case had a high probability of a clinically significant, sudden, or life threatening deterioration of this patient's condition which required my full and direct attention, intervention and personal management. Time is independent of any procedures performed. Discharge Plan Discharge Patient Disposition: Xfer Short-Term Hosp Clinical Impression: Pancreatic pseudocyst/cyst, Abscess of pancreas Condition: Serious Prescriptions: No Action ondansetron HCl 4 mg tablet 4 mg PO Q8H PRN (Reason: nausea and vomiting) Qty: 30 0RF nitroglycerin 0.4 mg tablet, sublingual 0.4 mg sublingual Q5M PRN (Reason: chest pain) Qty: 50 3RF Rx Instructions: do not exceed 3 doses per episode isosorbide mononitrate 30 mg tablet extended release 24 hr 30 mg PO DAILY Qty: 30 5RF (DME) nebulizers Misc See Rx Instructions .Route Qty: 1 0RF Rx Instructions: As directed, use every 4-6 hours, as needed. lisinopril 40 mg tablet 40 mg PO DAILY Qty: 90 3RF metoprolol tartrate 25 mg tablet 25 mg PO BID Qty: 180 3RF albuterol sulfate [ProAir HFA] 90 mcg/actuation HFA aerosol inhaler 2 puff inhalation Q6H PRN (Reason: shortness of breath or wheezing) Qty: 8.5 5RF dicyclomine 20 mg tablet 20 mg PO QID PRN (Reason: abdominal discomfort) Qty: 120 3RF Atrovent HFA 17 mcg/actuation HFA aerosol inhaler 1 puff inhalation QID PRN (Reason: shortness of breath or wheezing) Qty: 12.9 5RF ipratropium-albuterol 0.5 mg-3 mg(2.5 mg base)/3 mL solution for nebulization 3 ml inhalation Q8H PRN (Reason: shortness of breath or wheezing) Qty: 180 3RF prasugrel [Effient] 10 mg tablet 10 mg PO DAILY Qty: 30 0RF Rx Instructions: please let us know if insurance does not cover trazodone 100 mg tablet 100 mg PO BEDTIME PRN (Reason: insomnia) Qty: 30 0RF pantoprazole 40 mg tablet,delayed release (DR/EC) 40 mg PO BID atorvastatin 40 mg tablet 40 mg PO DAILY PRN (Reason: cholesterol medication) amlodipine 2.5 mg tablet 2.5 mg PO DAILY Adult Aspirin Regimen 81 mg tablet,delayed release (DR/EC) 81 mg PO QAM hydrocodone-acetaminophen 5-325 mg tablet 1 tab PO Q6H PRN (Reason: pain) Qty: 14 0RF Referrals: Duglas Spencer MD [Primary Care Provider] - Coding Level of Care Code 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
[2023-08-08] MEDS: iohexol 350 mg/mL 500 mL Btl (per mL) IV (18:44)
[2023-08-08 18:58] LABS: Add Urine Microscopic? YES; Bilirubin Urine 1+ (Negative); Blood Urine Neg (Negative); Glucose Urine UA Norm (Normal); Ketones Urine 1+ (Negative); Leukocyte Esterase Urine Trace (Negative); Nitrate Urine Negative (Negative); Protein Urine Trace (Negative); Urine Appearance Hazy (CLEAR); Urine Color Yellow (Yellow); Urobilinogen Urine 4 mg/dL (Negative); pH Urine 5 (5-7)
[2023-08-08 18:59] LABS: Amorphous Sediment Urine TRACE /hpf; Bacteria Urine 1+ /hpf; Mucus Urine 2+ /hpf; RBC Urine 0-4 /hpf (0-2); Squamous Epithelial Cell Urine 15-25 /hpf (0-5); WBC Urine 0-4 /hpf (0-5)
[2023-08-08 19:03] LABS: Lactic Sepsis W/Reflex 1.8 mmol/L (0.5-2.2)
[2023-08-08 19:04] LABS: C Reactive Protein 113.2 mg/L (0.0-4.9); Chol HDL Ratio 9.19 mg/dL (0.0-4.40); Cholesterol 193 mg/dL (0-200); HDL Cholesterol 21 mg/dL (60-100); LDL Cholesterol Calculated 126 mg/dL (50-129); Triglycerides 231 mg/dL (0-150)
[2023-08-08 19:35] VITALS: BP 103/61; PULSE 97; RESP 16; O2SAT 96
[2023-08-08] MEDS: piperacillin-tazobactam 4.5 GM in sodium chloride 0.9% (plus) 50 ML IV (20:00)
[2023-08-08 20:56] VITALS: RESP 16; O2SAT 100
[2023-08-08 21:30] VITALS: BP 97/56; PULSE 91; RESP 16; O2SAT 100
[2023-08-08 22:01] VITALS: BP 126/69; PULSE 96; RESP 14; O2SAT 100
[2023-08-08 22:28] VITALS: BP 126/69; PULSE 96; RESP 14; TEMP 36.6; O2SAT 100
== END 2023-08-08 22:28 | disposition short-term general hospital (02) ==
PROVIDERS: Emergency Medicine; Emergency Provider Emergency Medicine; PCP Family Medicine Adult Medicine
DX: K86.3 Pseudocyst of pancreas (principal); K85.90 Acute pancreatitis without necrosis or infection, unspecified; Z79.82 Long term (current) use of aspirin; Z72.0 Tobacco use; E78.5 Hyperlipidemia, unspecified; J44.9 Chronic obstructive pulmonary disease, unspecified; I25.10 Atherosclerotic heart disease of native coronary artery without angina pectoris
CPT/HCPCS: 36415; 74177; 80053; 80061; 81001; 83605; 83690; 85025; 85610; 86140; 96365; 96375; 96376; 99285; J2270; J2405; J2543; J7030; Q9967

== ENCOUNTER 2023-09-02 10:19 | Emergency (ER) | payer MEDICAID, SELFPAY ==
[2023-09-02 10:24] VITALS: BP 117/71; PULSE 102; RESP 15; TEMP 36.6; O2SAT 100; BMI 18.8
[2023-09-02 10:57] VITALS: BP 117/71; PULSE 98; O2SAT 99
--- NOTE | 2023-09-02 11:00 | CT_ITS ---
WS: [id number] CT ABDOMEN AND PELVIS WITH CONTRAST HISTORY: abdominal pain TECHNIQUE: Imaging performed of the abdomen and pelvis with IV contrast. Single phase imaging of the abdomen. Coronal and sagittal reformats are submitted. All CT scans at [facility] use at [address] one of these dose optimization techniques: automated exposure control; mA and/or kV adjustment per patient size (includes targeted exams where dose is matched to clinical indication); or iterative re construction. IV CONTRAST: Omnipaque 350; 100 mL IV. Oral contrast: No DLP: 335.32 mGy.cm COMPARISON: 07/29/2023 and 09/09/2021 Lower thorax: Small bilateral pleural effusions. Increasing airspace disease at the RIGHT lung base. There is a thick walled cyst at the RIGHT lung base. While is becoming more prominent as there is a d eveloping infection or atelectasis at the lung bases. Heart is normal size. No hiatal hernia. Liver/biliary system: Liver is enlarged. There is intrahepatic duct dilatation which has progressed s clover the most recent study and new since 09/09/2021. Common bile duct measures 1.4 cm and tapers toward s the abnormal pancreatic head. Gallbladder: Mildly hydropic gallbladder. No wall thickening. Pancreas: Markedly abnormal pancreas. Pancreatic duct is dilated throughout its course. There are mul tiple small cystic masses and additional calcifications at the pancreatic head. There is a large calc ification in the pancreatic head which may be associated with the distal common bile duct. There is m arkedly enlarged pancreatic head/duodenum with multiple cysts and calcifications. Pancreatic head and inseparable duodenum measures 5.9 x 5.6 cm. The largest fluid collection in the pancreatic head may be an intrapancreatic pseudocyst. There is extensive peripancreatic edema and additional fluid collec tions. There is an additional subhepatic fluid collection over the RIGHT lobe of the liver adjacent to the d iaphragm measuring 1.3 x 4.2 cm which may be a small pseudocyst or developing abscess or loculated st erile fluid collection. There is marked soft tissue thickening along the diaphragmatic crura and milton g the psoas muscles. There are multiple small peripherally enhancing collections surrounding the panc reas and in the retroperitoneum. Masses involve the RIGHT psoas muscle. There is an additional more c omplex collection in the RIGHT iliac is muscle measuring 3.9 x 1.5 cm. Some of these collections have improved since 08/08/2023 and other collections have progressed. Spleen: Normal size spleen. No mass or infarct. Adrenal glands: Neither adrenal gland is well visualized. Adrenal glands are partially encased by the acute inflammatory process. Right kidney: Normal size kidney. No central obstruction. Mid RIGHT ureter is mildly dilated with per iureteral wall enhancement. Left kidney: Mild enhancement of the LEFT ureter but no obstruction. Aorta: Mild atherosclerosis with no aneurysm. There is marked soft tissue inflammation surrounding th e aorta and the celiac axis and SMA. No thrombus is identified. Mildly ectatic aorta to 3.2 cm. Lymphadenopathy: Numerous small retroperitoneal lymph nodes. Largest lymph node along the LEFT para-a ortic region is 2.0 cm. Free fluid: Small amount of free fluid extending along the paracolic gutters. There is a small amount of fluid in the dependent portion of the pelvis. GI tract: Stomach is not distended. There is mild wall thickening. Abnormal duodenal C-loop. The duod enum is inflamed and inseparable from the pancreatic head. No small bowel obstruction. No colon obstr uction. Abdominal wall: Unremarkable abdominal wall. No hernia. Pelvis: Free fluid in the pelvis. Uterus is present. Negative bladder. Bones: Unremarkable. IMPRESSION: 1. Mild progression since 08/08/2023 of the inflammatory process with fluid and multiple enhancing cy stic masses within the peritoneum and retroperitoneum. This is probably all related to patient's acut e on chronic pancreatitis. Innumerable fluid-filled masses and some of these are enhancing. Cystic ma sses have increased in number. Some of the fluid collections along the RIGHT psoas muscle have decrea sed in size while others have increased. There is a new subhepatic collection near the diaphragm. The se fluid collections may all be pancreatic pseudocyst. Abscess is not completely excluded. 2. Marked intrahepatic and extrahepatic common bile duct dilatation. There are several coarse calcif ications at the pancreatic head. The largest measures 0.9 cm and may be within the distal common bile duct causing obstruction. Intrahepatic duct dilatation is new since 09/09/2021. 3. Small bilateral pleural effusions have slightly increased in size since 08/08/2023. 4. Small amount of free fluid in the pelvis has increased.
[2023-09-02] MEDS: iohexol 350 mg/mL 500 mL Btl (per mL) IV (11:17)
[2023-09-02 11:55] LABS: Basophils # 0.1 10^3/uL (0.0-0.1); Basophils % 0.3 %; Eosinophils # 0.3 10^3/uL (0.0-0.8); Eosinophils % 1.5 %; Hematocrit 28.6 % (36-47); Lymphocytes # 1.3 10^3/uL (0.8-4.8); Lymphocytes % 6.7 %; Mean Corpuscular HGB Conc 32.5 g/dL (30-55); Mean Corpuscular Hemoglobin 28.2 pg (27-33); Mean Corpuscular Volume 86.7 fl (85-98); Mean Platelet Volume 8.5 fL (7.4-10.4); Monocytes # 0.9 10^3/uL (0.2-0.9); Monocytes % 4.6 %; Neutrophils # 16.58 10^3/uL (1.8-7.7); Nucleated Red Blood Cells % 0 %; Platelet Count 1029 10^3/cmm (157-399); Red Cell Distribution Width 17.1 % (12.1-15.1)
[2023-09-02 11:57] VITALS: RESP 18; O2SAT 98
[2023-09-02] MEDS: ondansetron 2 mg/ML SDV 2 mL 4 MG IVP (11:57)
[2023-09-02] MEDS: sodium chloride 0.9% 1,000 ML 999 ML IV (11:57)
[2023-09-02] MEDS: morphine 4 mg/mL SDV 1 mL IVP (11:57)
[2023-09-02 12:08] LABS: INR 1.09 (0.8-1.2)
[2023-09-02 12:17] LABS: Alanine Aminotransferase 14 U/L (0-33); Albumin Level 2.4 g/dL (3.5-5.2); Alkaline Phosphatase 578 U/L (35-105); Anion Gap 15.1 (5-19); Aspartate Amino Transferase 19 U/L (0-32); Blood Urea Nitrogen 7 mg/dL (6-20); Calcium 8.3 mg/dL (8.5-10.5); Carbon Dioxide 26 mmol/L (22-29); Chloride 97 mmol/L (98-107); Creatinine Clr Calc Pharmacy 100.9379; Glomerular Filtration Rate 126.3 mL/min (90-130); Glucose 102 mg/dL (65-115); Lactic Sepsis W/Reflex 1.6 mmol/L (0.5-2.2); Osmolality Calculated 278 mOsm/kg (285-295); Potassium 3.1 mmol/L (3.5-5.1); Sodium 135 mmol/L (136-145); Total Bilirubin 0.3 mg/dL (0.15-1.2); Total Protein 6.4 g/dL (6.6-8.7)
[2023-09-02 12:22] LABS: Add Urine Microscopic? YES; Bilirubin Urine Neg (Negative); Blood Urine Neg (Negative); Glucose Urine UA Norm (Normal); Ketones Urine Negative (Negative); Leukocyte Esterase Urine Negative (Negative); Nitrate Urine Negative (Negative); Protein Urine Neg (Negative); Urine Appearance SL Hazy (CLEAR); Urine Color Yellow (Yellow); Urobilinogen Urine Norm (Negative); pH Urine 7 (5-7)
[2023-09-02 12:22] LABS: Procalcitonin 0.17 ng/mL (0-0.5)
[2023-09-02 12:25] LABS: Lipase 1406 U/L (13-60)
[2023-09-02 12:30] LABS: Add Urine Culture? No; Bacteria Urine TRACE /hpf; Mucus Urine TRACE /hpf; WBC Urine 0-4 /hpf (0-5)
[2023-09-02] MEDS: piperacillin-tazobactam 3.375 GM in sodium chloride 0.9% (plus) 50 ML IV (13:29)
--- NOTE | 2023-09-02 13:29 | ED_ITS ---
HPI - Abdominal Pain 2 General: Chief Complaint: Abdominal Pain Stated Complaint: abd pain, n, v Time Seen by Provider: 09/02/23 10:25 History of Present Illness: 58-year-old female presents emergency de partment with complaints of nausea, epigastric abdominal pain that radiates to the left side of her back. Patient states her pain is a 9 out of 10 constant and aching. She states she was seen here in the emergency department on 08/08/2023 and transferred to the [facility] for pancreatic pseudocyst with significant worsening of her pancreatic cyst. Patient states that she was ultimately discharged from [facility] and was advised to follow-up outpatient she states that when she attempted to make a follow-up appointment she was advised that the physician that was to do her surgery was no longer at the facility and they did not have a physician that was able to provide her specific surgery. She states that she was provided a follow-up appointment at [facility] in [place] and states that she has contacted them to make her follow-up appointment but the pain today became severe and much worse and states that she has not been able to keep any food down at all. Patient states she has history of coronary artery disease and does have cardiac stents and is currently taking apixaban anticoagulation. She states that she has had pancreatitis in the past and is a previous user of alcohol. She states she currently smokes and has a history of COPD. She states she is having intermittent weakness fatigue and chills. Associated Symptoms: Reports chills, fever(s), nausea and vomiting Review of Systems 2 General: Reports: 10 or more systems reviewed and unremarkable except in HPI and below Const: Reports: fever(s), chills, fatigue and malaise GI: Reports: abdominal pain, nausea and vomiting PFSH ED 2 PFSH: Medical History Diverticulosis large intestine w/o perforation or abscess w/bleeding 07/10/2021 EGD gastritis duodenitis and hiatal hernia. Colonoscopy showed diverticulosis. Pancreatic pseudocyst/cyst Intra-abdominal lymphadenopathy Lumbar stenosis with neurogenic claudication Abdominal cramping Gastritis and duodenitis 07/10/2021 EGD gastritis duodenitis and hiatal hernia. Colonoscopy showed diverticulosis. Hematochezia MDD (major depressive disorder), recurrent severe, without psychosis Chronic intestinal ischemic syndrome smoker Alcohol abuse She states that she stopped in June 2023. Allergic rhinitis due to allergen Hyperlipidemia COPD (chronic obstructive pulmonary disease) CAD, multiple vessel 09/23/2015 3 stents placed, 06/30/2023 angioplasty x 2 Empyema IBS (irritable bowel syndrome) GERD (gastroesophageal reflux disease) Smoker Surgical History H/O section x2 History of lung surgery right History of PTCA History of colonoscopy Dr Poe EGD-Colon 02/2022 History of esophagogastroduodenoscopy 02/2022 Dr. Poe History of lumpectomy of left breast Family History Father CAD (coronary artery disease) Hypertension Heart disease Mother CAD (coronary artery disease) massive [place] at 65 - Hypertension Grandmother Dementia Brother Heart disease Denies family history of Colon cancer Ovarian cancer Diabetes Clotting disorder Hyperlipidemia Chronic kidney disease (CKD) Breast cancer Suicide Anesthesia complication Bleeding disorder Lung disease Cancer Uterine cancer Thyroid disease Stroke Social History Smoking and tobacco/nicotine status: current every day tobacco/nicotine user Substance/Drug Use: never Physical Exam 2 Narrative: EXAM NARRATIVE: Constitutional: the patient appears well nourished and of normal development. Vital signs as documented. In obvious pain. Alert and oriented-to person, place, time and situation. Head, eyes, ears, nose, mouth, throat: Normocephalic, atraumatic. Pupils-equal, round, reactive to light. No scleral icterus. Normal-appearing external ears. Normal appearing nasal turbinates, no drainage. No obvious oral lesions, posterior oropharynx without erythema or exudates. Neck: Supple, trachea is midline, no lymphadenopathy, no jugular venous distension, thyromegaly, or carotid bruits. Carotid upstrokes are brisk bilaterally. Lungs: clear to auscultation to all lung forrester. Symmetrical rise and fall of chest, no obvious signs of increased work of breathing at present. Cardiac: Regular rate and rhythm, positive S1, S2. No murmurs, rubs or gallops that I can appreciate Abdomen: Soft, tender to palpation to the epigastric region., normal active bowel sounds to all quadrants. No palpable masses, no organomegaly and abdominal bruits. Extremities: 2+ pulses in the upper extremities that are equal bilaterally, 2+ pulses in the lower extremities that are equal bilaterally. Non-edematous. Moves all extremities well, sensation to all extremities are noted. Skin: Warm, dry, intact. Course 2 Vital Signs: Vital signs: Vital Signs Temperature 97.9 F 09/02/23 10:24 Pulse Rate 89 09/02/23 13:35 Respiratory Rate 16 09/02/23 14:07 Blood Pressure 113/65 09/02/23 13:35 Pulse Oximetry 92 09/02/23 13:35 Oxygen Delivery Me thod Room Air 09/02/23 10:24 MDM - Abdominal Pain Medical Decision Making Physical exam completed and documented, I will obtain laboratory evaluation to include a CBC, CMP, lipase, urinalysis, and a CT scan of the patient's abdomen pelvis to evaluate for possible differential diagnosis of bowel obstruction, possible worsening pancreatitis and necrosis, colitis, diverticulitis. 13: 10 contacted [facility] and discussed with gastroenterology and they advised that they did not have the capabilities to drain the pancreatic pseudocyst and provide appropriate treatment for the patient and declined acceptance of the transfer. 14:03 Dr. Valente at [facility] discussed the patient's presentation with me and at present is unsure if they have the capabilities to provide the necessary treatment for the patient. The transfer center advised that they would call back after verifying the ability for gastroenterology to except and consult on the patient. 14:23 Estrella at the transfer center [facility] return phone call stated that Dr. Valente did except the patient and that [facility] did have the appropriate GI physician for any needed intervention. Medical Records I reviewed the patient's medical records. Lab Data I reviewed the patient's lab results. 09/02/23 11:41 09/02/23 11:41 Labs/Radiology: Laboratory Results WBC 19.50 10^3/uL (3.29-11.43) H 09/02/23 11:41 RBC 3.30 10^6/uL (3.85-5.65) L 09/02/23 11:41 Hgb 9.30 g/dL (11.27-16.99) L 09/02/23 11:41 Hct 28.6 % (36-47) L 09/02/23 11:41 MCV 86.7 fl (85-98) 09/02/23 11:41 MCH 28.2 pg (27-33) 09/02/23 11:41 MCHC 32.5 g/dL (30-55) 09/02/23 11:41 RDW 17.1 % (12.1-15.1) H 09/02/23 11:41 Plt Count 1029 10^3/cmm (157-399) H 09/02/23 11:41 MPV 8.5 fL (7.4-10.4) 09/02/23 11:41 Neut % (Auto) 85.0 % 09/02/23 11:41 Lymph % (Auto) 6.7 % 09/02/23 11:41 [place] % (Auto) 4.6 % 09/02/23 11:41 Eos % (Auto) 1.5 % 09/02/23 11:41 Baso % (Auto) 0.3 % 09/02/23 11:41 Neut # (Auto) 16.58 10^3/uL (1.8-7.7) H 09/02/23 11:41 Lymph # (Auto) 1.3 10^3/uL (0.8-4.8) 09/02/23 11:41 [place] # (Auto) 0.9 10^3/uL (0.2-0.9) 09/02/23 11:41 Eos # (Auto) 0.3 10^3/uL (0.0-0.8) 09/02/23 11:41 Baso # (Auto) 0.1 10^3/uL (0.0-0.1) 09/02/23 11:41 Nucleated RBC % (auto) 0 % 09/02/23 11:41 Nucleated RBCs # 0.0 /100WBC 09/02/23 11:41 PT 14.50 SECONDS (12.1-14.9) 09/02/23 11:41 INR 1.09 (0.8-1.2) 09/02/23 11:41 Sodium 135 mmol/L (136-145) L 09/02/23 11:41 Potassium 3.1 mmol/L (3.5-5.1) L 09/02/23 11:41 Chloride 97 mmol/L (98-107) L 09/02/23 11:41 Carbon Dioxide 26 mmol/L (22-29) 09/02/23 11:41 Anion Gap 15.1 (5-19) 09/02/23 11:41 BUN 7 mg/dL (6-20) 09/02/23 11:41 Creatinine 0.5 mg/dL (0.5-0.9) 09/02/23 11:41 GFR Calculation 126.3 mL/min (90-130) 09/02/23 11:41 Glucose 102 mg/dL (65-115) 09/02/23 11:41 Calculated Osmolality 278 mOsm/kg (285-295) L 09/02/23 11:41 Lactic Acid 1.6 mmol/L (0.5-2.2) 09/02/23 11:41 Calcium 8.3 mg/dL (8.5-10.5) L 09/02/23 11:41 Total Bilirubin 0.3 mg/dL (0.15-1.2) 09/02/23 11:41 AST 19 U/L (0-32) 09/02/23 11:41 ALT 14 U/L (0-33) 09/02/23 11:41 Alkaline Phosphatase 578 U/L (35-105) H 09/02/23 11:41 Total Protein 6.4 g/dL (6.6-8.7) L 09/02/23 11:41 Albumin 2.4 g/dL (3.5-5.2) L 09/02/23 11:41 Globulin 4.0 g/dL (1.3-4.6) 09/02/23 11:41 Lipase 1406 U/L (13-60) H 09/02/23 11:41 Procalcitonin 0.17 ng/mL (0-0.5) 09/02/23 11:41 Urine Color Yellow (Yellow) 09/02/23 12:01 Urine Appearance Sl hazy (CLEAR) A 09/02/23 12:01 Urine pH 7 (5-7) 09/02/23 12:01 Ur Specific Wisdom 1.000 (1.005-1.030) L 09/02/23 12:01 Urine Protein Neg (Negative) 09/02/23 12:01 Urine Glucose (UA) Norm (Normal) 09/02/23 12:01 Urine Ketones Negative (Negative) 09/02/23 12:01 Urine Blood Neg (Negative) 09/02/23 12:01 Urine Nitrate Negative (Negative) 09/02/23 12:01 Urine Bilirubin Neg (Negative) 09/02/23 12:01 Urine Urobilinogen Norm mg/dL (Negative) 09/02/23 12:01 Ur Leukocyte Esterase Negative (Negative) 09/02/23 12:01 Urine RBC None /hpf (0-2) 09/02/23 12:01 Urine WBC 0-4 /hpf (0-5) H 09/02/23 12:01 Ur Squamous Epith Cells 10-15 /hpf (0-5) H 09/02/23 12:01 Amorphous Sediment Not Reportable 09/02/23 12:01 Urine Bacteria Trace /hpf (NONE) 09/02/23 12:01 Urine Mucus Trace /hpf 09/02/23 12:01 Urine Yeast 1+ /hpf H 09/02/23 12:01 All radiology interpretation(s) finalized by discharge Discharge Plan Discharge Patient Disposition: Xfer Short-Term Hosp Clinical Impression: Pancreatic pseudocyst/cyst, Acute on chronic pancreatitis Abdominal pain Qualifiers: Abdominal location: epigastric Qualified Code(s): R10.13 - Epigastric pain Leukocytosis Qualifiers: Leukocytosis type: unspecified Qualified Code(s): D72.829 - Elevated white blood cell count, unspecified Condition: Stable Referrals: Duglas Spencer MD [Primary Care Provider] - Patient Instructions: Abdominal Pain (ED) Coding Level of Care Code ED [employer] for Chuyita Parsons
[2023-09-02 13:35] VITALS: BP 113/65; PULSE 89; O2SAT 92
[2023-09-02 14:07] VITALS: RESP 16
[2023-09-02] MEDS: fentaNYL 50 mcg/mL INJ 2mL IVP (14:07)
[2023-09-02 16:13] VITALS: BP 110/61; PULSE 89; O2SAT 92
== END 2023-09-02 16:16 | disposition short-term general hospital (02) ==
PROVIDERS: Emergency Provider Internal Medicine; PCP Family Medicine Adult Medicine
DX: K86.3 Pseudocyst of pancreas (principal); K86.1 Other chronic pancreatitis; R10.13 Epigastric pain; D72.829 Elevated white blood cell count, unspecified; Z72.0 Tobacco use; E78.5 Hyperlipidemia, unspecified; J44.9 Chronic obstructive pulmonary disease, unspecified; I25.10 Atherosclerotic heart disease of native coronary artery without angina pectoris
CPT/HCPCS: 36415; 74177; 80053; 81001; 83605; 83690; 84145; 85025; 85610; 87040; 96365; 96366; 99285; J2270; J2405; J2543; J3010; J7030; Q9967

== ENCOUNTER 2023-10-17 04:07 | Emergency (ER) | payer MEDICAID, SELFPAY ==
[2023-10-17 04:10] VITALS: BP 107/72; PULSE 132; RESP 17; TEMP 36.6; O2SAT 97; BMI 18.0
--- NOTE | 2023-10-17 04:14 | CTR_ITS ---
PROCEDURE INFORMATION: Exam: CTA Chest With Contrast Exam date and time: 10/17/2023 4:30 AM Age: 58 years old Clinical indication: Other: N/a; Abdominal pain; Shortness of breath; Prior surgery; Surgery date: 6+ months; Surgery type: RT lung. Breast biopsy. Pancreatic/gastric drain/stent. Csection. Patient HX: SOB with tachycardia and epigastric pain. History of recurrent pancreatitis. ; Additional info: Sob/abd pain TECHNIQUE: Imaging protocol: Computed tomographic angiography of the chest with contrast. Exam focused on the arteries. 3D rendering (Not supervised by radiologist): MIP and/or 3D reconstructed images were created by the technologist. Radiation optimization: All CT scans at this facility use at least one of these dose optimization techniques: automated exposure control; mA and/or kV adjustment per patient size (includes targeted exams where dose is matched to clinical indication); or iterative reconstruction. Contrast material: OMNI 350; Contrast volume: 137 ml; Contrast route: INTRAVENOUS (IV); COMPARISON: CR (CHEST, ) 10/17/2023 4:20 AM RADIATION DOSE METRICS: Total DLP (mGy-cm): 701.41 FINDINGS: Pulmonary arteries: No pulmonary emboli. Aorta: There is extensive edema and swelling throughout the posterior mediastinum involving the bilateral lissa and the descending aorta/aortic arch. Trachea: Secretions in the trachea. Lungs: Bibasilar consolidations. Similar cystic opacity in the right lower lobe, may reflect bronchiectasis. Pleural spaces: Large left and small right pleural effusions. Heart: No cardiomegaly. Small pericardial effusion. Coronary arteries: Moderate coronary artery calcification. Lymph nodes: Mediastinal lymphadenopathy including reference high right paratracheal lymph node (series 303, image 83) measuring 1.1 cm, para-aortic lymph node measuring 1.0 cm (series 33, image 237), and subcarinal lymph node measuring 1.4 cm. Diaphragm: Hiatal hernia with fluid and edema tracking up the esophagus into the mediastinum. Bones/joints: Unremarkable. No acute fracture. Soft tissues: Unremarkable. COMMENT: THIS REPORT CONTAINS FINDINGS THAT MAY BE CRITICAL TO PATIENT CARE. The exam findings were verbally communicated by me to СЕРГЕЙ FELDMAN via telephone conference at 5:30 AM CDT on 10/17/2023. The findings were acknowledged and understood. PROCEDURE INFORMATION: Exam: CT Abdomen And Pelvis With Contrast Exam date and time: 10/17/2023 4:30 AM Age: 58 years old Clinical indication: Other: N/a; Abdominal pain; Shortness of breath; Prior surgery; Surgery date: 6+ months; Surgery type: RT lung. Breast biopsy. Pancreatic/gastric drain/stent. Csection. Patient HX: SOB with tachycardia and epigastric pain. History of recurrent pancreatitis. ; Additional info: Sob/abd pain TECHNIQUE: Imaging protocol: Computed tomography of the abdomen and pelvis with contrast. Radiation optimization: All CT scans at this facility use at least one of these dose optimization techniques: automated exposure control; mA and/or kV adjustment per patient size (includes targeted exams where dose is matched to clinical indication); or iterative reconstruction. Contrast material: OMNI 350; Contrast volume: 137 ml; Contrast route: INTRAVENOUS (IV); COMPARISON: CT abdomen pelvis w con* [id number] 09/02/2023 11:15 AM RADIATION DOSE METRICS: Total DLP (mGy-cm): 701.41 FINDINGS: Liver: Normal appearance of the liver. Gallbladder and bile ducts: Similar moderate intrahepatic biliary ductal dilation. Pancreas: Markedly decreased size of cystic structure between the pancreatic head and duodenum now measuring 1.1 x 1.2 cm (series 3, image 28, series 4, image 37), previously 2.8 x 4.1 cm, and pancreatic tail (series 9, image 24) measuring 1.8 x 1.2 cm, previously 2.8 x 2.9 cm. Redemonstrated bulky calcifications in the pancreatic head and similar pancreatic ductal dilation measuring 6 mm in the pancreatic body. Spleen: Unremarkable. Adrenal glands: Swelling surrounding the left adrenal gland. Kidneys and ureters: No hydronephrosis. Stomach and bowel: Cyst-gastrostomy is dislodged with small volume pneumoperitoneum in the gastrohepatic space. Multiple new fluid collections are seen along the gastric wall including the gastric body/fundus measuring approximately 2.6 x 1.9 x 1.5 cm (series 31, image 17) and 5.0 x 1.1 x 1.7 cm (series 30, image 27), as well as superior to the gastric antrum measuring 3.5 x 3.9 x 2.6 cm (series 30, image 32). There is an additional small fluid collection along the colon wall in the left upper quadrant (series 9, image 18) measuring 8 x 15 mm Appendix: No evidence of appendicitis. Intraperitoneal space: Small volume pelvic free fluid. Vasculature: Severe atherosclerotic calcifications. Stable size of 3.2 cm infrarenal abdominal aortic aneurysm. Lymph nodes: No enlarged lymph nodes. Urinary bladder: Unremarkable as visualized. Reproductive: Unremarkable as visualized. Bones/joints: Status post left hip arthroplasty. Soft tissues: Interval resolution of fluid collections along the diaphragm. CT/CT angio chest w abd pel w con IMPRESSION: 1. Fluid and edema tracking up the esophagus with extensive mediastinitis throughout the posterior mediastinum involving the bilateral lissa and the descending aorta/aortic arch. 2. Bibasilar consolidations, likely a combination of atelectasis and infection. 3. Large left and small right pleural effusions. IMPRESSION: 1. Cyst-gastrostomy tube is dislodged with small volume pneumoperitoneum in the gastrohepatic space. 2. Multiple new fluid collections along the gastric wall and splenic flexure 3. Interval decreased size of peripancreatic fluid collections including dominant pancreaticoduodenal collection now measuring 1.2 cm. 4. Interval resolution of retroperitoneal fluid collections. COMMENT: THIS REPORT CONTAINS FINDINGS THAT MAY BE CRITICAL TO PATIENT CARE. The exam findings were verbally communicated by me to СЕРГЕЙ FELDMAN via telephone conference at 5:30 AM CDT on 10/17/2023. The findings were acknowledged and understood.
--- NOTE | 2023-10-17 04:14 | XRR_ITS ---
PROCEDURE INFORMATION: Exam: XR Chest Exam date and time: 10/17/2023 4:20 AM Age: 58 years old Clinical indication: Shortness of breath; Prior surgery; Surgery date: 6+ months; Surgery type: RT lung; Patient HX: SOB with tachycardia TECHNIQUE: Imaging protocol: Radiologic exam of the chest. Views: 1 view. COMPARISON: CT abdomen pelvis w con* [id number] 09/02/2023 11:15 AM FINDINGS: Lungs: Left lower lobe atelectasis. Patchy opacities in the right lower lobe concerning for infection/aspiration. Pleural spaces: Large left and small right pleural effusions. No pneumothorax. Heart/Mediastinum: No cardiomegaly. Bones/joints: Unremarkable. XR/XR chest 1V portable [id number] IMPRESSION: 1. Large left and small right pleural effusions. 2. Left lower lobe atelectasis and patchy opacities in the right lower lobe concerning for infection/aspiration.
--- NOTE | 2023-10-17 04:14 | ECG_ITS ---
[facility] Test Date: 2023-10-17 Pat Name: Tomeka Morrison Department: Room: Gender: Female Handkerchief Folder: : 1965 Requested By: Shefali Canseco Order Number: [id number] Misha MD: Robert Bowen M.D. Measurements Intervals [place] Rate: 132 P: 49 ND: 119 QRS: 61 QRSD: 93 T: -2 QT: 332 QTc: 492 Interpretive Statements SINUS TACHYCARDIA WITH SHORT ND INTERVAL NONSPECIFIC ST & T-WAVE ABNORMALITY Compared to ECG 04/13/2021 17:54:14 Short ND interval now present T-wave abnormality now present Sinus rhythm no longer present Atrial abnormality no longer present Left posterior fascicular block no longer present Myocardial infarct finding no longer present Electronically Signed On 10-17-2023 20:41:51 CDT by Robert Bowen M.D. [email or web address]
--- NOTE | 2023-10-17 04:20 | ED_ITS ---
Documented by User: Сергей Feldman MD 10/17/23 17:55 HPI - SOB/Dyspnea 2 General: Chief Complaint: Shortness of Breath/Dyspnea Stated Complaint: SOB Time Seen by Provider: 10/17/23 04:09 Source: patient and EMS Mode of arrival: EMS Limitations: no limitations History of Present Illness: HPI Narrative: 58-year-old female history of pancreatit is also had a pancreatic cyst or abscess she is transferred to [place] she states she was then transferred to [place] and had a stent placed in her pancreas she had been admitted for roughly 4 weeks states has been home for a week she states that starting yesterday she is having severe shortness of breath along with chest pressure when she was breathing. She is tachycardic here she denies any fever she denies any cough she denies any abdominal pain. She rates the chest pain she is having a 4 out of 10 Associated symptoms: Reports chest pain; Deny abdominal pain, fever(s), nausea or vomiting Review of Systems 2 Const: Denies: fever(s), chills, body aches or change in appetite ENMT: Denies: throat pain or dental pain Card: Reports: chest pain Resp: Reports: dyspnea GI: Denies: abdominal pain, nausea, vomiting or diarrhea Musc: Denies: neck pain or back pain Skin/Breast: Denies: rash Neuro: Denies: headache(s) PFSH ED 2 PFSH: Medical History Severe malnutrition Diverticulosis large intestine w/o perforation or abscess w/bleeding 07/10/2021 EGD gastritis duodenitis and hiatal hernia. Colonoscopy showed diverticulosis. Pancreatic pseudocyst/cyst Intra-abdominal lymphadenopathy Lumbar stenosis with neurogenic claudication Abdominal cramping Gastritis and duodenitis 07/10/2021 EGD gastritis duodenitis and hiatal hernia. Colonoscopy showed diverticulosis. Hematochezia MDD (major depressive disorder), recurrent severe, without psychosis Chronic intestinal ischemic syndrome smoker Alcohol abuse She states that she stopped in June 2023. Allergic rhinitis due to allergen Hyperlipidemia COPD (chronic obstructive pulmonary disease) CAD, multiple vessel 09/23/2015 3 stents placed, 06/30/2023 angioplasty x 2 Empyema IBS (irritable bowel syndrome) GERD (gastroesophageal reflux disease) Smoker Surgical History H/O section x2 History of lung surgery right History of PTCA History of colonoscopy Dr Poe EGD-Colon 02/2022 History of esophagogastroduodenoscopy 02/2022 Dr. Poe History of lumpectomy of left breast Family History Father CAD (coronary artery disease) Hypertension Heart disease Mother CAD (coronary artery disease) massive NC at 65 - Hypertension Grandmother Dementia Brother Heart disease Denies family history of Colon cancer Ovarian cancer Diabetes Clotting disorder Hyperlipidemia Chronic kidney disease (CKD) Breast cancer Suicide Anesthesia complication Bleeding disorder Lung disease Cancer Uterine cancer Thyroid disease Stroke Social History Smoking and tobacco/nicotine status: current every day tobacco/nicotine user Substance/Drug Use: never Physical Exam 2 Const: COMMON NORMALS: patient oriented x3 HENMT: COMMON NORMALS: normocephalic and atraumatic HEAD & SCALP: n ormocephalic and atraumatic Eye: COMMON NORMALS: Equal, round and reactive pupils present and EOMs intact bilaterally PUPIL: Yes Equal, round and reactive pupils present Neck/C-Spine: COMMON NORMALS: full ROM and supple Chest: COMMONS NORMALS: normal inspection of the chest Resp: COMMON NORMALS: No retractions, No use of accessory muscles and clear to auscultation bilaterally AUSCULTATION: clear to auscultation bilaterally Cardio: COMMON NORMALS: regular rhythm and No murmurs present (Cardio) R ATE: tachycardic RHYTHM: regular rhythm GI: COMMON NORMALS: Normal to inspection, nondistended, normoactive bowel sounds present, Soft to palpation, non-tender and no masses PALPATION: Yes Soft to palpation Extremity: COMMON NORMALS: normal to inspection and full ROM Neuro: COMMON NORMALS: patient oriented x3, moves all extremities and no focal motor deficits Psych: COMMON NORMALS: mental status grossly normal, Normal thought process present and cooperative THOUGHT PROCESS: Normal thought process present Skin: COMMON NORMALS: no rashes or lesions noted and no wounds GENERAL SKIN EXAM: no rashes or lesions noted Course 2 Vital Signs: Vital signs: Vital Signs Temperature 97.9 F 10/17/23 04:10 Pulse Rate 131 H 10/17/23 06:44 Respiratory Rate 24 H 10/17/23 06:44 Blood Pressure 105/66 10/17/23 06:44 Pulse Oximetry 95 10/17/23 06:44 Oxygen Delivery Me thod Nasal Cannula 10/17/23 06:44 Oxygen Flow Rate 2 10/17/23 06:44 MDM - SOB/Dyspnea Medical Records I reviewed the patient's medical records. Lab Data I reviewed the patient's lab results. 10/17/23 04:50 10/17/23 04:50 Labs/Radiology: Radiology Impressions Chest X-Ray 10/17/23 04:14 IMPRESSION: 1. Large left and small right pleural effusions. 2. Left lower lobe atelectasis and patchy opacities in the right lower lobe concerning for infection/aspiration. Chest/Abdomen/Pelvis CT 10/17/23 04:14 IMPRESSION: 1. Fluid and edema tracking up the esophagus with extensive mediastinitis throughout the posterior mediastinum involving the bilateral lissa and the descending aorta/aortic arch. 2. Bibasilar consolidations, likely a combination of atelectasis and infection. 3. Large left and small right pleural effusions. IMPRESSION: 1. Cyst-gastrostomy tube is dislodged with small volume pneumoperitoneum in the gastrohepatic space. 2. Multiple new fluid collections along the gastric wall and splenic flexure 3. Interval decreased size of peripancreatic fluid collections including dominant pancreaticoduodenal collection now measuring 1.2 cm. 4. Interval resolution of retroperitoneal fluid collections. COMMENT: THIS REPORT CONTAINS FINDINGS THAT MAY BE CRITICAL TO PATIENT CARE. The exam findings were verbally communicated by me to СЕРГЕЙ FELDMAN via telephone conference at 5:30 AM CDT on 10/17/2023. The findings were acknowledged and understood. Laboratory Results WBC 18.32 10^3/uL (3.29-11.43) H 10/17/23 04:50 RBC 3.65 10^6/uL (3.85-5.65) L 10/17/23 04:50 Hgb 9.80 g/dL (11.27-16.99) L 10/17/23 04:50 Hct 31.0 % (36-47) L 10/17/23 04:50 MCV 84.9 fl (85-98) L 10/17/23 04:50 MCH 26.8 pg (27-33) L 10/17/23 04:50 MCHC 31.6 g/dL (30-55) 10/17/23 04:50 RDW 19.3 % (12.1-15.1) H 10/17/23 04:50 Plt Count 878 10^3/cmm (157-399) H 10/17/23 04:50 MPV 8.7 fL (7.4-10.4) 10/17/23 04:50 Neut % (Auto) 81.2 % 10/17/23 04:50 Lymph % (Auto) 11.7 % 10/17/23 04:50 [place] % (Auto) 2.5 % 10/17/23 04:50 Eos % (Auto) 0.1 % 10/17/23 04:50 Baso % (Auto) 0.4 % 10/17/23 04:50 Neut # (Auto) 14.87 10^3/uL (1.8-7.7) H 10/17/23 04:50 Lymph # (Auto) 2.1 10^3/uL (0.8-4.8) 10/17/23 04:50 [place] # (Auto) 0.5 10^3/uL (0.2-0.9) 10/17/23 04:50 Eos # (Auto) 0.0 10^3/uL (0.0-0.8) 10/17/23 04:50 Baso # (Auto) 0.1 10^3/uL (0.0-0.1) 10/17/23 04:50 Nucleated RBC % (auto) 0 % 10/17/23 04:50 Nucleated RBCs # 0.0 /100WBC 10/17/23 04:50 PT 14.30 SECONDS (12.1-14.9) 10/17/23 04:50 INR 1.08 (0.8-1.2) 10/17/23 04:50 Sodium 134 mmol/L (136-145) L 10/17/23 04:50 Potassium 3.2 mmol/L (3.5-5.1) L 10/17/23 04:50 Chloride 98 mmol/L (98-107) 10/17/23 04:50 Carbon Dioxide 20 mmol/L (22-29) L 10/17/23 04:50 Anion Gap 19.2 (5-19) H 10/17/23 04:50 BUN 9 mg/dL (6-20) 10/17/23 04:50 Creatinine 0.6 mg/dL (0.5-0.9) 10/17/23 04:50 GFR Calculation 102.3 mL/min (90-130) 10/17/23 04:50 Glucose 101 mg/dL (65-115) 10/17/23 04:50 Calculated Osmolality 277 mOsm/kg (285-295) L 10/17/23 04:50 Lactic Acid 2.4 mmol/L (0.5-2.2) H 10/17/23 04:50 Calcium 7.5 mg/dL (8.5-10.5) L 10/17/23 04:50 Total Bilirubin 0.2 mg/dL (0.15-1.2) 10/17/23 04:50 AST 9 U/L (0-32) 10/17/23 04:50 ALT 6 U/L (0-33) 10/17/23 04:50 Alkaline Phosphatase 169 U/L (35-105) H 10/17/23 04:50 Troponin T Baseline 9 ng/L (0-10) 10/17/23 04:50 Troponin T 120 Minute 9.50 ng/L (0-10) 10/17/23 06:32 Delta Troponin T 0.50 ABS# (0-10) 10/17/23 06:32 Total Protein 6.1 g/dL (6.6-8.7) L 10/17/23 04:50 Albumin 2.3 g/dL (3.5-5.2) L 10/17/23 04:50 Globulin 3.8 g/dL (1.3-4.6) 10/17/23 04:50 Lipase 1206 U/L (13-60) H 10/17/23 04:50 All radiology interpretation(s) finalized by discharge EKG Data EKG 1: I personally reviewed and interpreted this EKG as follows: EKG Interpretation Date: 10/17/23 EKG interpretation time: 04:14 Interpretation: sinus tach hr [address] or t wave abnormalities qrs 93 qtc 410 Critical Care Time 2 Critical Care Time: Critical Care Time: Yes Total Critical Care Time: 50 Attestation: See discussion in MDThe high probability of a clinically significant, sudden or life threatening deterioration of the patient's gi system(s) required my full and direct attention, intervention and personal management. The critical care time is as shown. This time is in addition to time spent performing any reported procedures but includes the following: [x] Data and vital sign review and interpretation [x] Patient assessment, examination and intervention [x] Documentation [x] Medication orders and management M Discharge Plan Discharge Patient Disposition: Xfer Short-Term Hosp Clinical Impression: Alcohol abuse, Pancreatic pseudocyst/cyst, Smoker, Acute mediastinitis, Anemia, Severe sepsis, Hypoxia Condition: Serious Discharge Orders: Transfer Out of Facility (Order); Ordered 10/17/23 Ordered By: Xenia Almodovar Referrals: Duglas Spencer MD [Primary Care Provider] - Coding Level of Care Code ED Psychological Anthropologist for [facility] Documented by User: Xenia Almodovar MD 10/17/23 06:48 HPI - SOB/Dyspnea 2 General: Chief Complaint: Shortness of Breath/Dyspnea Stated Complaint: SOB Time Seen by Provider: 10/17/23 04:09 [facility] ED 2 PFSH: Medical History Severe malnutrition Diverticulosis large intestine w/o perforation or abscess w/bleeding 07/10/2021 EGD gastritis duodenitis and hiatal hernia. Colonoscopy showed diverticulosis. Pancreatic pseudocyst/cyst Intra-abdominal lymphadenopathy Lumbar stenosis with neurogenic claudication Abdominal cramping Gastritis and duodenitis 07/10/2021 EGD gastritis duodenitis and hiatal hernia. Colonoscopy showed diverticulosis. Hematochezia MDD (major depressive disorder), recurrent severe, without psychosis Chronic intestinal ischemic syndrome smoker Alcohol abuse She states that she stopped in June 2023. Allergic rhinitis due to allergen Hyperlipidemia COPD (chronic obstructive pulmonary disease) CAD, multiple vessel 09/23/2015 3 stents placed, 06/30/2023 angioplasty x 2 Empyema IBS (irritable bowel syndrome) GERD (gastroesophageal reflux disease) Smoker Surgical History H/O section x2 History of lung surgery right History of PTCA History of colonoscopy Dr Poe EGD-Colon 02/2022 History of esophagogastroduodenoscopy 02/2022 Dr. Poe History of lumpectomy of left breast Family History Father CAD (coronary artery disease) Hypertension Heart disease Mother CAD (coronary artery disease) massive NC at 65 - Hypertension Grandmother Dementia Brother Heart disease Denies family history of Colon cancer Ovarian cancer Diabetes Clotting disorder Hyperlipidemia Chronic kidney disease (CKD) Breast cancer Suicide Anesthesia complication Bleeding disorder Lung disease Cancer Uterine cancer Thyroid disease Stroke Social History Smoking and tobacco/nicotine status: current every day tobacco/nicotine user Substance/Drug Use: never Course 2 Vital Signs: Vital signs: Vital Signs Temperature 97.9 F 10/17/23 04:10 Pulse Rate 131 H 10/17/23 06:44 Respiratory Rate 24 H 10/17/23 06:44 Blood Pressure 105/66 10/17/23 06:44 Pulse Oximetry 95 10/17/23 06:44 Oxygen Delivery Me thod Nasal Cannula 10/17/23 06:44 Oxygen Flow Rate 2 10/17/23 06:44 MDM - SOB/Dyspnea Medical Decision Making This patient has had a complicated recent medical history. She was admitted to [place] for 5 weeks with pancreatitis, pancreatic pseudocyst, pancreatic drain placement. She has been home for 10 days and Binta presents with chest and abdominal pain. She also complains of shortness of breath. She is critically ill with findings on CT of mediastinitis. Her heart rate is in the 130s, oxygen currently is running in the high 80s on room air. Blood pressures have been soft and are currently 105/66. She has been treated with sepsis protocol including 2 L of fluid, antibiotics. Blood cultures and lactate have been drawn and sent. I have reevaluated her hemodynamic status at . She is awaiting transfer to [place]. I have spoken with the thoracic surgeon and with an ER physician who have accepted the patient as an ER to ER transfer. I have spoken with [facility] ambulance service for a life threat transfer. She cannot be flown due to weather between here in [place]. I have discussed the situation with the patient and she understands that she is critically ill and the need for transfer. Lab Data 10/17/23 04:50 10/17/23 04:50 Labs/Radiology: Radiology Impressions Chest X-Ray 10/17/23 04:14 IMPRESSION: 1. Large left and small right pleural effusions. 2. Left lower lobe atelectasis and patchy opacities in the right lower lobe concerning for infection/aspiration. Chest/Abdomen/Pelvis CT 10/17/23 04:14 IMPRESSION: 1. Fluid and edema tracking up the esophagus with extensive mediastinitis throughout the posterior mediastinum involving the bilateral lissa and the descending aorta/aortic arch. 2. Bibasilar consolidations, likely a combination of atelectasis and infection. 3. Large left and small right pleural effusions. IMPRESSION: 1. Cyst-gastrostomy tube is dislodged with small volume pneumoperitoneum in the gastrohepatic space. 2. Multiple new fluid collections along the gastric wall and splenic flexure 3. Interval decreased size of peripancreatic fluid collections including dominant pancreaticoduodenal collection now measuring 1.2 cm. 4. Interval resolution of retroperitoneal fluid collections. COMMENT: THIS REPORT CONTAINS FINDINGS THAT MAY BE CRITICAL TO PATIENT CARE. The exam findings were verbally communicated by me to СЕРГЕЙ FELDMAN via telephone conference at 5:30 AM CDT on 10/17/2023. The findings were acknowledged and understood. Laboratory Results WBC 18.32 10^3/uL (3.29-11.43) H 10/17/23 04:50 RBC 3.65 10^6/uL (3.85-5.65) L 10/17/23 04:50 Hgb 9.80 g/dL (11.27-16.99) L 10/17/23 04:50 Hct 31.0 % (36-47) L 10/17/23 04:50 MCV 84.9 fl (85-98) L 10/17/23 04:50 MCH 26.8 pg (27-33) L 10/17/23 04:50 MCHC 31.6 g/dL (30-55) 10/17/23 04:50 RDW 19.3 % (12.1-15.1) H 10/17/23 04:50 Plt Count 878 10^3/cmm (157-399) H 10/17/23 04:50 MPV 8.7 fL (7.4-10.4) 10/17/23 04:50 Neut % (Auto) 81.2 % 10/17/23 04:50 Lymph % (Auto) 11.7 % 10/17/23 04:50 [place] % (Auto) 2.5 % 10/17/23 04:50 Eos % (Auto) 0.1 % 10/17/23 04:50 Baso % (Auto) 0.4 % 10/17/23 04:50 Neut # (Auto) 14.87 10^3/uL (1.8-7.7) H 10/17/23 04:50 Lymph # (Auto) 2.1 10^3/uL (0.8-4.8) 10/17/23 04:50 [place] # (Auto) 0.5 10^3/uL (0.2-0.9) 10/17/23 04:50 Eos # (Auto) 0.0 10^3/uL (0.0-0.8) 10/17/23 04:50 Baso # (Auto) 0.1 10^3/uL (0.0-0.1) 10/17/23 04:50 Nucleated RBC % (auto) 0 % 10/17/23 04:50 Nucleated RBCs # 0.0 /100WBC 10/17/23 04:50 PT 14.30 SECONDS (12.1-14.9) 10/17/23 04:50 INR 1.08 (0.8-1.2) 10/17/23 04:50 Sodium 134 mmol/L (136-145) L 10/17/23 04:50 Potassium 3.2 mmol/L (3.5-5.1) L 10/17/23 04:50 Chloride 98 mmol/L (98-107) 10/17/23 04:50 Carbon Dioxide 20 mmol/L (22-29) L 10/17/23 04:50 Anion Gap 19.2 (5-19) H 10/17/23 04:50 BUN 9 mg/dL (6-20) 10/17/23 04:50 Creatinine 0.6 mg/dL (0.5-0.9) 10/17/23 04:50 GFR Calculation 102.3 mL/min (90-130) 10/17/23 04:50 Glucose 101 mg/dL (65-115) 10/17/23 04:50 Calculated Osmolality 277 mOsm/kg (285-295) L 10/17/23 04:50 Lactic Acid 2.4 mmol/L (0.5-2.2) H 10/17/23 04:50 Calcium 7.5 mg/dL (8.5-10.5) L 10/17/23 04:50 Total Bilirubin 0.2 mg/dL (0.15-1.2) 10/17/23 04:50 AST 9 U/L (0-32) 10/17/23 04:50 ALT 6 U/L (0-33) 10/17/23 04:50 Alkaline Phosphatase 169 U/L (35-105) H 10/17/23 04:50 Troponin T Baseline 9 ng/L (0-10) 10/17/23 04:50 Troponin T 120 Minute 9.50 ng/L (0-10) 10/17/23 06:32 Delta Troponin T 0.50 ABS# (0-10) 10/17/23 06:32 Total Protein 6.1 g/dL (6.6-8.7) L 10/17/23 04:50 Albumin 2.3 g/dL (3.5-5.2) L 10/17/23 04:50 Globulin 3.8 g/dL (1.3-4.6) 10/17/23 04:50 Lipase 1206 U/L (13-60) H 10/17/23 04:50 Critical Care Time 2 Critical Care Time: Attestation: See discussion in MDM Discharge Plan Discharge Patient Disposition: Xfer Short-Term Hosp Clinical Impression: Alcohol abuse, Pancreatic pseudocyst/cyst, Smoker, Acute mediastinitis, Anemia, Severe sepsis, Hypoxia Condition: Serious Discharge Orders: Transfer Out of Facility (Order); Ordered 10/17/23 Ordered By: Xenia Almodovar Referrals: Duglas Spencer MD [Primary Care Provider] - Coding Level of Care Code ED Psychological Anthropologist for [facility]
[2023-10-17 04:29] VITALS: BP 107/72; PULSE 132; RESP 17; O2SAT 97
[2023-10-17] MEDS: iohexol 350 mg/mL 500 mL Btl (per mL) IV (04:32)
[2023-10-17] MEDS: sodium chloride 0.9% 1,000 ML 999 ML IV (04:49)
[2023-10-17 04:57] LABS: Basophils # 0.1 10^3/uL (0.0-0.1); Basophils % 0.4 %; Eosinophils % 0.1 %; Lymphocytes # 2.1 10^3/uL (0.8-4.8); Lymphocytes % 11.7 %; Mean Corpuscular HGB Conc 31.6 g/dL (30-55); Mean Corpuscular Hemoglobin 26.8 pg (27-33); Mean Corpuscular Volume 84.9 fl (85-98); Mean Platelet Volume 8.7 fL (7.4-10.4); Monocytes # 0.5 10^3/uL (0.2-0.9); Monocytes % 2.5 %; Neutrophils # 14.87 10^3/uL (1.8-7.7); Neutrophils % 81.2 %; Nucleated Red Blood Cells % 0 %; Platelet Count 878 10^3/cmm (157-399); Red Blood Count 3.65 10^6/uL (3.85-5.65); Red Cell Distribution Width 19.3 % (12.1-15.1); White Blood Count 18.32 10^3/uL (3.29-11.43)
[2023-10-17] MEDS: ondansetron 2 mg/ML SDV 2 mL 4 MG IVP (04:58)
[2023-10-17 05:00] VITALS: RESP 22; O2SAT 94
[2023-10-17] MEDS: morphine 4 mg/mL SDV 1 mL IVP ×2 (05:00→07:02)
[2023-10-17 05:15] LABS: Troponin(5th) Baseline 9 ng/L (0-10)
[2023-10-17 05:16] LABS: Alanine Aminotransferase 6 U/L (0-33); Albumin Level 2.3 g/dL (3.5-5.2); Alkaline Phosphatase 169 U/L (35-105); Anion Gap 19.2 (5-19); Aspartate Amino Transferase 9 U/L (0-32); Blood Urea Nitrogen 9 mg/dL (6-20); Calcium 7.5 mg/dL (8.5-10.5); Carbon Dioxide 20 mmol/L (22-29); Chloride 98 mmol/L (98-107); Creatinine Clr Calc Pharmacy 82.6691; Globulin 3.8 g/dL (1.3-4.6); Glomerular Filtration Rate 102.3 mL/min (90-130); Glucose 101 mg/dL (65-115); INR 1.08 (0.8-1.2); Osmolality Calculated 277 mOsm/kg (285-295); Potassium 3.2 mmol/L (3.5-5.1); Sodium 134 mmol/L (136-145); Total Bilirubin 0.2 mg/dL (0.15-1.2); Total Protein 6.1 g/dL (6.6-8.7)
[2023-10-17] MEDS: piperacillin-tazobactam 3.375 GM in sodium chloride 0.9% (plus) 50 ML IV (05:16)
[2023-10-17] MEDS: vancomycin 1,000 MG in sodium chloride 0.9% 250 ML 250 MG IV (05:22)
[2023-10-17 05:25] LABS: Lipase 1206 U/L (13-60)
[2023-10-17 05:33] LABS: Lactic Sepsis W/Reflex 2.4 mmol/L (0.5-2.2)
[2023-10-17] MEDS: HYDROmorphone 1 mg/mL INJ 1 mL IVP (05:41)
[2023-10-17] MEDS: sodium chloride 0.9% 500 ML 999 ML IV (05:45)
[2023-10-17 06:44] VITALS: BP 105/66; PULSE 131; RESP 24; O2SAT 95
--- NOTE | 2023-10-17 07:04 | PC.NURSE ---
Per Dr Almodovar verbal order the Levophed was sent with [facility] upon transfer to [place] for low BP.
[2023-10-17 07:08] LABS: Reflex Lactate Order REFLEX LACTIC ORDERD
== END 2023-10-17 07:09 | disposition short-term general hospital (02) ==
PROVIDERS: Emergency Medicine; Emergency Provider Emergency Medicine; PCP Family Medicine Adult Medicine
DX: K86.3 Pseudocyst of pancreas (principal); F10.10 Alcohol abuse, uncomplicated; J98.51 Mediastinitis; D64.9 Anemia, unspecified; A41.9 Sepsis, unspecified organism; R65.20 Severe sepsis without septic shock; R09.02 Hypoxemia; E78.5 Hyperlipidemia, unspecified; J44.9 Chronic obstructive pulmonary disease, unspecified; I25.10 Atherosclerotic heart disease of native coronary artery without angina pectoris; Z72.0 Tobacco use; R00.0 Tachycardia, unspecified
CPT/HCPCS: 36415; 71045; 71275; 74177; 80053; 83605; 83690; 84484; 85025; 85610; 87040; 93005; 96365; 96375; 96376; 99285; J1170; J2270; J2405; J2543; J3370; J7030; J7040; J7050; Q9967

== ENCOUNTER 2023-12-20 12:11 | Outpatient (CLI) | payer MEDICAID, SELFPAY ==
[2023-12-20 13:15] LABS: Basophils # 0.1 10^3/uL (0.0-0.1); Basophils % 0.6 %; Eosinophils # 1.5 10^3/uL (0.0-0.8); Eosinophils % 14.8 %; Hematocrit 35.7 % (36-47); Lymphocytes % 19.8 %; Mean Corpuscular HGB Conc 31.4 g/dL (30-55); Mean Corpuscular Hemoglobin 28.4 pg (27-33); Mean Corpuscular Volume 90.4 fl (85-98); Mean Platelet Volume 8.4 fL (7.4-10.4); Monocytes # 0.5 10^3/uL (0.2-0.9); Monocytes % 4.8 %; Neutrophils # 6.05 10^3/uL (1.8-7.7); Neutrophils % 59.8 %; Nucleated Red Blood Cells % 0 %; Platelet Count 667 10^3/cmm (157-399); Red Blood Count 3.95 10^6/uL (3.85-5.65); Red Cell Distribution Width 17.6 % (12.1-15.1); White Blood Count 10.13 10^3/uL (3.29-11.43)
[2023-12-20 13:20] LABS: Erythrocyte Sedimentation Rate 91 mm/hr (0-15)
[2023-12-20 13:41] LABS: Alanine Aminotransferase 12 U/L (0-33); Albumin Level 3.6 g/dL (3.5-5.2); Alkaline Phosphatase 322 U/L (35-105); Aspartate Amino Transferase 21 U/L (0-32); Blood Urea Nitrogen 7 mg/dL (6-20); C Reactive Protein 19.4 mg/L (0.0-4.9); Calcium 9.2 mg/dL (8.5-10.5); Carbon Dioxide 24 mmol/L (22-29); Chloride 99 mmol/L (98-107); Globulin 4.8 g/dL (1.3-4.6); Glomerular Filtration Rate 126.3 mL/min (90-130); Glucose 87 mg/dL (65-115); Osmolality Calculated 281 mOsm/kg (285-295); Sodium 137 mmol/L (136-145); Total Bilirubin 0.2 mg/dL (0.15-1.2); Total Protein 8.4 g/dL (6.6-8.7)
== END 2023-12-20 12:12 | disposition home or self-care (01) ==
LOC: LAB 12:20
PROVIDERS: PCP Family Medicine Adult Medicine
DX: J98.51 Mediastinitis (principal)
CPT/HCPCS: 80053; 85025; 85651; 86140

== ENCOUNTER 2023-12-27 13:00 | Outpatient (RCR) | payer MEDICAID, SELFPAY ==
[2023-12-27 13:39] LABS: Basophils # 0.1 10^3/uL (0.0-0.1); Basophils % 0.5 %; Eosinophils # 2.9 10^3/uL (0.0-0.8); Eosinophils % 24.6 %; Hematocrit 35.7 % (36-47); Lymphocytes # 1.7 10^3/uL (0.8-4.8); Lymphocytes % 14.6 %; Mean Corpuscular HGB Conc 32.2 g/dL (30-55); Mean Corpuscular Volume 89.9 fl (85-98); Mean Platelet Volume 8.6 fL (7.4-10.4); Monocytes # 0.6 10^3/uL (0.2-0.9); Monocytes % 5.3 %; Neutrophils # 6.36 10^3/uL (1.8-7.7); Neutrophils % 54.8 %; Nucleated Red Blood Cells % 0 %; Platelet Count 588 10^3/cmm (157-399); Red Blood Count 3.97 10^6/uL (3.85-5.65); Red Cell Distribution Width 17.3 % (12.1-15.1); White Blood Count 11.59 10^3/uL (3.29-11.43)
[2023-12-27 13:53] LABS: Erythrocyte Sedimentation Rate 107 mm/hr (0-15)
[2023-12-27 14:07] LABS: Alanine Aminotransferase 10 U/L (0-33); Albumin Level 3.7 g/dL (3.5-5.2); Alkaline Phosphatase 236 U/L (35-105); Anion Gap 19.8 (5-19); Aspartate Amino Transferase 19 U/L (0-32); Blood Urea Nitrogen 9 mg/dL (6-20); C Reactive Protein 28.2 mg/L (0.0-4.9); Calcium 9.2 mg/dL (8.5-10.5); Carbon Dioxide 22 mmol/L (22-29); Chloride 99 mmol/L (98-107); Globulin 4.5 g/dL (1.3-4.6); Glomerular Filtration Rate 102.3 mL/min (90-130); Glucose 83 mg/dL (65-115); Osmolality Calculated 280 mOsm/kg (285-295); Potassium 4.8 mmol/L (3.5-5.1); Sodium 136 mmol/L (136-145); Total Bilirubin 0.2 mg/dL (0.15-1.2); Total Protein 8.2 g/dL (6.6-8.7)
== END 2024-01-08 23:59 | disposition home or self-care (01) ==
LOC: LAB 13:00
PROVIDERS: PCP Family Medicine Adult Medicine; Visit Provider Family Medicine Adult Medicine
DX: J98.51 Mediastinitis (principal); Z79.899 Other long term (current) drug therapy
CPT/HCPCS: 80053; 85025; 85651; 86140

== ENCOUNTER 2023-12-29 08:28 | Outpatient (CLI) | payer MEDICAID, SELFPAY ==
[2023-12-29 09:18] LABS: Chol HDL Ratio 15.83 mg/dL (0.0-4.40); Cholesterol 380 mg/dL (0-200); HDL Cholesterol 24 mg/dL (60-100); Triglycerides 421 mg/dL (0-150); VLDL Cholestrol Calculation 84 mg/dL (0-30)
[2023-12-29 10:22] LABS: LDL Cholesterol Direct 261 mg/dL (0-100)
== END 2023-12-29 08:29 | disposition home or self-care (01) ==
LOC: LAB 08:29
PROVIDERS: PCP Family Medicine Adult Medicine; Visit Provider Internal Medicine Cardiovascular Disease
DX: I25.118 Atherosclerotic heart disease of native coronary artery with other forms of angina pectoris (principal); I10 Essential (primary) hypertension; E78.2 Mixed hyperlipidemia; K86.3 Pseudocyst of pancreas; J86.9 Pyothorax without fistula; F17.200 Nicotine dependence, unspecified, uncomplicated
CPT/HCPCS: 36415; 80061; 83721; 99214

== ENCOUNTER 2024-01-12 07:20 | Outpatient (CLI) | payer MEDICAID, SELFPAY ==
--- NOTE | 2024-01-12 07:29 | CT_ITS ---
WS: [id number] CT chest w con* [id number] HISTORY: MEDIASTINITIS TECHNIQUE: Axial imaging performed through the thorax. Coronal and sagittal reformats are submitted. All CT scans at [facility] use at least one of these dose optimization techniques: automated exposure control; mA and/or kV adjustment per patient size (includes targeted exams where dose is mat ched to clinical indication); or iterative reconstruction. CONTRAST: Omnipaque 350; 80 mL IV. DLP: 196.53 mGy.cm COMPARISON: 10/17/2023, 06/05/2009 Lungs and central airway: Overall there is been improvement in the appearance of the lungs since 2023. Continued hyperexpansion with changes of centrilobular emphysema. There are scattered pulmonary nodules and subsolid nodules and areas of scarring. These nodules are probably obscured on the prior examination by the pleural effusions. 5 mm nodule in the posterior RIGHT upper lobe. Subpleural nodu le LEFT upper thorax. There is additional pleural thickening posteriorly which may be related to prio r chest tube placements. Pleura: Loculated pleural effusion along the RIGHT minor fissure measures 3.0 x 3.6 x 5.3 cm. There i s additional mild pleural thickening which is probably fluid along the inferior LEFT fissure. No free -flowing effusions. Heart and pericardium: Normal size heart with no pericardial effusion. Mediastinum and lissa: Mildly prominent lymphoid tissue in the mediastinum and hilar regions measuring up to 13 mm at the RIGHT hilum. Overall the mediastinal fluid and lymph nodes are improving since 10/17/2023. Vessels: Mild atherosclerosis aorta. Proximal pulmonary artery is normal. Chest wall and lower neck: No soft tissue masses. Upper abdomen: Reidentified is mild intrahepatic and extrahepatic duct dilatation. Limited visualizat ion of the upper abdomen. The LEFT adrenal gland is mildly thickened. Osseous structures: Mild anterior wedging of T6, New since 10/17/2023. CT/CT chest w con* [id number] IMPRESSION: 1. Overall significant improvement in the appearance of the lungs since the pr ior study of 10/17/2023. Free-flowing pleural effusions have resolved. 2. Loculated pleural fluid along the fissures. 3. There are a few scattered pulmonary nodules and areas of groundglass attenu ation and scarring. Pulmonary nodules and pleural thickening may have been pres ent on the prior examination but obscured by the fluid. Consider follow-up in 6 months, chest CT with IV contrast. 4. Prominent mediastinal and hilar lymph nodes measuring up to 13 [address] [facility] hilum. Improving since 10/17/2023. Probably reactive adenopathy. 5. Reidentified but incompletely imaged, is mild intrahepatic duct dilatation .
[2024-01-12] MEDS: iohexol 350 mg/mL 500 mL Btl (per mL) IV (07:49)
== END 2024-01-12 07:21 | disposition home or self-care (01) ==
LOC: RAD 07:20
PROVIDERS: PCP Family Medicine Adult Medicine; Visit Provider Family Medicine Adult Medicine
DX: J98.51 Mediastinitis (principal); J43.2 Centrilobular emphysema; R91.8 Other nonspecific abnormal finding of lung field; J90 Pleural effusion, not elsewhere classified
CPT/HCPCS: 71260

== ENCOUNTER → 2024-04-12 09:28 | Outpatient (BNVA) | payer MEDICAID, SELFPAY | PROVIDERS: PCP Family Medicine Adult Medicine; Visit Provider Nurse Practitioner Family | DX: I25.10 Atherosclerotic heart disease of native coronary artery without angina pectoris (principal); I10 Essential (primary) hypertension; F17.200 Nicotine dependence, unspecified, uncomplicated; E78.5 Hyperlipidemia, unspecified | CPT/HCPCS: 99214 ==

== ENCOUNTER 2024-04-14 07:53 | Outpatient (CLI) | payer MEDICAID, SELFPAY ==
--- NOTE | 2024-04-14 07:57 | CTR_ITS ---
PROCEDURE INFORMATION: Exam: CT Abdomen And Pelvis With Contrast Exam date and time: 04/14/2024 8:31 AM Age: 59 years old Clinical indication: Abdominal pain; Generalized; Prior surgery; Surgery date: 6+ months; Surgery type: Pancreatic duct stent x3; Additional info: Pancreatic duct stent exchange/pancreatic pseudocyst TECHNIQUE: Imaging protocol: Computed tomography of the abdomen and pelvis with contrast. Radiation optimization: All CT scans at this facility use at least one of these dose optimization techniques: automated exposure control; mA and/or kV adjustment per patient size (includes targeted exams where dose is matched to clinical indication); or iterative reconstruction. Contrast material: OMNI 350; Contrast volume: 80 ml; Contrast route: INTRAVENOUS (IV); COMPARISON: CT angio chest w abd pel w con 10/17/2023 4:30 AM RADIATION DOSE METRICS: Total DLP (mGy-cm): 239.13 FINDINGS: Lungs: Partially imaged hypoattenuating lesion in the central right lung, favored to represent loculated fluid along the right oblique interlobar fissure, measuring up to at least 3.2 cm. Internally, this measures roughly 20 Hounsfield units. Liver: No suspicious hepatic masses. Moderate intrahepatic and extrahepatic biliary ductal dilation. Gallbladder and biliary ducts: Gallbladder is normal in appearance. Pancreas: Pancreatic duct stent present extending from the pancreatic neck into the duodenum. No distinct pancreatic ductal dilation. Redemonstrated coarse calcifications within the pancreas head. No distinct pancreatic or peripancreatic fluid collections on current study. Spleen: The spleen is unremarkable. Adrenal glands: The adrenal glands are unremarkable. Kidneys and ureters: Kidneys are normal. No hydronephrosis or nephrolithiasis. Stomach and bowel: Nonobstructive bowel-gas pattern. Appendix: No evidence of acute appendicitis. Intraperitoneal space: Trace nonspecific free fluid in the pelvis. Vasculature: Moderate calcific atheromatous disease of the abdominal aorta and its major branches. Focal ectasia of the infrarenal abdominal aorta measuring up to 2.7 cm. Lymph nodes: Multiple prominent sub threshold lymph nodes about the area of the pancreas head, decreased in conspicuity compared to 10/17/2023. Urinary bladder: Urinary bladder is within normal limits. Reproductive: Visualized reproductive structures are within normal limits. Bones/joints: Status post left hip arthroplasty. Multilevel lumbar spondylosis. No distinct acute osseous fracture. Soft tissues: Visualized superficial soft tissues are within normal limits. CT/CT abdomen pelvis w con* [id number] IMPRESSION: 1. Moderate intrahepatic and extrahepatic biliary ductal dilation. This appears worsened compared to 10/17/2023. 2. Pancreatic duct stent present extending from the pancreatic neck into the duodenum. No distinct pancreatic ductal dilation. 3. Redemonstrated coarse calcifications within the pancreas head. 4. Multiple prominent sub threshold lymph nodes about the area of the pancreas head, decreased in conspicuity compared to 10/17/2023. 5. No distinct pancreatic or peripancreatic fluid collections on current study. 6. Partially imaged hypoattenuating lesion in the central right lung, favored to represent loculated fluid along the right oblique interlobar fissure, measuring up to at least 3.2 cm. Internally, this measures roughly 20 Hounsfield units.
[2024-04-14 08:18] LABS: Basophils # 0.1 10^3/uL (0.0-0.1); Basophils % 0.5 %; Eosinophils # 0.3 10^3/uL (0.0-0.8); Eosinophils % 3.1 %; Hematocrit 38.7 % (36-47); Lymphocytes # 2.2 10^3/uL (0.8-4.8); Mean Corpuscular HGB Conc 32.6 g/dL (30-55); Mean Corpuscular Hemoglobin 28.4 pg (27-33); Mean Corpuscular Volume 87.4 fl (85-98); Mean Platelet Volume 8.4 fL (7.4-10.4); Monocytes # 0.7 10^3/uL (0.2-0.9); Monocytes % 6.2 %; Neutrophils % 68.2 %; Nucleated Red Blood Cells % 0 %; Platelet Count 566 10^3/cmm (157-399); Red Blood Count 4.43 10^6/uL (3.85-5.65); Red Cell Distribution Width 18.9 % (12.1-15.1); White Blood Count 10.69 10^3/uL (3.29-11.43)
[2024-04-14] MEDS: iohexol 350 mg/mL 500 mL Btl (per mL) IV (08:28)
[2024-04-14 08:37] LABS: Alanine Aminotransferase 73 U/L (0-33); Albumin Level 4.2 g/dL (3.5-5.2); Alkaline Phosphatase 938 U/L (35-105); Anion Gap 16.8 (5-19); Aspartate Amino Transferase 59 U/L (0-32); Blood Urea Nitrogen 13 mg/dL (8-23); Calcium 10.2 mg/dL (8.5-10.5); Carbon Dioxide 26 mmol/L (22-29); Chloride 97 mmol/L (98-107); Globulin 3.9 g/dL (1.3-4.6); Glomerular Filtration Rate 85.4 mL/min (90-130); Glucose 111 mg/dL (65-115); Osmolality Calculated 281 mOsm/kg (285-295); Potassium 4.8 mmol/L (3.5-5.1); Sodium 135 mmol/L (136-145); Total Bilirubin 0.4 mg/dL (0.15-1.2); Total Protein 8.1 g/dL (6.6-8.7)
== END 2024-04-14 07:54 | disposition home or self-care (01) ==
LOC: RAD 07:55
PROVIDERS: Nurse Practitioner Family; PCP Family Medicine Adult Medicine; Visit Provider Internal Medicine Gastroenterology
DX: K86.3 Pseudocyst of pancreas (principal); J43.1 Panlobular emphysema; I25.118 Atherosclerotic heart disease of native coronary artery with other forms of angina pectoris; I77.811 Abdominal aortic ectasia; Z46.59 Encounter for fitting and adjustment of other gastrointestinal appliance and device; K83.8 Other specified diseases of biliary tract; R59.0 Localized enlarged lymph nodes
CPT/HCPCS: 74177; 80053; 85025

== ENCOUNTER → 2024-06-20 11:13 | Outpatient (BNVA) | payer MEDICAID, SELFPAY | PROVIDERS: PCP Family Medicine Adult Medicine; Visit Provider Internal Medicine Cardiovascular Disease | DX: I25.118 Atherosclerotic heart disease of native coronary artery with other forms of angina pectoris (principal); E78.5 Hyperlipidemia, unspecified; I10 Essential (primary) hypertension; E78.2 Mixed hyperlipidemia; K86.3 Pseudocyst of pancreas; J86.9 Pyothorax without fistula; F17.200 Nicotine dependence, unspecified, uncomplicated | CPT/HCPCS: 99214 ==

== ENCOUNTER 2024-06-29 07:24 | Inpatient (IN) | payer MEDICAID, SELFPAY ==
[2024-06-29] VITALS (7 sets, daily range): BP systolic 97–141; BP diastolic 57–86; PULSE 72–100; RESP 16–18; TEMP 36.7–37.2; O2SAT 91–100; BMI 18.8
--- NOTE | 2024-06-29 07:31 | ED_ITS ---
HPI - Abdominal Pain 2 General: Chief Complaint: Abdominal Pain Stated Complaint: abd pain Time Seen by Provider: 06/29/24 07:28 Source: patient and EMS Mode of arrival: EMS Limitations: no limitations History of Present Illness: 59-year-old female with a history of abd ominal pains had chronic pancreatitis has had multiple pancreatic stents placed. States she had 1 removed a month ago she been having some increased pain over the 1 to 2 weeks states pains been sharp in nature rates it a 4 out of 10 currently had some nausea denies any vomiting or diarrhea or fevers Associated Symptoms: Reports nausea; Denies chills, diarrhea, dysuria, fever(s) and vomiting Related Data Home Medications ?Medication ?Instructions ?Recorded ?Confirmed isavuconazonium sulfate 186 mg 372 mg PO DAILY 4 06/29/24 capsule (Cresemba) loperamide 2 mg capsule 2 mg PO Q6H PRN Diarrhea 06/29/24 atorvastatin 40 mg tablet 40 mg PO QPM 06/29/24 clopidogrel 75 mg tablet (Plavix) 75 mg PO QAM 5 06/29/24 dicyclomine 20 mg tablet 20 mg PO QID PRN Abdominal P ain 06/29/24 06/29/24 gabapentin 300 mg capsule 300 mg PO BID 06/29/2406/29 hydroxyzine HCl 10 mg tablet 10 mg PO Q4H PRN anxiety 06/29/24 06/29/24 ramelteon 8 mg tablet 8 mg PO BEDTIME PRN sleep 06/29/24 Previous Rx's ?Medication ?Instructions ?Recorded nebulizers #1 ea 06/30/21 lisinopril 20 mg tablet 20 mg PO DAILY #90 tabs 12/09 06/02 ipratropium 0.5 mg-albuterol 3 mg 3 ml inhalation Q8H PRN shortness 01/12/24 (2.5 mg base)/3 mL nebulization of breath or wheezing #180 mL soln ipratropium bromide 17 1 puff inhalation QID PRN mcg/actuation HFA aerosol inhaler shortness of breath or wheezing (Atrovent HFA) #12.9 grams trazodone 100 mg tablet 100 mg PO BEDTIME PRN insomn ia #30 04/27/24 tabs pantoprazole 20 mg tablet,delayed 20 mg PO BID #30 tab s 05/23/24 release ondansetron 4 mg disintegrating 4 mg PO Q6H PRN nausea and 06/26/24 tablet vomiting #20 tabs Allergies Allergy/AdvReac Type Severity Reaction Status Date / Time No Known Allergies Allergy Verified 06/20/24 11:32 Review of Systems 2 Const: Denies: fever(s), chills, body aches or change in appetite ENMT: Denies: throat pain or dental pain Card: Denies: chest pain Resp: Denies: dyspnea GI: Reports: nausea; Denies: abdominal pain, vomiting or diarrhea : Denies: dysuria Musc: Denies: neck pain or back pain Skin/Breast: Denies: rash Neuro: Denies: headache(s) PFSH ED 2 PFSH: Medical History Pancreatic duct calculus Large stone on EGD found during admission 10/20 through 11/22/2023 at [place], formerly [facility], later [facility] as outpatient Alcohol-induced chronic pancreatitis 10/17/23 [facility] Admit Mediastinitis, chronic 10/17/23 -11/30/2023 [facility] stay, leak with mediastinitis and julianne empyema with gastrocystomy tube Pancreatic pseudocyst/cyst 10/17/23 -11/30/2023 [facility], thoracic infiltration with decortication of left lung chest tubes and Julianne albicans empyema and continues in right lung sulci, pancreatic duct is final 10/20 and removed 11/22/2023 Severe malnutrition Diverticulosis large intestine w/o perforation or abscess w/bleeding 07/10/2021 EGD gastritis duodenitis and hiatal hernia. Colonoscopy showed diverticulosis. Intra-abdominal lymphadenopathy Lumbar stenosis with neurogenic claudication Abdominal cramping Gastritis and duodenitis 07/10/2021 EGD gastritis duodenitis and hiatal hernia. Colonoscopy showed diverticulosis. Hematochezia MDD (major depressive disorder), recurrent severe, without psychosis Chronic intestinal ischemic syndrome smoker Alcohol abuse She states that she stopped in June 2023. Allergic rhinitis due to allergen Hyperlipidemia COPD (chronic obstructive pulmonary disease) CAD, multiple vessel 09/23/2015 3 stents placed, 06/30/2023 angioplasty x 2 Empyema IBS (irritable bowel syndrome) GERD (gastroesophageal reflux disease) Smoker Surgical History H/O section x2 History of lung surgery right History of PTCA History of colonoscopy Dr Poe EGD-Colon 02/2022 History of esophagogastroduodenoscopy 02/2022 Dr. Poe History of lumpectomy of left breast Family History Father CAD (coronary artery disease) Hypertension Heart disease Mother CAD (coronary artery disease) massive [place] at 65 - Hypertension Grandmother Dementia Brother Heart disease Denies family history of Colon cancer Ovarian cancer Diabetes Clotting disorder Hyperlipidemia Chronic kidney disease (CKD) Breast cancer Suicide Anesthesia complication Bleeding disorder Lung disease Cancer Uterine cancer Thyroid disease Stroke Social History Smoking and tobacco/nicotine status: current every day tobacco/nicotine user (1-1.5 ppd) Substance/Drug Use: never Physical Exam 2 Const: COMMON NORMALS: no acute distress, patient oriented x3 and healthy appearing HENMT: COMMON NORMALS: normocephalic and atraumatic HEAD & SCALP: n ormocephalic and atraumatic Eye: COMMON NORMALS: conjunctivae normal CONJUNCTIVA: Yes conjunctivae normal Neck/C-Spine: COMMON NORMALS: full ROM and supple Chest: COMMONS NORMALS: normal inspection of the chest Resp: COMMON NORMALS: normal respiratory effort, No retractions, No use of accessory muscles and clear to auscultation bilaterally AUSCULTATION: clear to auscultation bilaterally Cardio: COMMON NORMALS: regular rate, regular rhythm and No murmurs present (Cardio) RATE: regular rate RHYTHM: regular rhythm GI: COMMON NORMALS: Normal to inspection, nondistended, normoactive bowel sounds present, Soft to palpation, non-tender and no masses PALPATION: Yes Soft to palpation Extremity: COMMON NORMALS: normal to inspection and full ROM Neuro: COMMON NORMALS: patient oriented x3, moves all extremities and no focal motor deficits Psych: COMMON NORMALS: mental status grossly normal, Normal thought process present and cooperative THOUGHT PROCESS: Normal thought process present Skin: COMMON NORMALS: no rashes or lesions noted and no wounds GENERAL SKIN EXAM: no rashes or lesions noted Course 2 Vital Signs: Vital signs: Vital Signs Temperature 98.4 F 06/29/24 07:25 Pulse Rate 72 06/29/24 13:28 Respiratory Rate 17 06/29/24 09:00 Blood Pressure 118/57 06/29/24 13:28 Pulse Oximetry 97 06/29/24 13:28 Oxygen Delivery Me thod Room Air 06/29/24 13:28 MDM - Abdominal Pain Medical Decision Making Patient presents here with abdominal pain CT showed inflammation around the pancreas along with duodenum and gallbladder patient is seen in the ER by surgeon Dr. Hong he recommended transfer to [place] that she has had extensive history there with pancreatic stents I did speak to GI team at [place] patient on the wait list there I spoke to hospitalist along with surgeon again who is comfortable with admitting patient here while wait for a bed there she has been stable in the ER did give her IV antibiotics. Medical Records I reviewed the patient's medical records. Lab Data I reviewed the patient's lab results. 06/29/24 07:42 06/29/24 07:42 Labs/Radiology: Radiology Impressions Abdomen/Pelvis CT 06/29/24 08:15 IMPRESSION: 1. Large amount of acute inflammation in the RIGHT upper quadrant contiguous from the gallbladder to the duodenum and pancreatic head. There is marked mucosal and submucosal edema within the duodenum. 2. Fluid collection with wall enhancement between the gallbladder and the duodenum measures 3.1 x 1.0 cm. Highly suspicious for an abscess. This could be due to a perforated duodenal ulcer or pseudocyst and less likely gallbladder perforation. 3. Cystic duct also appears prominent and fluid-filled but no obstructing stone. Similar to the prior exam. 4. Mild gallbladder hydrops. 5. Extensive calcifications in the pancreatic head from prior episodes of chronic pancreatitis. 6. Progression of pancreatic duct dilatation since 04/14/2024. Pancreatic duct stent is no longer identified. 7. Small amount of free fluid. Notified Shefali Canseco MD at 06/29/2024 8:58 AM. Gallbladder Ultrasound 06/29/24 10:16 IMPRESSION: 1. Abnormal gallbladder. Gallbladder is slightly hydropic with gallbladder wall thickening and pericholecystic fluid. The fluid collection between the gallbladder and the duodenum is not as well visualized by ultrasound. Differential includes acute cholecystitis. Based upon the CT findings it is difficult to differentiate between acute pancreatitis and acute duodenal inflammation. 2. Edematous pancreatic head with pancreatic calcifications from prior episodes of pancreatitis. Pancreatic duct is dilated. 3. Dilated intrahepatic and extrahepatic biliary ducts. Chronic finding with slight progression over several prior examinations. Laboratory Results WBC 21.57 10^3/uL (3.29-11.43) H 06/29/24 07:42 RBC 5.06 10^6/uL (3.85-5.65) 06/29/24 07:42 Hgb 15.20 g/dL (11.27-16.99) 06/29/24 07:42 Hct 42.6 % (36-47) 06/29/24 07:42 MCV 84.2 fl (85-98) L 06/29/24 07:42 MCH 30.0 pg (27-33) 06/29/24 07:42 MCHC 35.7 g/dL (30-55) 06/29/24 07:42 RDW 13.8 % (12.1-15.1) 06/29/24 07:42 Plt Count 615 10^3/cmm (157-399) H 06/29/24 07:42 MPV 8.3 fL (7.4-10.4) 06/29/24 07:42 Neut % (Auto) 89.0 % 06/29/24 07:42 Lymph % (Auto) 6.3 % 06/29/24 07:42 Hendry % (Auto) 3.8 % 06/29/24 07:42 Eos % (Auto) 0.1 % 06/29/24 07:42 Baso % (Auto) 0.2 % 06/29/24 07:42 Neut # (Auto) 19.19 10^3/uL (1.8-7.7) H 06/29/24 07:42 Lymph # (Auto) 1.4 10^3/uL (0.8-4.8) 06/29/24 07:42 Hendry # (Auto) 0.8 10^3/uL (0.2-0.9) 06/29/24 07:42 Eos # (Auto) 0.0 10^3/uL (0.0-0.8) 06/29/24 07:42 Baso # (Auto) 0.1 10^3/uL (0.0-0.1) 06/29/24 07:42 Nucleated RBC % (auto) 0 % 06/29/24 07:42 Nucleated RBCs # 0.0 /100WBC 06/29/24 07:42 Sodium 123 mmol/L (136-145) L 06/29/24 07:42 Potassium 4.3 mmol/L (3.5-5.1) 06/29/24 07:42 Chloride 85 mmol/L (98-107) L 06/29/24 07:42 Carbon Dioxide 23 mmol/L (22-29) 06/29/24 07:42 Anion Gap 19.3 (5-19) H 06/29/24 07:42 BUN 10 mg/dL (8-23) 06/29/24 07:42 Creatinine 0.6 mg/dL (0.5-0.9) 06/29/24 07:42 GFR Calculation 102.0 mL/min (90-130) 06/29/24 07:42 Glucose 135 mg/dL (65-115) H 06/29/24 07:42 Calculated Osmolality 257 mOsm/kg (285-295) L 06/29/24 07:42 Lactic Acid 1.7 mmol/L (0.5-2.2) 06/29/24 07:42 Calcium 9.8 mg/dL (8.5-10.5) 06/29/24 07:42 Total Bilirubin 0.4 mg/dL (0.15-1.2) 06/29/24 07:42 AST 18 U/L (0-32) 06/29/24 07:42 ALT 23 U/L (0-33) 06/29/24 07:42 Alkaline Phosphatase 599 U/L (35-105) H 06/29/24 07:42 Total Protein 8.1 g/dL (6.6-8.7) 06/29/24 07:42 Albumin 4.3 g/dL (3.5-5.2) 06/29/24 07:42 Globulin 3.8 g/dL (1.3-4.6) 06/29/24 07:42 Lipase 136 U/L (13-60) H 06/29/24 07:42 All radiology interpretation(s) finalized by discharge Discharge Plan Discharge Patient Disposition: Admitted As Inpatient Admit Provider: Chaka Knight Clinical Impression: Duodenitis, Abdominal pain Condition: Stable Coding Level of Care Code ED Coordinator Skill Training Program for Chuyita Parsons
[2024-06-29] MEDS: morphine 4 mg/mL SDV 1 mL IVP (07:39)
[2024-06-29] MEDS: ondansetron 2 mg/ML SDV 2 mL 4 MG IVP (07:39)
[2024-06-29 08:04] LABS: Basophils # 0.1 10^3/uL (0.0-0.1); Basophils % 0.2 %; Eosinophils % 0.1 %; Hematocrit 42.6 % (36-47); Lymphocytes # 1.4 10^3/uL (0.8-4.8); Lymphocytes % 6.3 %; Mean Corpuscular HGB Conc 35.7 g/dL (30-55); Mean Corpuscular Volume 84.2 fl (85-98); Mean Platelet Volume 8.3 fL (7.4-10.4); Monocytes # 0.8 10^3/uL (0.2-0.9); Monocytes % 3.8 %; Neutrophils # 19.19 10^3/uL (1.8-7.7); Nucleated Red Blood Cells % 0 %; Platelet Count 615 10^3/cmm (157-399); Red Blood Count 5.06 10^6/uL (3.85-5.65); Red Cell Distribution Width 13.8 % (12.1-15.1); White Blood Count 21.57 10^3/uL (3.29-11.43)
--- NOTE | 2024-06-29 08:15 | CT_ITS ---
WS: [id number] CT ABDOMEN AND PELVIS WITH CONTRAST HISTORY: abd pain, epigastric pain for 3 days. Increasing. TECHNIQUE: Imaging performed of the abdomen and pelvis with IV contrast. Single phase imaging of the abdomen. Coronal and sagittal reformats are submitted. All CT scans at [facility] use at least one of these dose optimization techniques: automated exposure control; mA and/or kV adjustment per patient size (includes targeted exams where dose is matched to clinical indication); or iterative reconstruction. IV CONTRAST: Omnipaque 350; 100 mL IV. Oral contrast: No DLP: 314.17 mGy.cm COMPARISON: 04/14/2024 Lower thorax: Incompletely visualized low-attenuation well-circumscribed collection in the RIGHT lower lung field. This is probably due to loculated effusion along the fissure. Heart is normal size. Small hiatal hernia. Liver/biliary system: Marked increase intrahepatic extrahepatic duct dilatation, similar to the prior examination. Common bile duct measures up to 10 mm. Gallbladder: Gallbladder is mildly hydropic with adjacent edema and mild wall thickening. No stones are identified within the gallbladder. Dilated tubular structure filled with fluid appears to extend from the gallbladder to the common bile duct and this may be a dilated cystic duct. There is a large amount of inflammation within this area. Pancreas: Pancreas is abnormal as previously described. Numerous calcifications at the pancreatic head and uncinate process. There are several calcifications extending along the pancreatic duct. Pancreatic duct is dilated. The pancreatic duct dilatation has progressed since the prior studies measuring just over 3 mm. Previously described stent is no longer identified. There is a large amount of inflammation surrounding the pancreatic head but centered also around the duodenal C-loop and the gallbladder. Spleen: Normal size spleen. No mass or infarct. Adrenal glands: Normal RIGHT adrenal gland. Mild hyperplasia LEFT adrenal gland. Right kidney: Normal size kidney with nonobstructing calcifications. Left kidney: No obstruction. Mild cortical thinning in the lower pole. Aorta: Mild atherosclerosis aorta. SMA and celiac axis are patent. More extensive calcified plaque extending into the iliac arteries with component of stenosis. Lymphadenopathy: Subcentimeter central mesenteric and retroperitoneal lymph nodes are identified. The largest lymph node is 9 mm in the LEFT para-aortic location at the level of the renal vein. Free fluid: Small amount of fluid along the RIGHT paracolic gutter extending into the pelvis. GI tract: Normally distended stomach. There is a large amount of inflammation beginning in the stomach antrum extending through the duodenal C-loop. Medicinal tablet towards the antrum. There is a large amount of inflammation and edema in the RIGHT upper quadrant contiguous between the gallbladder, duodenum and pancreatic head. There is a fluid collection with wall enhancement between the gallbladder and the duodenum measuring 3.1 x 1.0 cm. Abdominal wall: Unremarkable abdominal wall. No hernia. Pelvis: Small amount of free fluid in the pelvis. Pelvic venous congestion. Dilated gonadal veins. Urinary bladder is minimally distended. Bones: Degenerative disc disease. No fracture. Prior LEFT hip arthroplasty. CT/CT abdomen pelvis w con* [id number] IMPRESSION: 1. Large amount of acute inflammation in the RIGHT upper quadrant contiguous f rom the gallbladder to the duodenum and pancreatic head. There is marked mucosa l and submucosal edema within the duodenum. 2. Fluid collection with wall enhancement between the gallbladder and the duod enum measures 3.1 x 1.0 cm. Highly suspicious for an abscess. This could be due to a perforated duodenal ulcer or pseudocyst and less likely gallbladder perfo ration. 3. Cystic duct also appears prominent and fluid-filled but no obstructing ston e. Similar to the prior exam. 4. Mild gallbladder hydrops. 5. 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 6. Progression of pancreatic duct dilatation since 04/14/2024. Pancreatic duct stent is no longer identified. 7. Small amount of free fluid. Notified Shefali Canseco MD at 06/29/2024 8:58 AM.
[2024-06-29 08:16] LABS: Alanine Aminotransferase 23 U/L (0-33); Albumin Level 4.3 g/dL (3.5-5.2); Alkaline Phosphatase 599 U/L (35-105); Anion Gap 19.3 (5-19); Aspartate Amino Transferase 18 U/L (0-32); Blood Urea Nitrogen 10 mg/dL (8-23); Calcium 9.8 mg/dL (8.5-10.5); Carbon Dioxide 23 mmol/L (22-29); Chloride 85 mmol/L (98-107); Creatinine Clr Calc Pharmacy 83.0765; Globulin 3.8 g/dL (1.3-4.6); Glucose 135 mg/dL (65-115); Lipase 136 U/L (13-60); Osmolality Calculated 257 mOsm/kg (285-295); Potassium 4.3 mmol/L (3.5-5.1); Sodium 123 mmol/L (136-145); Total Bilirubin 0.4 mg/dL (0.15-1.2); Total Protein 8.1 g/dL (6.6-8.7)
[2024-06-29] MEDS: iohexol 350 mg/mL 500 mL Btl (per mL) IV (08:29)
[2024-06-29] MEDS: sodium chloride 0.9% 1,000 ML 999 ML IV ×2 (08:53→11:51)
[2024-06-29] MEDS: piperacillin-tazobactam 3.375 GM in sodium chloride 0.9% (plus) 50 ML IV (09:12)
[2024-06-29 09:48] LABS: Lactic Sepsis W/Reflex 1.7 mmol/L (0.5-2.2)
--- NOTE | 2024-06-29 10:16 | US_ITS ---
WS: [id number] RIGHT UPPER QUADRANT ULTRASOUND HISTORY: ruq pain COMPARISON: 06/24/2021, CT 06/29/2024 Liver: 20.8 cm in length. Enlarged liver with marked intrahepatic duct dilatation which has been previously described. Common bile duct is dilated to 1.3 cm. No stones identified in the common bile duct. Chronic intrahepatic and extrahepatic duct dilatation but does appear to have progressed over the last few examinations. Portal Vein: Normal hepatopetal flow with monophasic waveform. Gallbladder: Normally distended gallbladder. No stones identified in the gallbladder. There is gallbladder wall thickening with pericholecystic fluid. There is edema noted in the adjacent duodenum. The fluid collection noted on the CT is not as well defined but there is significant inflammation between the gallbladder and the duodenum. CBD: 1.3 cm Pancreas: Pancreas is poorly visualized. The pancreas is echogenic with numerous calcifications. Pancreatic calcifications have been previously described. The pancreatic duct is dilated just greater than 3 mm. Right kidney: 10.3 cm in length. Normal size and echogenicity. No hydronephrosis or mass. Aorta and IVC: Atherosclerosis aorta. Ectatic aorta with dilatation. Small amount of fluid adjacent to the liver. US/US gall bladder [id number] IMPRESSION: 1. Abnormal gallbladder. Gallbladder is slightly hydropic with gallbladder wal l thickening and pericholecystic fluid. The fluid collection between the gallbl adder and the duodenum is not as well visualized by ultrasound. Differential in cludes acute cholecystitis. Based upon the CT findings it is difficult to diffe rentiate between acute pancreatitis and acute duodenal inflammation. 2. Edematous pancreatic head with pancreatic calcifications from prior episode s of pancreatitis. Pancreatic duct is dilated. 3. Dilated intrahepatic and extrahepatic biliary ducts. Chronic finding with s light progression over several prior examinations.
[2024-06-29] MEDS: HYDROMORPHONE HCL 0.5 MG/0.5 ML INJ 1 MG IVP ×2 (10:19→21:39)
--- NOTE | 2024-06-29 11:49 | PM.HP ---
Providers/Chief Complaint Primary Care Provider: Duglas Spencer MD Chief Complaint: abd pain History of Present Illness Tomeka Morrison is a 59 year old female with history of pancreatitis, pancreatic stents, removed about a month ago, history of pancreatic pseudocyst, gastritis, diverticulosis, IBS, history of alcohol induced chronic pancreatitis, smoking, on Cresemba, 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 In ER with leukocytosis 21.57, afebrile, heart rate 80s-90s, with hyponatremia 123, lactic acid is normal, lipase 136, CT abdomen pelvis with large bowel inflammation in the right upper quadrant continuous from gallbladder to the duodenum and pancreatic head. Marked mucosal and submucosal edema within the duodenum. Fluid collection with wall enhancement between gallbladder and the duodenum measuring 2.1 x 1 cm. Highly suspicious for an abscess. Could be due to perforated duodenal ulcer or pseudocyst and less likely gallbladder perforation. Cystic duct appears prominent and fluid-filled but no obstructing stone. Similar to prior exam. Mild gallbladder hydrops. Extensive calcifications in the pancreatic head from prior episodes of current pancreatitis. Progression of pancreatic duct dilation since 04/14/2024, pancreatic duct stent no longer identified. Small amount of free fluid. Gallbladder ultrasound with abnormal gallbladder, slightly hydropic with gallbladder wall thickening and pericholecystic fluid. Fluid collection between gallbladder and duodenum not well-visualized by ultrasound. Differential including acute cholecystitis. Based upon CT it is difficult to differentiate between acute pancreatitis and acute duodenal inflammation. Edematous pancreatic head with pancreatic ossifications from prior episodes of pancreatitis. Pancreatic duct is dilated. Dilated intrahepatic and expanded biliary ducts. Chronic finding with slight progression over several prior exams. Review of Systems Const: Denies: fever(s), chills, body aches or malaise ENMT: Denies: throat pain Card: Denies: chest pain, edema, pre-syncope or dyspnea on exertion Resp: Denies: dyspnea, productive cough, change in phlegm color or hemoptysis GI: Reports: abdominal pain and nausea; Denies: vomiting, diarrhea, constipation, hematochezia or melena : Denies: flank pain, urinary frequency or hematuria Musc: Denies: back pain, joint swelling or joint redness Skin/Breast: Denies: rash or new lesions Medications/Allergies Home Medications ?Medication ?Instructions ?Recorded ?Confirmed ?Last Taken ?Type nebulizers #1 ea 06/30/21 06/29/24 07/09/21 Rx isavuconazonium sulfate 186 mg 372 mg PO DAILY 12/02/23 06/29/24 06/28/24 History capsule (Cresemba) loperamide 2 mg capsule 2 mg PO Q6H PRN Diarrhea 12/02/23 06/29/24 Unknown History lisinopril 20 mg tablet 20 mg PO DAILY #90 tabs 12/29/23 06/29/24 06/29/24 Rx ipratropium 0.5 mg-albuterol 3 mg 3 ml inhalation Q8H PRN shortness 01/12/24 06/29/24 Unknown Rx (2.5 mg base)/3 mL nebulization of breath or wheezing #180 mL soln ipratropium bromide 17 1 puff inhalation QID PRN 01/12/24 06/29/24 Unknown Rx mcg/actuation HFA aerosol inhaler shortness of breath or wheezing (Atrovent HFA) #12.9 grams trazodone 100 mg tablet 100 mg PO BEDTIME PRN insomnia #30 04/27/24 06/29/24 06/28/24 Rx tabs pantoprazole 20 mg tablet,delayed 20 mg PO BID #30 tabs 05/23/24 06/29/24 06/29/24 Rx release ondansetron 4 mg disintegrating 4 mg PO Q6H PRN nausea and 06/26/24 06/29/24 Unknown Rx tablet vomiting #20 tabs atorvastatin 40 mg tablet 40 mg PO QPM 06/29/24 06/29/24 06/28/24 History clopidogrel 75 mg tablet (Plavix) 75 mg PO QAM 06/29/24 06/29/24 06/29/24 History dicyclomine 20 mg tablet 20 mg PO QID PRN Abdominal Pain 06/29/24 06/29/24 06/28/24 History gabapentin 300 mg capsule 300 mg PO BID 06/29/24 06/29/24 06/28/24 History hydroxyzine HCl 10 mg tablet 10 mg PO Q4H PRN anxiety 06/29/24 06/29/24 Unknown History ramelteon 8 mg tablet 8 mg PO BEDTIME PRN sleep 06/29/24 06/29/24 Unknown History Allergies Allergy/AdvReac Type Severity Reaction Status Date / Time No Known Allergies Allergy Verified 06/20/24 11:32 PFSH Acute PFSH: Medical History Pancreatic duct calculus Large stone on EGD found during admission 10/20 through 11/22/2023 at [facility] as outpatient Alcohol-induced chronic pancreatitis 10/17/23 [facility] Admit Mediastinitis, chronic 10/17/23 -11/30/2023 [facility] stay, leak with mediastinitis and julianne empyema with gastrocystomy tube Pancreatic pseudocyst/cyst 10/17/23 -11/30/2023 [facility], thoracic infiltration with decortication of left lung chest tubes and Julianne albicans empyema and continues in right lung sulci, pancreatic duct is final 10/20 and removed 11/22/2023 Severe malnutrition Diverticulosis large intestine w/o perforation or abscess w/bleeding 07/10/2021 EGD gastritis duodenitis and hiatal hernia. Colonoscopy showed diverticulosis. Intra-abdominal lymphadenopathy Lumbar stenosis with neurogenic claudication Abdominal cramping Gastritis and duodenitis 07/10/2021 EGD gastritis duodenitis and hiatal hernia. Colonoscopy showed diverticulosis. Hematochezia MDD (major depressive disorder), recurrent severe, without psychosis Chronic intestinal ischemic syndrome smoker Alcohol abuse She states that she stopped in June 2023. Allergic rhinitis due to allergen Hyperlipidemia COPD (chronic obstructive pulmonary disease) CAD, multiple vessel 09/23/2015 3 stents placed, 06/30/2023 angioplasty x 2 Empyema IBS (irritable bowel syndrome) GERD (gastroesophageal reflux disease) Smoker Surgical History H/O section x2 History of lung surgery right History of PTCA History of colonoscopy Dr Poe EGD-Colon 02/2022 History of esophagogastroduodenoscopy 02/2022 Dr. Poe History of lumpectomy of left breast Family History Father CAD (coronary artery disease) Hypertension Heart disease Mother CAD (coronary artery disease) massive [place] at 65 - Hypertension Grandmother Dementia Brother Heart disease Denies family history of Colon cancer Ovarian cancer Diabetes Clotting disorder Hyperlipidemia Chronic kidney disease (CKD) Breast cancer Suicide Anesthesia complication Bleeding disorder Lung disease Cancer Uterine cancer Thyroid disease Stroke Social History Smoking and tobacco/nicotine status: current every day tobacco/nicotine user (1-1.5 ppd) Substance/Drug Use: never Vitals/I&O/Wt Last Vital Signs Temp 98.4 F 06/29/24 07:25 Pulse 81 06/29/24 09:00 Resp 17 06/29/24 09:00 BP 102/58 06/29/24 09:00 Pulse Ox 97 06/29/24 09:00 O2 Del Method Room Air 06/29/24 09:00 Weight last 48 hrs Weight 49.895 kg Physical Exam Const: COMMON NORMALS: patient oriented x3 and alert GENERAL APPEARANCE: cooperative ORIENTATION/CONSCIOUSNESS: Yes awake HENMT: COMMON NORMALS: oropharynx normal Neck/C-Spine: COMMON NORMALS: no JVD Resp: COMMON NORMALS: normal respiratory effort and clear to auscultation bilaterally AUSCULTATION: clear to auscultation bilaterally Cardio: COMMON NORMALS: no JVD, regular rhythm, S1 normal heart sound present, S2 normal heart sound present and No murmurs present (Cardio) RHYTHM: regular rhythm HEART SOUNDS: S1 normal heart sound present and S2 normal heart sound present GI: COMMON NORMALS: Normal to inspection, nondistended, normoactive bowel sounds present and Soft to palpation PALPATION: Yes Soft to palpation and Yes Tenderness to palpation present (GI) Details: other (Upper abdomen) Extremity: COMMON NORMALS: no joint enlargement and no pedal edema Neuro: COMMON NORMALS: patient oriented x3 and moves all extremities SENSORIUM/ORIENTATION: Yes alert Skin: COMMON NORMALS: no rashes or lesions noted GENERAL SKIN EXAM: no rashes or lesions noted Sepsis: Is patient septic: Yes Focused sepsis exam performed: Yes Focused sepsis exam: She is awake alert, with good mentation, maintaining blood pressure, without mottling or cyanosis. Good capillary refill. Date exam was performed: 06/29/24 Time exam was performed: 11:30 Data 06/29/24 07:42 06/29/24 07:42 Micro: Microbiology 06/29/24 11:08 Blood Culture - Preliminary Blood SPECIMEN COLLECTED 06/29/24 11:04 Blood Culture - Preliminary Blood SPECIMEN COLLECTED A&P Assessment and plan (1) SIRS (systemic inflammatory response syndrome): Reviewed vitals, CBC, CMP, CT abdomen pelvis, gallbladder ultrasound, requested COVID PCR panel, blood cultures have been obtained. Empirically started on Zosyn, vancomycin. SIRS possibly secondary to duodenitis, possible mild acute on chronic pancreatitis, although lipase reviewed, noted only 136. He has noted to have fluid collection between pancreas and duodenum, question of possible inflammatory collection versus abscess. Additionally gallbladder wall thickening, pericholecystic fluid, surrounding inflammation around gallbladder, pancreas, duodenum. Alk phos with elevation 499, although back in April was 938. T. bili is normal, AST, LT is normal. Reviewed ER provider note, discussed with ER provider. Discussed with general superintendent, discussed with surgeon, question of possibility of duodenal perforation, but appears less likely, no surrounding or intra-abdominal air. Gastrografin study not likely to be useful as per discussion. Additionally endoscopy considered, but unable to perform endoscopy at least a year due to known duodenal stricture, perhaps may be able to be performed at [facility]. Additional question with regards to possibility of cholecystitis, discussed with radiology, surgery, appears less likely cholecystitis, suspected secondary changes due to neighboring process. With the amount of local inflammation she would not be a surgical candidate. For now also cholecystotomy is not recommended at this time, but needing reassessment. Monitor vitals, reassess condition, CMP, CBC. In case of worsening parameters consideration of cholecystotomy. The fluid collection between pancreas and duodenum unfortunately not accessible by percutaneous means. Recommendation for transfer to [facility] for reassessment by GI, consideration of ERCP, consideration of replacement of pancreatic stent. Additional finding of possible gastroduodenal pseudoaneurysm in the addendum would make percutaneous drainage more risky as well. Question of possible increased risk of rupture although finding present on prior studies, currently in the middle of the inflammation/infectious process. Updated [facility]. Empiric antibiotic coverage at current time with Zosyn, received vancomycin as well with frequent healthcare contact. Monitor for risk of kidney injury with antibiotic combination. Will check MRSA PCR. (2) Intra-abdominal fluid collection: As above. Abscess versus related to duodenitis and/or pancreatitis. Will give IV PPI twice daily for now. Not amenable to percutaneous access. Pending transfer for additional assessment at [facility]. (3) Abnormal findings on diagnostic imaging of gall bladder: With gallbladder wall thickening, pericholecystic fluid. As above. (4) Duodenitis: IV PPI twice daily. (5) Hyponatremia: With poor oral intake, nausea, dry heaving, with dehydration presentation, with hypovolemic hyponatremia, sodium 123. Has received volume resuscitation. Recheck sodium. (6) Pseudoaneurysm: Possible pseudoaneurysm of gastroduodenal artery, studies, but currently in the middle of the inflammatory/infectious process. Question of possibly increased risk of rupture due to the process. Complicated Sherman with regards to the additional finding. Plan HTN: Soft blood pressure, hold antihypertensives for now. Hold gabapentin for now as well. Reassess blood pressures. On Cresemba, following with infectious disease after a pulmonary abscess, exposed continue Cresemba for a year: Medication not available in our hospital, but her daughter will bring the medication for her to be able to use here. History of pancreatitis, pancreatic stents, removed about a month ago, history of pancreatic pseudocyst, Gastritis, continue PPI Diverticulosis, without diverticulitis IBS, she has for the most part were not regulated, using fiber, other dietary and supportive means History of alcohol induced chronic pancreatitis, Smoking, discussed smoking cessation with her for 5 minutes. She declines any nicotine replacement at current time. States that she has been able to successfully stop smoking for about 4 months previously and has not had an issue. Continue to encourage cessation. Other medical problems PDMP PDMP Reviewed: Not Reviewed Attestations Medical Necessity Statement*: Admission over 2 midnights anticipated for assessment management pending bed availability for transfer to [facility], with possible intra-abdominal abscess after recurrent pancreatitis, duodenitis, possibility of cholecystitis, SIRS, possible sepsis, possible gastroduodenal pseudoaneurysm in the focus of inflammation/infection, hyponatremia. and High Time for a total of 85 minutes, includes reviewing past or interval history, examining/interviewing patient, placing orders, counseling patient/family/other support, discussing plan of care with staff, communicating with other healthcare providers, documenting encounter and coordinating care Diagnoses SIRS (systemic inflammatory response syndrome) R65.10 Intra-abdominal fluid collection R18.8 Abnormal findings on diagnostic imaging of gall bladder R93.2 Duodenitis K29.80 Hyponatremia E87.1 Pseudoaneurysm I72.9
--- NOTE | 2024-06-29 13:19 | PM.CONSULT ---
Providers/Reason For Consult Consulting Physician/Specialty*: General Surgery Reason for Consult*: Abdominal pain, duodenitis, pancreatitis Primary Care Provider: Duglas Spnecer MD History of Present Illness History of Present Illness Tomeka Morrison is a 59 year old female Who has extensive medical history, she has history of chronic pancreatitis, she has had several episodes over the last couple of years, has history of previous pancreatic pseudocyst treated with a cyst gastrostomy, has had multiple periduodenal fluid collections related to her pancreatitis and had a pancreatic stent that was removed about a month ago. After removal she was told that if she had recurrent symptoms her stent will need to be replaced. She presents today to the hospital with severe epigastric abdominal pain that is similar to previous presentations of pancreatitis, also nausea and vomit. A CT that was done in the ER show severe inflammatory process in the right upper quadrant that involves the pancreas and duodenum the bile ducts and the gallbladder, there is a 3 cm fluid collection between the duodenum and the gallbladder there are some thickening of the gallbladder wall, no evidence of extraluminal air. I was consulted with this findings. Review of Systems General: Reports: 10 or more systems reviewed and unremarkable except in HPI and below Medications/Allergies Home Medications ?Medication ?Instructions ?Recorded ?Confirmed ?Last Taken ?Type nebulizers #1 ea 06/30/21 06/29/24 07/09/21 Rx isavuconazonium sulfate 186 mg 372 mg PO DAILY 12/02/23 06/29/24 06/28/24 History capsule (Cresemba) loperamide 2 mg capsule 2 mg PO Q6H PRN Diarrhea 12/02/23 06/29/24 Unknown History lisinopril 20 mg tablet 20 mg PO DAILY #90 tabs 12/29/23 06/29/24 06/29/24 Rx ipratropium 0.5 mg-albuterol 3 mg 3 ml inhalation Q8H PRN shortness 01/12/24 06/29/24 Unknown Rx (2.5 mg base)/3 mL nebulization of breath or wheezing #180 mL soln ipratropium bromide 17 1 puff inhalation QID PRN 01/12/24 06/29/24 Unknown Rx mcg/actuation HFA aerosol inhaler shortness of breath or wheezing (Atrovent HFA) #12.9 grams trazodone 100 mg tablet 100 mg PO BEDTIME PRN insomnia #30 04/27/24 06/29/24 06/28/24 Rx tabs pantoprazole 20 mg tablet,delayed 20 mg PO BID #30 tabs 05/23/24 06/29/24 06/29/24 Rx release ondansetron 4 mg disintegrating 4 mg PO Q6H PRN nausea and 06/26/24 06/29/24 Unknown Rx tablet vomiting #20 tabs atorvastatin 40 mg tablet 40 mg PO QPM 06/29/24 06/29/24 06/28/24 History clopidogrel 75 mg tablet (Plavix) 75 mg PO QAM 06/29/24 06/29/24 06/29/24 History dicyclomine 20 mg tablet 20 mg PO QID PRN Abdominal Pain 06/29/24 06/29/24 06/28/24 History gabapentin 300 mg capsule 300 mg PO BID 06/29/24 06/29/24 06/28/24 History hydroxyzine HCl 10 mg tablet 10 mg PO Q4H PRN anxiety 06/29/24 06/29/24 Unknown History ramelteon 8 mg tablet 8 mg PO BEDTIME PRN sleep 06/29/24 06/29/24 Unknown History Allergies Allergy/AdvReac Type Severity Reaction Status Date / Time No Known Allergies Allergy Verified 06/20/24 11:32 PFSH Acute PFSH: Medical History Pancreatic duct calculus Large stone on EGD found during admission 10/20 through 11/22/2023 at [place] as outpatient Alcohol-induced chronic pancreatitis 10/17/23 [facility] Admit Mediastinitis, chronic 10/17/23 -11/30/2023 [facility] stay, leak with mediastinitis and julianne empyema with gastrocystomy tube Pancreatic pseudocyst/cyst 10/17/23 -11/30/2023 [facility], thoracic infiltration with decortication of left lung chest tubes and Julianne albicans empyema and continues in right lung sulci, pancreatic duct is final 10/20 and removed 11/22/2023 Severe malnutrition Diverticulosis large intestine w/o perforation or abscess w/bleeding 07/10/2021 EGD gastritis duodenitis and hiatal hernia. Colonoscopy showed diverticulosis. Intra-abdominal lymphadenopathy Lumbar stenosis with neurogenic claudication Abdominal cramping Gastritis and duodenitis 07/10/2021 EGD gastritis duodenitis and hiatal hernia. Colonoscopy showed diverticulosis. Hematochezia MDD (major depressive disorder), recurrent severe, without psychosis Chronic intestinal ischemic syndrome smoker Alcohol abuse She states that she stopped in June 2023. Allergic rhinitis due to allergen Hyperlipidemia COPD (chronic obstructive pulmonary disease) CAD, multiple vessel 09/23/2015 3 stents placed, 06/30/2023 angioplasty x 2 Empyema IBS (irritable bowel syndrome) GERD (gastroesophageal reflux disease) Smoker Surgical History H/O section x2 History of lung surgery right History of PTCA History of colonoscopy Dr Poe EGD-Colon 02/2022 History of esophagogastroduodenoscopy 02/2022 Dr. Poe History of lumpectomy of left breast Family History Father CAD (coronary artery disease) Hypertension Heart disease Mother CAD (coronary artery disease) massive [place] at 65 - Hypertension Grandmother Dementia Brother Heart disease Denies family history of Colon cancer Ovarian cancer Diabetes Clotting disorder Hyperlipidemia Chronic kidney disease (CKD) Breast cancer Suicide Anesthesia complication Bleeding disorder Lung disease Cancer Uterine cancer Thyroid disease Stroke Social History Smoking and tobacco/nicotine status: current every day tobacco/nicotine user (1-1.5 ppd) Substance/Drug Use: never Vitals/I&O/Wt Last Vital Signs Temp 98.4 F 06/29/24 07:25 Pulse 95 06/29/24 11:51 Resp 17 06/29/24 09:00 BP 97/68 06/29/24 11:51 Pulse Ox 91 06/29/24 11:51 O2 Del Method Room Air 06/29/24 11:51 Weight last 48 hrs Weight 110 lb Physical Exam Narrative: Abdomen is soft there is tenderness in the epigastrium, no peritonitis Data 06/29/24 07:42 06/29/24 07:42 Micro: Microbiology 06/29/24 11:08 Blood Culture - Preliminary Blood SPECIMEN COLLECTED 06/29/24 11:04 Blood Culture - Preliminary Blood SPECIMEN COLLECTED A&P Assessment and plan (1) Duodenitis: (2) Chronic intestinal ischemic syndrome: (3) Pancreatic pseudocyst/cyst: (4) Alcohol-induced chronic pancreatitis: (5) Pancreatic duct calculus: (6) Intra-abdominal fluid collection: Plan 59-year-old female with history of recurrent pancreatitis who has been managed at higher level of care with stent placement. Now presenting with similar symptoms and a CT scan showing acute inflammatory process involving the duodenum pancreas and gallbladder. There is a fluid collection between the gallbladder and the duodenum measuring about 3 cm. There is no extraluminal air or other evidence of perforation but per radiology assessment they could not rule out a perforation due to the location of the fluid collection. She has a white count of 21, vital signs are otherwise stable. She has elevated lipase and alkaline phosphatase. After my assessment current patient symptoms are likely related to her history of chronic pancreatitis, since her pancreatic stent was removed her symptoms appear to have flared up. I do not suspect a perforation of the duodenum but at this point as there is no evidence of extraluminal air and the abdominal exam is not consistent with this possibility. There is ductal dilation in the extrahepatic biliary tree that has been seen also on previous evaluations and is likely related to the inflammation in the pancreatic head. There are some thickening of the gallbladder wall that appears to be stable with previous imaging in current imaging there is also some pericholecystic fluid that appears to be related to the local inflammatory process. I do not think there is an indication at this point to proceed with surgical intervention. The main goal will be to allow the patient to get to higher level of care to have a repeat endoscopy with stent placement. I do not recommend that we repeat the diagnostic endoscopy at our institution at the time as Patient has a known duodenal stricture and it usually requires a smaller scope to be able to advance through the area.Patient has been accepted to higher level of care for evaluation of current pathology but we are awaiting bed. In the interim I recommend starting with bowel rest, IV fluids and IV antibiotics. We should continue to monitor her CBC and CMP on a daily basis and in case of worsening on the white count or other vital signs we might consider additional intervention that may include gallbladder drainage for decompression.Case has been discussed with medical team PDMP PDMP Reviewed: Not Reviewed Coding Level of Care Code Acute Code for [facility] Diagnoses Duodenitis K29.80 Chronic intestinal ischemic syndrome K55.1 Pancreatic pseudocyst/cyst K86.2; K86.3 Alcohol-induced chronic pancreatitis K86.0 Pancreatic duct calculus K86.89 Intra-abdominal fluid collection R18.8
[2024-06-29] MEDS: pantoprazole 40 mg SDV IVP (13:23)
[2024-06-29] MEDS: VANCOMYCIN ADD-Vantage 1,000 MG in 0.9% NaCl ADD-Vantage 250 ML 250 MG IV (14:34)
[2024-06-29] MEDS: morphine 4 mg/mL SDV 1 mL 2 MG IVP (14:37)
[2024-06-29] MEDS: enoxaparin 40 mg/0.4 mL Syringe SUBCUT (14:40)
[2024-06-29] MEDS: sodium chloride 0.9% 1,000 ML 75 ML IV (14:41)
[2024-06-29 16:17] LABS: MRSA PCR OZH (swab) NOT DETECTED (Not Detecte)
[2024-06-29 16:55] LABS: Sodium 135 mmol/L (136-145)
[2024-06-29] MEDS: ondansetron hcl ODT 4 mg Tab PO (17:23)
[2024-06-29 17:58] LABS: Adenovirus Not Detected (NOT DETECT); Chlamydia Pneumoniae Not Detected (NOT DETECT); Coronavirus 229E,HKU1,NL63,OC4 Not Detected (NOT DETECT); Human Metapneumovirus Not Detected (NOT DETECT); Human Rhinovirus/Enterovirus Not Detected (NOT DETECT); Influenza A Not Detected (NOT DETECT); Influenza A H1 Not Detected (NOT DETECT); Influenza A H1-2009 Not Detected (NOT DETECT); Influenza A H3 Not Detected (NOT DETECT); Influenza B Not Detected (NOT DETECT); Mycoplasma Pneumoniae Not Detected (NOT DETECT); Parainfluenza Virus Type 1 Not Detected (NOT DETECT); Parainfluenza Virus Type 2 Not Detected (NOT DETECT); Parainfluenza Virus Type 3 Not Detected (NOT DETECT); Parainfluenza Virus Type 4 Not Detected (NOT DETECT); Respiratory Syncytial Virus A Not Detected (NOT DETECT); Respiratory Syncytial Virus B Not Detected (NOT DETECT); SARS-COV-2 Not Detected (NOT DETECT)
[2024-06-29] MEDS: atorvastatin 40 mg Tablet PO (18:49)
[2024-06-29] MEDS: HYDROMORPHONE HCL 0.5 MG/0.5 ML INJ IVP (18:49)
[2024-06-29] MEDS: ISAVUCONAZONIUM SULFATE 186 MG 372 EACH PO (21:39)
[2024-06-30] VITALS (7 sets, daily range): BP systolic 93–137; BP diastolic 53–73; PULSE 61–107; RESP 16–18; TEMP 36.4–36.9; O2SAT 96–100; BMI 19.3
[2024-06-30] MEDS: pantoprazole 40 mg SDV IVP ×2 (00:55→13:42)
[2024-06-30 01:07] LABS: Bilirubin Urine Negative (Negative); Blood Urine Negative (Negative); Glucose Urine UA Negative (Normal); Ketones Urine Negative (Negative); Leukocyte Esterase Urine Negative (Negative); Nitrate Urine Negative (Negative); Protein Urine Negative (Negative); Urine Appearance Clear (CLEAR); Urine Color Yellow (Yellow); Urobilinogen Urine 0.2 mg/dL (Negative)
[2024-06-30 01:30] LABS: Add Urine Microscopic? YES
[2024-06-30] MEDS: HYDROMORPHONE HCL 0.5 MG/0.5 ML INJ IVP ×4 (03:30→17:03)
[2024-06-30] MEDS: sodium chloride 0.9% 1,000 ML 75 ML IV ×2 (04:01→17:03)
[2024-06-30 04:50] LABS: Basophils # 0.1 10^3/uL (0.0-0.1); Basophils % 0.4 %; Eosinophils # 0.2 10^3/uL (0.0-0.8); Eosinophils % 1.8 %; Hematocrit 36.7 % (36-47); Lymphocytes # 1.3 10^3/uL (0.8-4.8); Lymphocytes % 9.9 %; Mean Corpuscular HGB Conc 33.5 g/dL (30-55); Mean Corpuscular Hemoglobin 30.1 pg (27-33); Mean Corpuscular Volume 89.7 fl (85-98); Mean Platelet Volume 8.5 fL (7.4-10.4); Monocytes # 0.7 10^3/uL (0.2-0.9); Monocytes % 5.7 %; Neutrophils # 10.36 10^3/uL (1.8-7.7); Neutrophils % 81.4 %; Nucleated Red Blood Cells % 0 %; Platelet Count 426 10^3/cmm (157-399); Red Blood Count 4.09 10^6/uL (3.85-5.65); White Blood Count 12.72 10^3/uL (3.29-11.43)
[2024-06-30] MEDS: ondansetron 2 mg/ML SDV 2 mL 4 MG IVP (05:06)
[2024-06-30] MEDS: clopidogrel 75 mg Tablet PO (05:07)
[2024-06-30 05:16] LABS: Alanine Aminotransferase 86 U/L (0-33); Albumin Level 3.4 g/dL (3.5-5.2); Alkaline Phosphatase 781 U/L (35-105); Anion Gap 15.9 (5-19); Aspartate Amino Transferase 65 U/L (0-32); Blood Urea Nitrogen 8 mg/dL (8-23); Calcium 8.9 mg/dL (8.5-10.5); Carbon Dioxide 22 mmol/L (22-29); Chloride 102 mmol/L (98-107); Creatinine Clr Calc Pharmacy 99.6918; Globulin 2.9 g/dL (1.3-4.6); Glomerular Filtration Rate 125.9 mL/min (90-130); Glucose 82 mg/dL (65-115); Magnesium 1.9 mg/dL (1.7-2.3); Osmolality Calculated 279 mOsm/kg (285-295); Potassium 3.9 mmol/L (3.5-5.1); Sodium 136 mmol/L (136-145); Total Bilirubin 0.5 mg/dL (0.15-1.2); Total Protein 6.3 g/dL (6.6-8.7)
--- NOTE | 2024-06-30 08:00 | P.PN_ITS ---
Subjective 2 Subjective: Interval improvement of symptoms. Patient feeling much better abdominal pain has significantly improved. She is hungry. Vitals/I&O/Wt Last Vital Signs Temp 97.6 F 06/30/24 07:51 Pulse 63 06/30/24 07:51 Resp 18 06/30/24 07:51 BP 106/61 06/30/24 07:51 Pulse Ox 99 06/30/24 07:51 O2 Del Method Room Air 06/30/24 07:51 06/29/24 06/30/24 06/30/24 22:59 06:59 14:59 Intake Total 2300 / 2300 1000 / 3300 Output Total 400 / 400 500 / 900 Balance 1900 / 1900 500 / 2400 Weight last 48 hrs Weight 112 lb 5 oz Weight 110 lb Weight 110 lb Physical Exam 2 GI: OTHER: Abdominal exam is benign abdomen soft there is very minimal tenderness in the epigastrium. Data 06/30/24 04:15 06/30/24 04:15 Micro: Microbiology 06/29/24 11:08 Blood Culture - Preliminary Blood SPECIMEN COLLECTED 06/29/24 11:04 Blood Culture - Preliminary Blood SPECIMEN COLLECTED A&P Assessment and plan (1) Duodenitis: (2) Pancreatic duct calculus: Plan Patient has shown improvement, white count has trended down to 12. Vital signs have remained stable. She has a high likelihood of ductal pathology her alkaline phosphatase continues to trend up. This patient is feeling well and has no significant pain I think will be okay for us to advance her to a clear liquid diet while we await transfer to higher level of care for endoscopic evaluation and possible stent placement. Patient shows understanding agrees with the plan PDMP PDMP Reviewed: Not Reviewed Attestations 2 Medical Necessity Statement*: Per medical team Coding Level of Care Code Acute Code for g Fwd Diagnoses Duodenitis K29.80 Pancreatic duct calculus K86.89
[2024-06-30] MEDS: vancomycin 1,250 MG/250 ML PIGGYBACK 166.67 MG IV (13:07)
--- NOTE | 2024-06-30 13:19 | PHA.VACGOAL ---
Vancomycin Goal - Goal Vancomycin Goal:: 15-20 mg/L Vancomycin Indication:: Other (SEPSIS) - Therapy Current therapy:: Pip/Tazo Day of therpy:: Day [1]of [] . Actual body weight (kg): 50.944 kg - Data Labs: WBC 12.72 10^3/uL (3.29-11.43) H 06/30/24 04:15 RBC 4.09 10^6/uL (3.85-5.65) 06/30/24 04:15 Hgb 12.30 g/dL (11.27-16.99) 06/30/24 04:15 Hct 36.7 % (36-47) 06/30/24 04:15 MCV 89.7 fl (85-98) D 06/30/24 04:15 MCH 30.1 pg (27-33) 06/30/24 04:15 MCHC 33.5 g/dL (30-55) D 06/30/24 04:15 RDW 14.0 % (12.1-15.1) 06/30/24 04:15 Sodium 136 mmol/L (136-145) 06/30/24 04:15 Potassium 3.9 mmol/L (3.5-5.1) 06/30/24 04:15 Chloride 102 mmol/L (98-107) 06/30/24 04:15 Carbon Dioxide 22 mmol/L (22-29) 06/30/24 04:15 Anion Gap 15.9 (5-19) 06/30/24 04:15 BUN 8 mg/dL (8-23) 06/30/24 04:15 Creatinine 0.5 mg/dL (0.5-0.9) 06/30/24 04:15 GFR Calculation 125.9 mL/min (90-130) 06/30/24 04:15 Treatment plan:: new consult Regimen:: New start vancomycin for sepsis. No history of vancomycin found. Received 1250 mg load dose. Started on maintenance dose of 1000 mg q12h based on population based pharmacokinetic nomogram.
[2024-06-30] MEDS: ISAVUCONAZONIUM SULFATE 186 MG 372 EACH PO (13:38)
[2024-06-30] MEDS: piperacillin-tazobactam 3.375 GM in sodium chloride 0.9% (plus) 50 ML IV (17:02)
[2024-06-30] MEDS: atorvastatin 40 mg Tablet PO (17:15)
--- NOTE | 2024-06-30 19:10 | P.TS_ITS ---
Transfer Summary Providers Date of Admission: 06/29/24 14:48 Date of Discharge/Transfer: 06/30/24 Attending Provider at Admission: Chaka Knight Attending Provider at Transfer: Chaka Knight Primary Care Provider: Duglas Spencer MD Transfer Plans: Anticipated date of transfer: 06/30/24 . Diagnoses at Discharge Discharge Diagnosis (1) Duodenitis: Status: Acute (2) Pancreatic duct calculus: Status: Acute Permanent problem details: Large stone on EGD found during admission 10/20 through 11/22/2023 at [facility] as outpatient Reason for Visit Reason for Visit abd pain Brief History: Tomeka Morrison is a 59 year old female with history of pancreatitis, initially alcohol-related, but reporting has not been drinking alcohol, subsequently with stenosis and multiple pancreatic stents, removed about a month ago trial of stent free period, history of pancreatic pseudocyst and drainage, gastritis, diverticulosis, IBS, history of alcohol induced chronic pancreatitis, smoking, on Cresemba, 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 In ER with leukocytosis 21.57, afebrile, heart rate 80s-90s, with hyponatremia 123, lactic acid is normal, lipase 136, CT abdomen pelvis with large bowel inflammation in the right upper quadrant continuous from gallbladder to the duodenum and pancreatic head. Marked mucosal and submucosal edema within the duodenum. Fluid collection with wall enhancement between gallbladder and the duodenum measuring 2.1 x 1 cm. Highly suspicious for an abscess. Could be due to perforated duodenal ulcer or pseudocyst and less likely gallbladder perforation. Cystic duct appears prominent and fluid-filled but no obstructing stone. Similar to prior exam. Mild gallbladder hydrops. Extensive calcifications in the pancreatic head from prior episodes of current pancreatitis. Progression of pancreatic duct dilation since 04/14/2024, pancreatic duct stent no longer identified. Small amount of free fluid. Gallbladder ultrasound with abnormal gallbladder, slightly hydropic with gallbladder wall thickening and pericholecystic fluid. Fluid collection between gallbladder and duodenum not well-visualized by ultrasound. Differential including acute cholecystitis. Based upon CT it is difficult to differentiate between acute pancreatitis and acute duodenal inflammation. Edematous pancreatic head with pancreatic ossifications from prior episodes of pancreatitis. Pancreatic duct is dilated. Dilated intrahepatic and expanded biliary ducts. Chronic finding with slight progression over several prior exams. Possible sepsis without endorgan injury currently with leukocytosis 21.5, tachycardia 90-100. Lactic acid normal. Blood cultures collected. Received Zosyn, and, sent. Source possible intra-abdominal abscess. Possible cholecystitis. 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 Question of possibly increased risk of rupture due to the process. Hospital Course Hospital Course She was started on antibiotic empiric coverage in case of possible intra- abdominal abscess, possible cholecystitis, pending transfer arrangements for further assessment by gastroenterology including with possible endoscopy which could not be obtained here due to known duodenal stricture and prior use of smaller disposable scopes at [facility], as well as consideration of ERCP, with epigastric pain, peripancreatic inflammation, possible acute on chronic pancreatitis, further reassessment for reinsertion of pancreatic stent, assessment of the localized collection, consideration of endoscopic sampling/drainage, and further specialist assessment of gallbladder wall thickening, pericholecystic fluid, consideration of possibility of cholecystitis, although possibly less likely, however, not a surgical candidate at this time, as well as with finding of 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 Blood cultures pending, urinalysis unremarkable. Today with some improvement in her symptoms with IV PPI. WBC down from 21-12.7. Alk phos did rise today from 599-781. T. bili remains normal. Minimal abnormality AST elderly T, 65, 86 respectively. No open bed at [facility] and unknown when this may become available on reaching out to them. Additionally with discussion with her reached out also to [facility], where she was actively accepted for further assessment and management after discussion with GI and hospitalist team. Physical Exam Const: COMMON NORMALS: patient oriented x3 and alert GENERAL APPEARANCE: cooperative ORIENTATION/CONSCIOUSNESS: Yes awake HENMT: COMMON NORMALS: oropharynx normal Neck/C-Spine: COMMON NORMALS: no JVD Resp: COMMON NORMALS: normal respiratory effort and clear to auscultation bilaterally AUSCULTATION: clear to auscultation bilaterally Cardio: COMMON NORMALS: no JVD, regular rhythm, S1 normal heart sound present, S2 normal heart sound present and No murmurs present (Cardio) RHYTHM: regular rhythm HEART SOUNDS: S1 normal heart sound present and S2 normal heart sound present GI: COMMON NORMALS: Normal to inspection, nondistended, normoactive bowel sounds present and Soft to palpation PALPATION: Yes Soft to palpation, Yes Tenderness to palpation present (GI) Details: RUQ and Yes Other GI palpation findings present (Epigastrium) Extremity: COMMON NORMALS: no joint enlargement and no pedal edema Neuro: COMMON NORMALS: patient oriented x3 and moves all extremities SENSORIUM/ORIENTATION: Yes alert OTHER: Anxious this morning, but agreeable to stay and continue care as well as arrangements for transfer for further assessment management of her condition as she understands it is different from her prior presentation with fairly new concerning findings as discussed with her with regards to fluid collection, pseudoaneurysm in addition to the epigastric and right upper quadrant inflammation needing further evaluation and management. Skin: COMMON NORMALS: no rashes or lesions noted GENERAL SKIN EXAM: no rashes or lesions noted TS Data Studies Completed and Pending Pending at discharge Category Date Time Status Blood Culture Stat Lab 06/29/24 11:08 Results Complete Blood Count w/Auto AM LABS Lab 07/01/24 04:00 Ordered Complete Blood Count w/Auto AM LABS Lab 07/02/24 04:00 Ordered Comprehensive Metabolic Panel AM LABS Lab 07/01/24 04:00 Ordered Comprehensive Metabolic Panel AM LABS Lab 07/02/24 04:00 Ordered Completed Studies During Hospitalization Category Date Time Status CT abdomen pelvis w con* [id number] Stat Cat Scan 06/29/24 08:15 Completed US gall bladder 10086 Stat Ultrasound 06/29/24 10:16 Completed Laboratory Last Values WBC 12.72 10^3/uL (3.29-11.43) H 06/30/24 04:15 RBC 4.09 10^6/uL (3.85-5.65) 06/30/24 04:15 Hgb 12.30 g/dL (11.27-16.99) 06/30/24 04:15 Hct 36.7 % (36-47) 06/30/24 04:15 MCV 89.7 fl (85-98) D 06/30/24 04:15 MCH 30.1 pg (27-33) 06/30/24 04:15 MCHC 33.5 g/dL (30-55) D 06/30/24 04:15 RDW 14.0 % (12.1-15.1) 06/30/24 04:15 Plt Count 426 10^3/cmm (157-399) H D 06/30/24 04:15 MPV 8.5 fL (7.4-10.4) 06/30/24 04:15 Neut % (Auto) 81.4 % 06/30/24 04:15 Lymph % (Auto) 9.9 % 06/30/24 04:15 Union % (Auto) 5.7 % 06/30/24 04:15 Eos % (Auto) 1.8 % 06/30/24 04:15 Baso % (Auto) 0.4 % 06/30/24 04:15 Neut # (Auto) 10.36 10^3/uL (1.8-7.7) H 06/30/24 04:15 Lymph # (Auto) 1.3 10^3/uL (0.8-4.8) 06/30/24 04:15 Union # (Auto) 0.7 10^3/uL (0.2-0.9) 06/30/24 04:15 Eos # (Auto) 0.2 10^3/uL (0.0-0.8) 06/30/24 04:15 Baso # (Auto) 0.1 10^3/uL (0.0-0.1) 06/30/24 04:15 Nucleated RBC % (auto) 0 % 06/30/24 04:15 Nucleated RBCs # 0.0 /100WBC 06/30/24 04:15 Sodium 136 mmol/L (136-145) 06/30/24 04:15 Potassium 3.9 mmol/L (3.5-5.1) 06/30/24 04:15 Chloride 102 mmol/L (98-107) 06/30/24 04:15 Carbon Dioxide 22 mmol/L (22-29) 06/30/24 04:15 Anion Gap 15.9 (5-19) 06/30/24 04:15 BUN 8 mg/dL (8-23) 06/30/24 04:15 Creatinine 0.5 mg/dL (0.5-0.9) 06/30/24 04:15 GFR Calculation 125.9 mL/min (90-130) 06/30/24 04:15 Glucose 82 mg/dL (65-115) 06/30/24 04:15 Calculated Osmolality 279 mOsm/kg (285-295) L 06/30/24 04:15 Lactic Acid 1.7 mmol/L (0.5-2.2) 06/29/24 07:42 Calcium 8.9 mg/dL (8.5-10.5) 06/30/24 04:15 Magnesium 1.9 mg/dL (1.7-2.3) 06/30/24 04:15 Total Bilirubin 0.5 mg/dL (0.15-1.2) 06/30/24 04:15 AST 65 U/L (0-32) H 06/30/24 04:15 ALT 86 U/L (0-33) H 06/30/24 04:15 Alkaline Phosphatase 781 U/L (35-105) H 06/30/24 04:15 Total Protein 6.3 g/dL (6.6-8.7) L D 06/30/24 04:15 Albumin 3.4 g/dL (3.5-5.2) L 06/30/24 04:15 Globulin 2.9 g/dL (1.3-4.6) 06/30/24 04:15 Lipase 136 U/L (13-60) H 06/29/24 07:42 Urine Color Yellow (Yellow) 06/30/24 01:00 Urine Appearance Clear (CLEAR) 06/30/24 01:00 Urine pH 7.0 (5-7) 06/30/24 01:00 Ur Specific [place] 1.010 (1.005-1.030) 06/30/24 01:00 Urine Protein Negative (Negative) 06/30/24 01:00 Urine Glucose (UA) Negative (Normal) 06/30/24 01:00 Urine Ketones Negative (Negative) 06/30/24 01:00 Urine Blood Negative (Negative) 06/30/24 01:00 Urine Nitrate Negative (Negative) 06/30/24 01:00 Urine Bilirubin Negative (Negative) 06/30/24 01:00 Urine Urobilinogen 0.2 mg/dL (Negative) 06/30/24 01:00 Ur Leukocyte Esterase Negative (Negative) 06/30/24 01:00 Urine RBC None /hpf (0-2) 06/30/24 01:00 Urine WBC None /hpf (0-5) 06/30/24 01:00 Ur Squamous Epith Cells None /hpf (0-5) 06/30/24 01:00 Amorphous Sediment Not Reportable 06/30/24 01:00 Urine Bacteria None /hpf (NONE) 06/30/24 01:00 Nasal MRSA (PCR) Not detected (Not Detecte) 06/29/24 14:37 Coronavirus 229E (PCR) Not detected (NOT DETECT) 06/29/24 13:47 SARS-CoV-2 (PCR) Not detected (NOT DETECT) 06/29/24 13:47 Radiology Impressions Abdomen/Pelvis CT 06/29/24 08:15 IMPRESSION: 1. Large amount of acute inflammation in the RIGHT upper quadrant contiguous from the gallbladder to the duodenum and pancreatic head. There is marked mucosal and submucosal edema within the duodenum. 2. Fluid collection with wall enhancement between the gallbladder and the duodenum measures 3.1 x 1.0 cm. Highly suspicious for an abscess. This could be due to a perforated duodenal ulcer or pseudocyst and less likely gallbladder perforation. 3. Cystic duct also appears prominent and fluid-filled but no obstructing stone. Similar to the prior exam. 4. Mild gallbladder hydrops. 5. Extensive calcifications in the pancreatic head from prior episodes of chronic pancreatitis. 6. Progression of pancreatic duct dilatation since 04/14/2024. Pancreatic duct stent is no longer identified. 7. Small amount of free fluid. Notified Shefali Canseco MD at 06/29/2024 8:58 AM. Gallbladder Ultrasound 06/29/24 10:16 IMPRESSION: 1. Abnormal gallbladder. Gallbladder is slightly hydropic with gallbladder wall thickening and pericholecystic fluid. The fluid collection between the gallbla dder and the duodenum is not as well visualized by ultrasound. Differential includes acute cholecystitis. Based upon the CT findings it is difficult to differentiate between acute pancreatitis and acute duodenal inflammation. 2. Edematous pancreatic head with pancreatic calcifications from prior episodes of pancreatitis. Pancreatic duct is dilated. 3. Dilated intrahepatic and extrahepatic biliary ducts. Chronic finding with slight progression over several prior examinations. Recent Clincial Data Last Vital Signs Temp 98.5 F 06/30/24 15:32 Pulse 107 H 06/30/24 15:32 Resp 18 06/30/24 15:32 BP 137/57 06/30/24 15:32 Pulse Ox 96 06/30/24 15:32 O2 Del Method Room Air 06/30/24 15:32 Vital Signs Temp Pulse Resp BP Pulse Ox O2 Del Method 06/30/24 15:32 98.5 F 107 H 18 137/57 96 Room Air 06/30/24 11:51 97.6 F 62 17 122/72 100 Room Air 06/30/24 07:51 97.6 F 63 18 106/61 99 Room Air Intake & Output/Weight 06/28/24 06/29/24 06/30/24 07/01/24 06:59 06:59 06:59 06:59 Intake Total 3300 / 3300 2073.614 / 2073.614 Output Total 900 / 900 1800 / 1800 Balance 2400 / 2400 273.614 / 273.614 Weight 50.944 kg Vitals Last Vital Signs Temp 98.5 F 06/30/24 15:32 Pulse 107 H 06/30/24 15:32 Resp 18 06/30/24 15:32 BP 137/57 06/30/24 15:32 Pulse Ox 96 06/30/24 15:32 O2 Del Method Room Air 06/30/24 15:32 TS Medications Medications Acetaminophen (Acetaminophen 325 Mg Tablet) 650 mg PO Q6H PRN PRN Reason: Mild/Mod Pain Or Temp >/= 101 Albuterol/Ipratropium (Ipratropium-Albuterol 3 Ml Neb) 3 ml INHALATION Q8H PRN PRN Reason: shortness of breath or wheezing Atorvastatin Calcium (Atorvastatin 40 Mg Tablet) 40 mg PO QPM [facility] Last Admin: 06/30/24 17:15 Dose: 40 mg Clopidogrel Bisulfate (Clopidogrel 75 Mg Tablet) 75 mg PO QAM [facility] [place] Last Admin: 06/30/24 05:07 Dose: 75 mg Dicyclomine HCl (Dicyclomine 20 Mg Tablet) 20 mg PO QID PRN PRN Reason: Abdominal Pain Enoxaparin Sodium (Enoxaparin 40 Mg/0.4 Ml Syringe) 40 mg SUBCUT Q24H [facility] [place] Last Admin: 06/30/24 13:40 Dose: Not Given Hydromorphone HCl (Hydromorphone Hcl 0.5 Mg/0.5 Ml Inj) 0.75 mg IVP Q4H PRN PRN Reason: pain Sodium Chloride (Sodium Chloride 0.9%) 1,000 mls @ 75 mls/hr IV .[id number] [facility] [place] Last Admin: 06/30/24 17:03 Dose: 75 mls/hr Piperacillin Sod/Tazobactam (Sod 3.375 gm/ Sodium Chloride) 50 mls @ 12.5 mls/hr IV Q8H [facility] [place]; Protocol Last Admin: 06/30/24 17:02 Dose: 12.5 mls/hr Vancomycin HCl 1,000 mg/ (Sodium Chloride) 250 mls @ 250 mls/hr IV Q12H [facility] [place] Non-Formulary Medication (Isavuconazonium Sulfate [Cresemba]) 372 mg PO 1400 [facility] [place] Last Admin: 06/30/24 13:38 Dose: 372 mg Non-Formulary Medication (Ramelteon) 8 mg PO BEDTIME PRN PRN Reason: sleep Ondansetron HCl (Ondansetron Hcl Odt 4 Mg Tab) 4 mg PO Q6H PRN PRN Reason: nausea and vomiting Last Admin: 06/29/24 17:23 Dose: 4 mg Pantoprazole Sodium (Pantoprazole 40 Mg Sdv) 40 mg IVP Q12H [facility] [place] Last Admin: 06/30/24 13:42 Dose: 40 mg Trazodone HCl (Trazodone 100 Mg Tablet) 100 mg PO BEDTIME PRN PRN Reason: insomnia Discontinued Medications Hydromorphone HCl (Hydromorphone Hcl 0.5 Mg/0.5 Ml Inj) 1 mg IVP ONCE ONE Stop: 06/29/24 09:56 Last Admin: 06/29/24 10:19 Dose: 1 mg Hydromorphone HCl (Hydromorphone Hcl 0.5 Mg/0.5 Ml Inj) 0.5 mg IVP Q4H PRN PRN Reason: BREAKTHROUGH PAIN Last Admin: 06/30/24 17:03 Dose: 0.5 mg Hydromorphone HCl (Hydromorphone Hcl 0.5 Mg/0.5 Ml Inj) 1 mg IVP ONCE ONE Stop: 06/29/24 21:08 Last Admin: 06/29/24 21:39 Dose: 1 mg Sodium Chloride (Sodium Chloride 0.9%) 1,000 mls @ 999 mls/hr IV .Q1H1M ONE Stop: 06/29/24 09:22 Last Infusion: 06/29/24 18:56 Dose: Infused Piperacillin Sod/Tazobactam (Sod 3.375 gm/ Sodium Chloride) 50 mls @ 100 mls/hr IV ONCE ONE; Protocol Stop: 06/29/24 09:29 Last Infusion: 06/29/24 18:56 Dose: Infused Sodium Chloride (Sodium Chloride 0.9%) 1,000 mls @ 999 mls/hr IV .Q1H1M ONE Stop: 06/29/24 12:34 Last Infusion: 06/29/24 18:56 Dose: Infused Vancomycin HCl 1,000 mg/ (Sodium Chloride) 250 mls @ 250 mls/hr IV ONCE ONE; Protocol Stop: 06/29/24 14:24 Last Infusion: 06/29/24 18:56 Dose: Infused Vancomycin HCl (Vancocin) 1,250 mg in 250 mls @ 166.667 mls/hr IV ONCE ONE Stop: 06/30/24 13:14 Last Infusion: 06/30/24 13:56 Dose: Infused Iohexol (Iohexol 350 Mg/Ml 500 Ml Btl (Per Ml)) 0 ml IV ONCE ONE Stop: 06/29/24 08:30 Last Admin: 06/29/24 08:29 Dose: 100 ml Lorazepam (Lorazepam 2 Mg/Ml Inj 1 Ml) Confirm Administered Dose 2 mg .ROUTE .STK-MED ONE Stop: 06/29/24 15:12 Last Admin: 06/29/24 16:36 Dose: Not Given Morphine Sulfate (Morphine 4 Mg/Ml Sdv 1 Ml) 4 mg IVP ONCE ONE Stop: 06/29/24 07:32 Last Admin: 06/29/24 07:39 Dose: 4 mg Morphine Sulfate (Morphine 4 Mg/Ml Sdv 1 Ml) 2 mg IVP Q4H PRN PRN Reason: SEVERE PAIN Last Admin: 06/29/24 14:37 Dose: 2 mg Ondansetron HCl (Ondansetron 2 Mg/Ml Sdv 2 Ml) 4 mg IVP ONCE ONE Stop: 06/29/24 07:32 Last Admin: 06/29/24 07:39 Dose: 4 mg Ondansetron HCl (Ondansetron 2 Mg/Ml Sdv 2 Ml) 4 mg IVP ONCE ONE Stop: 06/30/24 04:22 Last Admin: 06/30/24 05:06 Dose: 4 mg Allergies No Known Allergies Allergy (Verified 06/20/24 11:32) Home Medications nebulizers #1 ea 06/30/21 [Rx Confirmed 06/29/24] isavuconazonium sulfate 186 mg capsule (Cresemba) 372 mg PO DAILY 12/02/23 [History Confirmed 06/29/24] loperamide 2 mg capsule 2 mg PO Q6H PRN Diarrhea 12/02/23 [History Confirmed 06/29/24] lisinopril 20 mg tablet 20 mg PO DAILY #90 tabs 12/29/23 [Rx Confirmed 06/29/24] ipratropium 0.5 mg-albuterol 3 mg (2.5 mg base)/3 mL nebulization soln 3 ml inhalation Q8H PRN shortness of breath or wheezing #180 mL 01/12/24 [Rx Confirmed 06/29/24] ipratropium bromide 17 mcg/actuation HFA aerosol inhaler (Atrovent HFA) 1 puff inhalation QID PRN shortness of breath or wheezing #12.9 grams 01/12/24 [Rx Confirmed 06/29/24] trazodone 100 mg tablet 100 mg PO BEDTIME PRN insomnia #30 tabs 04/27/24 [Rx Confirmed 06/29/24] pantoprazole 20 mg tablet,delayed release 20 mg PO BID #30 tabs 05/23/24 [Rx Confirmed 06/29/24] ondansetron 4 mg disintegrating tablet 4 mg PO Q6H PRN nausea and vomiting #20 tabs 06/26/24 [Rx Confirmed 06/29/24] atorvastatin 40 mg tablet 40 mg PO QPM 06/29/24 [History Confirmed 06/29/24] clopidogrel 75 mg tablet (Plavix) 75 mg PO QAM 06/29/24 [History Confirmed 06/29/24] dicyclomine 20 mg tablet 20 mg PO QID PRN Abdominal Pain 06/29/24 [History Confirmed 06/29/24] gabapentin 300 mg capsule 300 mg PO BID 06/29/24 [History Confirmed 06/29/24] hydroxyzine HCl 10 mg tablet 10 mg PO Q4H PRN anxiety 06/29/24 [History Confirmed 06/29/24] ramelteon 8 mg tablet 8 mg PO BEDTIME PRN sleep 06/29/24 [History Confirmed 06/29/24] Discharge Plan Discharge Patient Disposition: Xfer Short-Term Hosp Condition: Stable Prescriptions: No Action Atrovent HFA 17 mcg/actuation HFA aerosol inhaler 1 puff inhalation QID PRN (Reason: shortness of breath or wheezing) Qty: 12.9 5RF ipratropium-albuterol 0.5 mg-3 mg(2.5 mg base)/3 mL solution for nebulization 3 ml inhalation Q8H PRN (Reason: shortness of breath or wheezing) Qty: 180 3RF lisinopril 20 mg tablet 20 mg PO DAILY Qty: 90 3RF (DME) nebulizers Misc See Rx Instructions .Route Qty: 1 0RF Rx Instructions: As directed, use every 4-6 hours, as needed. Cresemba 186 mg capsule 372 mg PO DAILY loperamide 2 mg capsule 2 mg PO Q6H PRN (Reason: Diarrhea) trazodone 100 mg tablet 100 mg PO BEDTIME PRN (Reason: insomnia) Qty: 30 0RF pantoprazole 20 mg tablet,delayed release (DR/EC) 20 mg PO BID Qty: 30 2RF ondansetron 4 mg tablet,disintegrating 4 mg PO Q6H PRN (Reason: nausea and vomiting) Qty: 20 0RF dicyclomine 20 mg tablet 20 mg PO QID PRN (Reason: Abdominal Pain) atorvastatin 40 mg tablet 40 mg PO QPM clopidogrel [Plavix] 75 mg tablet 75 mg PO QAM gabapentin 300 mg capsule 300 mg PO BID hydroxyzine HCl 10 mg tablet 10 mg PO Q4H PRN (Reason: anxiety) ramelteon 8 mg tablet 8 mg PO BEDTIME PRN (Reason: sleep) Referrals: Duglas Spencer MD [Primary Care Provider] - 4-7 days Patient Instructions: Opioid Safety Transfer Attestations Time Spent in Transfer Care: greater than 30 min Quality Metrics Clinical Quality Measures [ No reported AMI, CVA or VTE this stay] Coding Level of Care Code 87790 Total time (in minutes) for Discharge: 60 Diagnoses Duodenitis K29.80 Pancreatic duct calculus K86.89
--- NOTE | 2024-06-30 21:22 | PC.NURSE ---
Patient left facility at 1939 via EMS. Report called to MICHAEL Cool at [facility] at 2114 by this nurse. All questions answered and no further questions at this time.
== END 2024-06-30 19:40 | disposition short-term general hospital (02) | DRG 391 ==
LOC: ER 07:33 → ER IP 14:48 → MEDSURG 17:05
PROVIDERS: Admitting Provider Internal Medicine; Emergency Provider Emergency Medicine; PCP Family Medicine Adult Medicine; Visit Provider Internal Medicine
DX: K29.80 Duodenitis without bleeding (principal); E43 Unspecified severe protein-calorie malnutrition; K86.0 Alcohol-induced chronic pancreatitis; Z68.1 Body mass index [BMI] 19.9 or less, adult; F33.2 Major depressive disorder, recurrent severe without psychotic features; K55.1 Chronic vascular disorders of intestine; K82.1 Hydrops of gallbladder; E87.1 Hypo-osmolality and hyponatremia; F10.10 Alcohol abuse, uncomplicated; K57.30 Diverticulosis of large intestine without perforation or abscess without bleeding; E78.5 Hyperlipidemia, unspecified; J44.9 Chronic obstructive pulmonary disease, unspecified; I25.10 Atherosclerotic heart disease of native coronary artery without angina pectoris; Z95.5 Presence of coronary angioplasty implant and graft; K58.9 Irritable bowel syndrome, unspecified; K21.9 Gastro-esophageal reflux disease without esophagitis; F17.210 Nicotine dependence, cigarettes, uncomplicated; R00.0 Tachycardia, unspecified; R74.8 Abnormal levels of other serum enzymes; K86.89 Other specified diseases of pancreas; I10 Essential (primary) hypertension
CPT/HCPCS: 36415; 74177; 76705; 80053; 81001; 83605; 83690; 83735; 84295; 85025; 87040; 87635; 96365; 96372; 96375; 96376; 99285; J1171; J1650; J2270; J2405; J2470; J2543; J3370; J7030; J7050; Q0162

== ENCOUNTER 2024-08-10 08:29 | Outpatient (CLI) | payer MEDICAID, SELFPAY ==
--- NOTE | 2024-08-10 08:40 | MM_ITS ---
WS: [id number] BILATERAL SCREENING DIGITAL TOMOSYNTHESIS MAMMOGRAM WITH CAD HISTORY: Screening mammogram COMPARISON: 01/09/2022 Bilateral CC and MLO views with tomosynthesis and synthetic mammography submitted. Computer aided detection analyzed. Breast composition: The breasts are heterogeneously dense, which may obscure small masses. No suspicious masses, microcalcifications or architectural distortion. Benign calcifications LEFT breast. MM/MM scr tomosynthesis [id number] IMPRESSION: BI-RADS: 2 - Benign FOLLOW UP: 1 Year Follow-up
== END 2024-08-10 08:30 | disposition home or self-care (01) ==
PROVIDERS: PCP Family Medicine; Visit Provider Family Medicine
DX: Z12.31 Encounter for screening mammogram for malignant neoplasm of breast (principal); R92.333 Mammographic heterogeneous density, bilateral breasts; R92.1 Mammographic calcification found on diagnostic imaging of breast
CPT/HCPCS: 77063; 77067

== ENCOUNTER → 2024-08-17 10:30 | Outpatient (BNVA) | payer MEDICAID, SELFPAY | PROVIDERS: PCP Family Medicine; Visit Provider Family Medicine | DX: Z01.419 Encounter for gynecological examination (general) (routine) without abnormal findings (principal) | CPT/HCPCS: 87624 ==

== ENCOUNTER → 2024-11-28 13:47 | Outpatient (BNVA) | payer MEDICAID, SELFPAY | PROVIDERS: PCP Family Medicine; Visit Provider Family Medicine | DX: Z51.81 Encounter for therapeutic drug level monitoring (principal); E78.5 Hyperlipidemia, unspecified; Z13.6 Encounter for screening for cardiovascular disorders | CPT/HCPCS: 80053; 80061; 85025 ==

== ENCOUNTER → 2024-12-29 10:15 | Outpatient (BNVA) | payer MEDICAID, SELFPAY | PROVIDERS: PCP Family Medicine; Visit Provider Internal Medicine Cardiovascular Disease | DX: I25.10 Atherosclerotic heart disease of native coronary artery without angina pectoris (principal); I10 Essential (primary) hypertension; E78.5 Hyperlipidemia, unspecified; K86.3 Pseudocyst of pancreas; J86.9 Pyothorax without fistula; F17.210 Nicotine dependence, cigarettes, uncomplicated; Z95.5 Presence of coronary angioplasty implant and graft | CPT/HCPCS: 99214 ==

== ENCOUNTER → 2025-01-16 10:57 | Outpatient (BNVA) | payer MEDICAID, SELFPAY | PROVIDERS: PCP Family Medicine; Referring Provider Orthopaedic Surgery; Visit Provider Nurse Practitioner Family | DX: M48.062 Spinal stenosis, lumbar region with neurogenic claudication (principal); F17.210 Nicotine dependence, cigarettes, uncomplicated | CPT/HCPCS: 99214 ==

== ENCOUNTER → 2025-01-24 10:35 | Outpatient (BNVA) | payer MEDICAID, SELFPAY | PROVIDERS: PCP Family Medicine; Visit Provider Nurse Practitioner Family | DX: M79.18 Myalgia, other site (principal); M48.062 Spinal stenosis, lumbar region with neurogenic claudication; F17.210 Nicotine dependence, cigarettes, uncomplicated | CPT/HCPCS: 20553; 99214; J1010; J3490 ==

== ENCOUNTER → 2025-02-07 09:36 | Outpatient (BNVA) | payer MEDICAID, SELFPAY | PROVIDERS: PCP Family Medicine; Visit Provider Nurse Practitioner Family | DX: M48.062 Spinal stenosis, lumbar region with neurogenic claudication (principal) | CPT/HCPCS: 99214 ==

== ENCOUNTER → 2025-03-07 09:16 | Outpatient (BNVA) | payer MEDICAID, SELFPAY | PROVIDERS: PCP Family Medicine; Visit Provider Nurse Practitioner Family | DX: M48.062 Spinal stenosis, lumbar region with neurogenic claudication (principal) | CPT/HCPCS: 99214 ==

== ENCOUNTER → 2025-03-19 08:53 | Outpatient (BNVA) | payer MEDICAID, SELFPAY | PROVIDERS: PCP Family Medicine; Visit Provider Family Medicine | DX: K86.2 Cyst of pancreas (principal); K86.3 Pseudocyst of pancreas; Z51.81 Encounter for therapeutic drug level monitoring | CPT/HCPCS: 80053; 80061; 83690; 85025 ==

== ENCOUNTER → 2025-04-18 08:24 | Outpatient (BNVA) | payer MEDICAID, SELFPAY | PROVIDERS: PCP Family Medicine; Visit Provider Nurse Practitioner Family | DX: M48.062 Spinal stenosis, lumbar region with neurogenic claudication (principal) | CPT/HCPCS: 99214 ==